=== PATIENT | male | born 1950 | race Two or more races ===

== ENCOUNTER 2020-05-06 07:32 | Outpatient (REF) | payer MEDICARE, SELFPAY ==
[2020-05-06 08:42] LABS: MANUAL DIFF FLAG NO
[2020-05-06 08:46] LABS: Hemoglobin 15.3 g/dl (14.0-18.0); Red Blood Count 4.98 X10*6/uL (4.60-5.80); White Blood Count 9.4 X10*3/uL (4.8-10.8)
[2020-05-06 08:47] LABS: Basophils Absolute Auto 0.1 X10*3/uL (0.0-0.2); Basophils Percent Auto 0.6 % (0-2); Eosinophils Percent Auto 10.5 % (0-4); Hematocrit 45.4 % (42-52); Imm Gran Abs Auto 0.04 X10*3/uL (0.00-0.03); Imm Gran Pct Auto 0.4 % (0.0-0.4); Lymphocytes Absolute Auto 2.3 X10*3/uL (1.2-4.9); Lymphocytes Percent Auto 24.7 % (20-40); Mean Corpuscular HGB Conc 33.7 g/dl (31.0-36.0); Mean Corpuscular Hemoglobin 30.7 pg (27.0-33.0); Mean Corpuscular Volume 91.2 fL (80-98); Mean Platelet Volume 10.7 fL (9.4-12.4); Monocytes Absolute Auto 0.7 X10*3/uL (0.1-1.2); Monocytes Percent Auto 7.5 % (2-11); Neutrophils Absolute Auto 5.3 X10*3/uL (2.0-8.3); Neutrophils Percent Auto 56.3 % (45-73); Platelet Count 228 X10*3/uL (160-400)
[2020-05-06 09:14] LABS: Glucose Urine UA NEG (NEG); Leukocyte Esterase Urine NEG (NEG); Nitrite Urine NEG (NEG); Specific Gravity - Urine >= 1.030 (1.005-1.025); Urine Blood NEG (NEG); Urine Ketones NEG (NEG); Urine Protein 1+ MG/DL (NEG-TRACE)
[2020-05-06 09:16] LABS: Appearance Urine CLEAR; Color Urine YELLOW
[2020-05-06 09:21] LABS: Albumin Level 4.4 g/dL (3.5-5.0); Anion Gap 9 (12-20); Blood Urea Nitrogen 18 mg/dL (9-16); Calcium 9.3 mg/dL (8.4-10.2); Carbon Dioxide 29 mmol/L (22-29); Chloride 108 mmol/L (96-108); Estimated Glomerular Filt Rate 60; Magnesium 2.3 mg/dL (1.6-2.6); Phosphorus 2.5 mg/dL (2.7-4.5); Potassium 4.7 mmol/L (3.3-5.1); Sodium 141 mmol/L (135-145)
[2020-05-06 09:34] LABS: Vitamin D 25-OH Total 23.3 ng/mL (>30)
[2020-05-06 09:41] LABS: Renal w Reflex Lab Use Only Order verified
[2020-05-06 09:41] LABS: UACC CULT YES
[2020-05-06 09:42] LABS: Bacteria Urine TRACE /LPF; Mucus Urine 2+ /LPF; RBC Urine 0-2 /HPF (0); Squamous Epithelial Cell Urine TRACE /LPF
[2020-05-06 10:45] LABS: Creatinine Urine 188.61 mg/dL; Microalbum/Creatinine Ratio Ur 170.7 ug/mg cr; Protein/Creatinine Ratio, Ur 0.33 (<0.2); Total Protein Urine Random 62 mg/dL (<12)
[2020-05-06 12:14] LABS: Renal w Reflex-LAB USE ONLY Order Verified
[2020-05-07 16:36] LABS: Calcium (PTHI) 9.3 mg/dL (8.6-10.3); PTHI 61 pg/mL (14-64)
== END 2020-05-06 07:33 | disposition home or self-care (01) ==
LOC: HO.LAB 07:32
PROVIDERS: PCP Internal Medicine; Visit Provider Internal Medicine Nephrology
DX: I12.9 Hypertensive chronic kidney disease with stage 1 through stage 4 chronic kidney disease, or unspecified chronic kidney disease (principal); N18.31 Chronic kidney disease, stage 3a
CPT/HCPCS: 36415; 80051; 81001; 81003; 82040; 82043; 82306; 82310; 82565; 83735; 83970; 84100; 84156; 84520; 85025; 87086

== ENCOUNTER 2020-06-10 07:09 | Outpatient (REF) | payer MEDICARE, MEDICAID, SELFPAY ==
[2020-06-10 08:46] LABS: Cholesterol 113 mg/dL; HDL Cholesterol 38 mg/dL; LDL Cholesterol Calculated 57 mg/dl; Triglycerides 92 mg/dL
== END 2020-06-10 07:10 | disposition home or self-care (01) ==
LOC: HO.LAB 07:09
PROVIDERS: PCP Internal Medicine; Visit Provider Internal Medicine Cardiovascular Disease
DX: E78.5 Hyperlipidemia, unspecified (principal)
CPT/HCPCS: 36415; 80061

== ENCOUNTER → 2020-08-06 09:42 | Outpatient (REF) | payer MEDICARE, MEDICAID, SELFPAY ==
--- NOTE | ~2020-08-06 | NM_ITS ---
EXERCISE MYOCARDIAL PERFUSION STUDY INDICATION: Coronary disease, NSTEMI, assess for ischemia TECHNIQUE: The patient was brought in for an exercise perfusion study on 08/06/2020. Patient performed exercise as per Justin protocol and was injected 25 mCi of sestamibi once target heart rate was achieved. Images were obtained using the SPECT gamma camera interlaced with the gating device. Images were obtained in supine position. Resting perfusion study was performed on 08/07/2020. Patient was administered 25 mCi of sestamibi intravenously at rest. Images were then obtained in supine position. Total DLP 51mGy-cm. Images were processed with the software and compared side to side in short axis, horizontal long axis and vertical long axis views. FINDINGS: Raw images were reviewed. The stress perfusion study showed diminished tracer uptake along the inferior wall, more so in the basal aspect. With CT attenuation correction, there seems to be improvement and hence suggestive of diaphragmatic attenuation artifact. The gated study shows diminished LV systolic function with calculated LVEF of 48%. LV cavity is normal in size. The gated study shows normal wall thickening and contraction of segments. Resting study shows diminished tracer uptake along the inferior wall, more so in the basal aspect. There is improvement with CT attenuation correction and hence suggestive of diaphragmatic artifact. Gating at rest reveals normal wall motion with ejection fraction at 47%. The findings are consistent with no definite reversible or fixed perfusion defects. NM/NM leydi perf SPECT rest & str IMPRESSION: 1. Myocardial perfusion imaging study shows likely normal perfusion. No definitive evidence of any ischemia or infarction. 2. Gated LVEF is 48% during stress and 47% during rest. 3. Transient ischemic dilatation not present. EKG component of the test reported separately.
--- NOTE | 2020-08-06 09:45 | CA_ITS ---
Acquisition Time: 2020-08-06 10:15:08 Total Exercise Time: 00:05:38 Test Indications: CAD, SC Medications: SEE CHART Protocol: LEONOR Max HR: 131 BPM 87% of Pred: 149 BPM Max BP: 176/084 mmHG Max Work Load: 7.0 METS Exercise stress test with exercise 5 min 38 sec of Leonor protocol, with report of 1/10 mid chest pressure and 1/10 left jaw discomfort, with isolated PACs, with normotensive response to exercise, with up to 1mm hortizontal ST depression V5-V6 at peak exercise, then in recovery developed borderliine ST depression with downsloping STs inferiorly and V4-V6 with gradual improvement back to baseline. In recovery his chest and jaw discomfort resolved. Nuclear images pending. Test reviewed with Dr Eastman. Referred By: Cesar Armenta Overread By: DONATO ROBERTSON
== END ==
LOC: HO.CARD 09:42
PROVIDERS: Visit Provider Internal Medicine Cardiovascular Disease
DX: I25.10 Atherosclerotic heart disease of native coronary artery without angina pectoris (principal)
CPT/HCPCS: 78452; 93017; A9500

== ENCOUNTER 2020-09-25 07:44 | Outpatient (REF) | payer MEDICARE, MEDICAID, SELFPAY ==
[2020-09-25 08:31] LABS: MANUAL DIFF FLAG NO
[2020-09-25 08:33] LABS: Basophils Absolute Auto 0.1 X10*3/uL (0.0-0.2); Basophils Percent Auto 0.7 % (0-2); Eosinophils Absolute Auto 0.7 X10*3/uL (0.0-0.4); Eosinophils Percent Auto 8.1 % (0-4); Hematocrit 43.5 % (42-52); Imm Gran Abs Auto 0.03 X10*3/uL (0.00-0.03); Imm Gran Pct Auto 0.4 % (0.0-0.4); Lymphocytes Absolute Auto 2.1 X10*3/uL (1.2-4.9); Lymphocytes Percent Auto 25.7 % (20-40); Mean Corpuscular HGB Conc 34.5 g/dl (31.0-36.0); Mean Corpuscular Hemoglobin 30.7 pg (27.0-33.0); Mean Platelet Volume 10.6 fL (9.4-12.4); Monocytes Absolute Auto 0.6 X10*3/uL (0.1-1.2); Monocytes Percent Auto 7.3 % (2-11); Neutrophils Absolute Auto 4.7 X10*3/uL (2.0-8.3); Neutrophils Percent Auto 57.8 % (45-73); Platelet Count 256 X10*3/uL (160-400); Red Blood Count 4.89 X10*6/uL (4.60-5.80); Red Cell Distribution Width 12.4 % (11.0-16.0); White Blood Count 8.1 X10*3/uL (4.8-10.8)
[2020-09-25 09:42] LABS: Albumin Level 4.2 g/dL (3.5-5.0); Anion Gap 10 (12-20); Blood Urea Nitrogen 17 mg/dL (9-16); Calcium 9.4 mg/dL (8.4-10.2); Carbon Dioxide 27 mmol/L (22-29); Chloride 106 mmol/L (96-108); Estimated Glomerular Filt Rate 55; Magnesium 2.1 mg/dL (1.6-2.6); Phosphorus 2.3 mg/dL (2.7-4.5); Potassium 4.4 mmol/L (3.3-5.1); Sodium 139 mmol/L (135-145)
[2020-09-25 09:57] LABS: Vitamin D 25-OH Total 31.8 ng/mL (>30)
[2020-09-25 10:16] LABS: Glucose Urine UA NEG (NEG); Leukocyte Esterase Urine NEG (NEG); Nitrite Urine NEG (NEG); Specific Gravity - Urine >= 1.030 (1.005-1.025); Urine Blood NEG (NEG); Urine Ketones 5 MG/DL (NEG); Urine Protein 1+ MG/DL (NEG-TRACE)
[2020-09-25 10:22] LABS: Appearance Urine HAZY; Color Urine YELLOW
[2020-09-25 11:33] LABS: Microalbum/Creatinine Ratio Ur 16.1 ug/mg cr; Total Protein Urine Random 59 mg/dL (<12)
[2020-09-25 12:17] LABS: Bacteria Urine TRACE /LPF; Calcium Oxalate Crystals Urine 1+ /LPF; Mucus Urine 2+ /LPF; RBC Urine 0-2 /HPF (0); Squamous Epithelial Cell Urine 1+ /LPF
[2020-09-26 17:51] LABS: Calcium (PTHI) 9.4 mg/dL (8.6-10.3); PTHI 59 pg/mL (14-64)
== END 2020-09-25 07:45 | disposition home or self-care (01) ==
LOC: HO.LAB 07:44
PROVIDERS: PCP Internal Medicine; Visit Provider Internal Medicine Nephrology
DX: N18.31 Chronic kidney disease, stage 3a (principal)
CPT/HCPCS: 36415; 80051; 81001; 82040; 82043; 82306; 82310; 82565; 83735; 83970; 84100; 84156; 84520; 85025; 87086

== ENCOUNTER 2021-08-03 06:46 | Outpatient (REF) | payer MEDICARE, MEDICAID, SELFPAY ==
[2021-08-03 07:32] LABS: Hematocrit 44.4 % (42.0-52.0); Hemoglobin 15.2 g/dl (14.0-18.0); Mean Corpuscular HGB Conc 34.2 g/dl (31.0-36.0); Mean Corpuscular Hemoglobin 30.6 pg (27.0-33.0); Mean Corpuscular Volume 89.5 fL (80.0-98.0); Mean Platelet Volume 10.4 fL (9.4-12.4); Platelet Count 230 X10*3/uL (160-400); Red Blood Count 4.96 X10*6/uL (4.60-5.80); Red Cell Distribution Width 12.5 % (11.0-16.0); White Blood Count 9.1 X10*3/uL (4.8-10.8)
[2021-08-03 08:01] LABS: Albumin Level 4.3 g/dL (3.5-5.0); Anion Gap 12 (12-20); Blood Urea Nitrogen 22 mg/dL (9-16); Calcium 9.4 mg/dL (8.4-10.2); Carbon Dioxide 23 mmol/L (22-29); Chloride 108 mmol/L (96-108); Estimated Glomerular Filt Rate > 60; Magnesium 2.2 mg/dL (1.6-2.6); Phosphorus 2.5 mg/dL (2.7-4.5); Potassium 4.2 mmol/L (3.3-5.1); Sodium 139 mmol/L (135-145)
[2021-08-03 08:25] LABS: Vitamin D 25-OH Total 30.4 ng/mL (>30)
[2021-08-03 09:13] LABS: Appearance Urine CLEAR; Color Urine YELLOW; Glucose Urine UA NEG (NEG); Leukocyte Esterase Urine NEG (NEG); Nitrite Urine NEG (NEG); Specific Gravity - Urine 1.025 (1.005-1.025); Urine Blood NEG (NEG); Urine Ketones NEG (NEG); Urine Protein NEG (NEG-TRACE)
[2021-08-03 09:37] LABS: Creatinine Urine 138.74 mg/dL; Microalbum/Creatinine Ratio Ur 11.5 ug/mg cr; Total Protein Urine Random 14 mg/dL (<12)
[2021-08-03 09:52] LABS: Mucus Urine 1+ /LPF
[2021-08-03 09:53] LABS: RBC Urine 0 /HPF (0)
[2021-08-03 09:54] LABS: Squamous Epithelial Cell Urine TRACE /LPF
[2021-08-04 14:16] LABS: Calcium (PTHI) 9.4 mg/dL (8.6-10.3); PTHI 68 pg/mL (16-77)
== END 2021-08-03 06:47 | disposition home or self-care (01) ==
LOC: HO.LAB 06:46
PROVIDERS: PCP Internal Medicine; Visit Provider Internal Medicine Nephrology
DX: I12.9 Hypertensive chronic kidney disease with stage 1 through stage 4 chronic kidney disease, or unspecified chronic kidney disease (principal); N18.31 Chronic kidney disease, stage 3a
CPT/HCPCS: 36415; 80051; 81001; 82040; 82043; 82306; 82310; 82565; 83735; 83970; 84100; 84156; 84520; 85027; 87086

== ENCOUNTER → 2021-11-03 08:42 | Outpatient (REF) | payer MEDICARE, MEDICAID, SELFPAY ==
--- NOTE | ~2021-11-03 | NM_ITS ---
EXERCISE MYOCARDIAL PERFUSION STUDY INDICATION: Chest pain, assess for coronary disease and ischemia TECHNIQUE: The patient was brought in for an exercise perfusion study on 11/03/2021. Patient performed exercise as per Justin protocol and was injected 25 mCi of sestamibi once target heart rate was achieved. Images were obtained using the SPECT gamma camera interlaced with the gating device. Images were obtained in supine position. Resting perfusion study was performed on 11/05/2021. Patient was administered 25 mCi of sestamibi intravenously at rest. Images were then obtained in supine position. Total DLP 80mGy-cm. Images were processed with the software and compared side to side in short axis, horizontal long axis and vertical long axis views. FINDINGS: Raw images were reviewed. The stress perfusion study showed diminished tracer uptake in the basal inferior wall and basal inferior septum. With CT attenuation correction, there is some improvement in the inferior wall but the inferior septum still appears to have reduced perfusion. The gated study shows low normal LV systolic function with calculated LVEF of 52%. LV cavity is normal in size. The gated study shows normal wall thickening and contraction of segments. Resting study shows mildly diminished tracer uptake in the basal part of inferior wall but otherwise unremarkable. Gating at rest reveals normal wall motion with ejection fraction at 57%. The findings are consistent with mild reversible perfusion defect in the basal part of inferior wall/inferior septum. However, there is improvement with CT attenuation correction and hence there could also be components of diaphragmatic attenuation artifact. NM/NM leydi perf SPECT rest & str IMPRESSION: 1. Myocardial perfusion imaging study shows probable mild ischemia in the basal inferior/inferoseptal wall, but could also be from diaphragmatic attenuation artifact. 2. Gated LVEF is 52% during stress and 57% during rest. 3. Transient ischemic dilatation not present. EKG component of the test reported separately.
--- NOTE | 2021-11-03 08:46 | CA_ITS ---
Acquisition Time: 2021-11-03 09:07:56 Total Exercise Time: 00:05:01 Test Indications: I21.4 NSTEMI Medications: Protocol: STONEY Max HR: 130 BPM 87% of Pred: 148 BPM Max BP: 172/078 mmHG Max Work Load: 7.0 METS Exercise stress test with exercise 5 min 1 sec of stoney protocol, acheiving 87% MPHR, with fatigue and need to stop, without anginal symptoms, with few isolated PVCs, with normotensive response to exercise, without EKG changes meeting criteria for ischemia. There is scooping ST inferiorly with downsloping ST lead III at baseline and in recovery. Nuclear images pending. Test reviewed with Dr Calle. Referred By: Angelo Brambila Overread By: DONATO ROBERTSON
== END ==
LOC: HO.CARD 08:42
PROVIDERS: PCP Internal Medicine; Visit Provider Physician Assistant Medical
DX: I21.4 Non-ST elevation (NSTEMI) myocardial infarction (principal)
CPT/HCPCS: 78452; 93017; A9500; J0280; J2785

== ENCOUNTER → 2021-12-07 13:47 | Outpatient (BNVA) | payer MEDICARE, MEDICAID, SELFPAY | PROVIDERS: PCP Internal Medicine; Visit Provider Surgery | DX: K64.8 Other hemorrhoids (principal) | CPT/HCPCS: 46600; 99202 ==

== ENCOUNTER → 2021-12-28 09:10 | Outpatient (BNVA) | payer MEDICARE, MEDICAID, SELFPAY | PROVIDERS: PCP Internal Medicine; Visit Provider Anesthesiology | DX: M47.812 Spondylosis without myelopathy or radiculopathy, cervical region (principal); G89.4 Chronic pain syndrome | CPT/HCPCS: 99202 ==

== ENCOUNTER 2022-01-26 06:11 | Outpatient (REF) | payer MEDICARE, MEDICAID, SELFPAY ==
--- NOTE | ~2022-01-26 | FL_ITS ---
EXAMINATION: XR FLUOROSCOPY WITH IMAGES CLINICAL INFORMATION: G89.4 - Chronic pain syndrome COMPARISON: MR cervical spine 02/03/2019, radiographs cervical spine 07/31/2018 TECHNIQUE: Fluoroscopy Supervised By: Dr. Holden Azar. Fluoroscopy Time: 0.7. Cumulative Dose: 5.19 mGy. DAP: 1.13 Gycm2. Images: 6. FINDINGS: There are spinal needles overlying the bilateral lateral masses cervical spine approximately bilateral CC 4, C5, and C6. There is contrast in the paraspinal soft tissues and nerve sheaths. No visible vascular communication. FL/FL guidance in treatment room IMPRESSION: Fluoroscopy for pain management procedure.
== END 2022-01-26 06:12 | disposition home or self-care (01) ==
LOC: CF 06:11
PROVIDERS: Visit Provider Anesthesiology
DX: M47.812 Spondylosis without myelopathy or radiculopathy, cervical region (principal); G89.4 Chronic pain syndrome
CPT/HCPCS: 64490; 64491; J3301

== ENCOUNTER → 2022-03-03 11:06 | Outpatient (BNVA) | payer MEDICARE, MEDICAID, SELFPAY | PROVIDERS: PCP Internal Medicine; Visit Provider Anesthesiology | DX: M47.812 Spondylosis without myelopathy or radiculopathy, cervical region (principal); G89.4 Chronic pain syndrome | CPT/HCPCS: 99212 ==

== ENCOUNTER 2022-03-09 06:19 | Day surgery (SDC) | payer MEDICARE, MEDICAID, SELFPAY ==
--- NOTE | 2021-12-24 | ECG_ITS ---
Test Reason : preop Blood Pressure : / mmHG Vent. Rate : 078 BPM Atrial Rate : 078 BPM P-R Int : 144 ms QRS Dur : 092 ms QT Int : 356 ms P-R-T Axes : 060 -21 006 degrees QTc Int : 405 ms Normal sinus rhythm Nonspecific T wave abnormality Inferior leads Abnormal ECG When compared with ECG of 30-APR-2017 08:13, Nonspecific T wave abnormality has replaced T-wave inversion in Inferior leads Referred By: Saranya Charles Electronically Signed By:RANDY QUIGLEY MD
[2021-12-24 12:00] VITALS: BP 155/85; PULSE 81; RESP 16; O2SAT 100; BMI 26.3
--- NOTE | 2021-12-24 12:56 | P.CONAN_ITS ---
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 Blind left eye. [facility] Active Problems Active Problems: All Active Problems (Updated 12/24/21 @ 12:32 by Lizzeth Duffy RN) Prolapsed hemorrhoids (Acute) Hypertension (Acute) Coronary disease (Acute) Past Medical History Medical History (Updated 12/28/21 @ 10:24 by Holden Azar MD) Bleeding hemorrhoids Blind left eye Coronary disease DDD (degenerative disc disease), cervical Elevated cholesterol Hx of kidney disease Hypertension Prolapsed hemorrhoids Family History Family History (Updated 12/07/21 @ 14:04 by ANANT Campoverde) Maternal Aunt Breast cancer Sister Cancer Brother Prostate cancer Sister Cancer Family history of problems with anesthesia: No Surgical History Surgical History (Updated 12/24/21 @ 11:58 by Lizzeth Duffy RN) History of eye surgery Hx of cardiac catheterization Hx of colonoscopy History of Problems with Anesthesia: No Social History Social History (Updated 12/07/21 @ 14:04 by ANANT Campoverde) Household Members Other:: daughter Are you a primary hemodialysis patient care specialist to a significant other at home: No Do you presently have visiting nurse or other home services: No Alcohol intake: former Patient Tobacco Use Status: Former Tobacco user Quit Date: 2015 Tobacco use type: Cigarette Narrative Narrative: No recent illness >4 mets with activity Meds Allergies Allergy/AdvReac Type Severity Reaction Status Date / Time No Known Allergies Allergy Verified 12/28/21 09:47 [No Known Allergies*] Home Medications Medication Instructions Recorded Confirmed Last Taken Type amlodipine 10 mg tablet 10 mg PO DAILY 12/07/21 12/28/21 Unknown History aspirin 81 mg chewable tablet 1 tab PO DAILY 12/07/21 12/28/21 Unknown History atorvastatin 80 mg tablet 80 mg PO DAILY 12/07/21 12/28/21 Unknown History brimonidine 0.2 % eye drops 1 drp ophthalmic (eye) BID 12/07/21 12/28/21 Unknown History lisinopril 40 mg tablet 40 mg PO DAILY 12/07/21 12/28/21 Unknown History nitroglycerin 0.4 mg sublingual 0.4 mg sublingual .Q5M PRN Chest 12/07/21 12/28/21 Unknown History tablet Pain omeprazole 20 mg capsule,delayed 20 mg PO DAILY PRN Acid Reflux 12/07/21 12/28/21 Unknown History release ticagrelor 60 mg tablet (Brilinta) 60 mg PO BID 12/07/21 12/28/21 Unknown History Exam Exam Date and Time: December 24, 2021 1256 Height,Weight and Vital Signs: Height 5 ft 7 in Weight 76.3 kg Last Vital Signs Pulse 81 12/24/21 12:00 Resp 16 12/24/21 12:00 BP 155/85 H 12/24/21 12:00 Pulse Ox 100 12/24/21 12:00 O2 Del Method 12/24/21 12:00 Pertinent Lab Results Pertinent Lab Results: Laboratory Tests 08/03/21 08/03/21 07:02 07:02 WBC 9.1 Hgb 15.2 Hct 44.4 Plt Count 230 Sodium 139 Potassium 4.2 Chloride 108 Carbon Dioxide 23 BUN 22 H Creatinine 1.18 Narrative Narrative: EKG 12/2021 Vent. Rate : 078 BPM ? ? Atrial Rate : 078 BPM ?? P-R Int : 144 ms? QRS Dur : 092 ms ? ? QT Int : 356 ms ? ? ? P-R-T Axes : 060 -21 006 degrees ?? QTc Int : 405 ms ? Normal sinus rhythm Nonspecific T wave abnormality Inferior leads Abnormal ECG When compared with ECG of 30-APR-2017 08:13, Nonspecific T wave abnormality has replaced T-wave inversion in Inferior leads ECHO 08/2021 1. Nml LV function 2. Overall LV systolic function is normal eith EF 60-65% 3. Diastolic filling pattern is normal 4. EF improved from 03/2020 NM leydi perf SPECT rest & str 10/2021 IMPRESSION: ? 1.? Myocardial perfusion imaging study shows probable mild ischemia in the basal inferior/inferoseptal wall, but could also be from diaphragmatic attenuation artifact. 2.? Gated LVEF is 52% during stress and 57% during rest. 3. Transient ischemic dilatation not present. ? EKG component of the test reported separately. Airway TM Dist: >3cm Neck ROM: Full Loose/Missing/Broken Teeth: Yes (Front teeth loose) Heart: RRR Lungs: CTAB Assessment and Plan Assessment Anesthesia Assessment: Anesthesia Plan Discussed and PAT Visit Final Anesthetic Review Family History of Problems with Anesthesia: No History of Problems with Anesthesia: No
--- NOTE | 2022-01-28 09:16 | P.CONAN_ITS ---
HPI - Anesthesia Eval Consult details Narrative: 71yo M for Hemorrhoidectomy, EUA Stable at 10/2021 Cardiology office visit s/p failed corneal transplant years ago in [place] after foreign body injury. Blind left eye. Pt rescheduled from 12/2021. PAT done 12/24/21 PMF Active Problems Active Problems: All Active Problems (Updated 12/28/21 @ 10:24 by Holden Azar MD) Chronic pain syndrome (Acute) Spondylosis of cervical spine without myelopathy (Acute) Prolapsed hemorrhoids (Acute) Hypertension (Acute) Coronary disease (Acute) Past Medical History Medical History (Updated 12/28/21 @ 10:24 by Holden Azar MD) Bleeding hemorrhoids Blind left eye Coronary disease DDD (degenerative disc disease), cervical Elevated cholesterol Hx of kidney disease Hypertension Prolapsed hemorrhoids Family History Family History (Updated 12/07/21 @ 14:04 by ANANT Campoverde) Maternal Aunt Breast cancer Sister Cancer Brother Prostate cancer Sister Cancer Family history of problems with anesthesia: No Surgical History Surgical History (Updated 12/24/21 @ 11:58 by Lizzeth Duffy RN) History of eye surgery Hx of cardiac catheterization Hx of colonoscopy History of Problems with Anesthesia: No Social History Social History (Updated 12/07/21 @ 14:04 by ANANT Campoverde) Household Members Other:: daughter Are you a primary childcare administrator to a significant other at home: No Do you presently have visiting nurse or other home services: No Alcohol intake: former Patient Tobacco Use Status: Former Tobacco user Quit Date: 2015 Tobacco use type: Cigarette Meds Allergies Allergy/AdvReac Type Severity Reaction Status Date / Time No Known Allergies Allergy Verified 01/26/22 07:58 [No Known Allergies*] Home Medications Medication Instructions Recorded Confirmed Last Taken Type amlodipine 10 mg tablet 10 mg PO DAILY 12/07/21 12/28/21 Unknown History aspirin 81 mg chewable tablet 1 tab PO DAILY 12/07/21 12/28/21 Unknown History atorvastatin 80 mg tablet 80 mg PO DAILY 12/07/21 12/28/21 Unknown History brimonidine 0.2 % eye drops 1 drp ophthalmic (eye) BID 12/07/21 12/28/21 Unknown History lisinopril 40 mg tablet 40 mg PO DAILY 12/07/21 12/28/21 Unknown History nitroglycerin 0.4 mg sublingual 0.4 mg sublingual .Q5M PRN Chest 12/07/21 12/28/21 Unknown History tablet Pain omeprazole 20 mg capsule,delayed 20 mg PO DAILY PRN Acid Reflux 12/07/21 12/28/21 Unknown History release ticagrelor 60 mg tablet (Brilinta) 60 mg PO BID 12/07/21 12/28/21 Unknown History Exam Exam Date and Time: January 28, 2022 0916 Height,Weight and Vital Signs: Height 5 ft 7 in Weight 76.3 kg Last Vital Signs Pulse 81 12/24/21 12:00 Resp 16 12/24/21 12:00 BP 155/85 H 12/24/21 12:00 Pulse Ox 100 12/24/21 12:00 O2 Del Method 12/24/21 12:00 Pertinent Lab Results Pertinent Lab Results: Laboratory Tests 08/03/21 08/03/21 07:02 07:02 WBC 9.1 Hgb 15.2 Hct 44.4 Plt Count 230 Sodium 139 Potassium 4.2 Chloride 108 Carbon Dioxide 23 BUN 22 H Creatinine 1.18 Narrative Narrative: EKG 12/2021 Vent. Rate : 078 BPM ? ? Atrial Rate : 078 BPM ?? P-R Int : 144 ms? QRS Dur : 092 ms ? ? QT Int : 356 ms ? ? ? P-R-T Axes : 060 -21 006 degrees ?? QTc Int : 405 ms ? Normal sinus rhythm Nonspecific T wave abnormality Inferior leads Abnormal ECG When compared with ECG of 30-APR-2017 08:13, Nonspecific T wave abnormality has replaced T-wave inversion in Inferior leads ECHO 08/2021 1. Nml LV function 2. Overall LV systolic function is normal eith EF 60-65% 3. Diastolic filling pattern is normal 4. EF improved from 03/2020 NM leydi perf SPECT rest & str 10/2021 IMPRESSION: ? 1.? Myocardial perfusion imaging study shows probable mild ischemia in the basal inferior/inferoseptal wall, but could also be from diaphragmatic attenuation artifact. 2.? Gated LVEF is 52% during stress and 57% during rest. 3. Transient ischemic dilatation not present. ? EKG component of the test reported separately. Airway TM Dist: >3cm Neck ROM: Full Loose/Missing/Broken Teeth: Yes (Front teeth loose) Heart: RRR Lungs: CTAB Assessment and Plan Assessment Anesthesia Assessment: Anesthesia Plan Discussed and PAT Visit (12/24/21) Final Anesthetic Review Family History of Problems with Anesthesia: No History of Problems with Anesthesia: No
[2022-03-04 10:36] VITALS: BMI 22.7
--- NOTE | 2022-03-08 10:02 | P.CONAN_ITS ---
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 Blind left eye. [facility] Active Problems Active Problems: All Active Problems (Updated 12/28/21 @ 10:24 by Holden Azar MD) Spondylosis of cervical spine without myelopathy (Acute) Chronic pain syndrome (Acute) Prolapsed hemorrhoids (Acute) Hypertension (Acute) Coronary disease (Acute) Past Medical History Medical History Bleeding hemorrhoids Blind left eye Coronary disease DDD (degenerative disc disease), cervical Elevated cholesterol Hx of kidney disease Hypertension Prolapsed hemorrhoids Family History Family History (Updated 12/07/21 @ 14:04 by ANANT Campoverde) Maternal Aunt Breast cancer Sister Cancer Brother Prostate cancer Sister Cancer Family history of problems with anesthesia: No Surgical History Surgical History H/O tooth extraction History of eye surgery Hx of cardiac catheterization Hx of colonoscopy History of Problems with Anesthesia: No Social History Social History (Updated 12/07/21 @ 14:04 by ANANT Campoverde) Household Members Other:: daughter Are you a primary child care to a significant other at home: No Do you presently have visiting nurse or other home services: No Alcohol intake: former Patient Tobacco Use Status: Former Tobacco user Quit Date: 2015 Tobacco use type: Cigarette Use of substances other than those prescribed or required for medical reasons: No Have you been hit, kicked, punched, or otherwise hurt by someone within the past year? If so, by whom?: No Spiritual Healthcare Practices: none Protestant Healthcare Practices: none Cultural Healthcare Practices: none Are you DNR?: No Advance Directives: No Advance Directives Information Provided: Yes Advance Directives on File: No Recently lost weight without trying: No Nutrition Risks: No Nutritional Risk Poor oral hygiene: Yes (some loose teeth 2 upper) Meds Allergies Allergy/AdvReac Type Severity Reaction Status Date / Time No Known Allergies Allergy Verified 03/09/22 06:36 [No Known Allergies*] Home Medications Medication Instructions Recorded Confirmed Last Taken Type amlodipine 10 mg tablet 10 mg PO DAILY 12/07/21 03/09/22 03/09/22 05:45 History aspirin 81 mg chewable tablet 1 tab PO DAILY 12/07/21 03/09/22 03/05/22 History atorvastatin 80 mg tablet 80 mg PO DAILY 12/07/21 12/28/21 Unknown History brimonidine 0.2 % eye drops 1 drp ophthalmic (eye) BID 12/07/21 12/28/21 Unknown History lisinopril 40 mg tablet 40 mg PO DAILY 12/07/21 12/28/21 Unknown History nitroglycerin 0.4 mg sublingual 0.4 mg sublingual .Q5M PRN Chest 12/07/21 12/28/21 Unknown History tablet Pain omeprazole 20 mg capsule,delayed 20 mg PO DAILY PRN Acid Reflux 12/07/21 12/28/21 Unknown History release ticagrelor 60 mg tablet (Brilinta) 60 mg PO BID 12/07/21 03/09/22 03/05/22 History Exam Exam Date and Time: March 08, 2022 1002 Height,Weight and Vital Signs: Height 5 ft 7 in Weight 65.771 kg Last Vital Signs Pulse 81 12/24/21 12:00 Resp 16 12/24/21 12:00 BP 155/85 H 12/24/21 12:00 Pulse Ox 100 12/24/21 12:00 O2 Del Method 12/24/21 12:00 Narrative Narrative: EKG 12/2021 Vent. Rate : 078 BPM ? ? Atrial Rate : 078 BPM ?? P-R Int : 144 ms? QRS Dur : 092 ms ? ? QT Int : 356 ms ? ? ? P-R-T Axes : 060 -21 006 degrees ?? QTc Int : 405 ms ? Normal sinus rhythm Nonspecific T wave abnormality Inferior leads Abnormal ECG When compared with ECG of 30-APR-2017 08:13, Nonspecific T wave abnormality has replaced T-wave inversion in Inferior leads ECHO 08/2021 1. Nml LV function 2. Overall LV systolic function is normal eith EF 60-65% 3. Diastolic filling pattern is normal 4. EF improved from 03/2020 NM leydi perf SPECT rest & str 10/2021 IMPRESSION: ? 1.? Myocardial perfusion imaging study shows probable mild ischemia in the basal inferior/inferoseptal wall, but could also be from diaphragmatic attenuation artifact. 2.? Gated LVEF is 52% during stress and 57% during rest. 3. Transient ischemic dilatation not present. ? EKG component of the test reported separately. Airway TM Dist: >3cm Neck ROM: Full Loose/Missing/Broken Teeth: Yes (Front teeth loose) Heart: RRR Lungs: CTAB Assessment and Plan Assessment Anesthesia Assessment: Chart Reviewed Final Anesthetic Review Family History of Problems with Anesthesia: No History of Problems with Anesthesia: No Documented by User: Emmanuel Padron MD 03/09/22 08:30 HPI - Anesthesia Eval Consult details Narrative: 71yo M for Hemorrhoidectomy, EUA Brilinta for CAD s/p stents x 2 (2017) s/p all teeth pulled 12/2021 Stable at 10/2021 Cardiology office visit s/p failed corneal transplant years ago in [place] after foreign body injury. Blind left eye. [facility] Past Medical History Medical History Bleeding hemorrhoids Blind left eye Coronary disease DDD (degenerative disc disease), cervical Elevated cholesterol Hx of kidney disease Hypertension Prolapsed hemorrhoids Family History Family History (Updated 12/07/21 @ 14:04 by ANANT Campoverde) Maternal Aunt Breast cancer Sister Cancer Brother Prostate cancer Sister Cancer Family history of problems with anesthesia: No Surgical History Surgical History H/O tooth extraction History of eye surgery Hx of cardiac catheterization Hx of colonoscopy History of Problems with Anesthesia: No Social History Social History (Updated 12/07/21 @ 14:04 by ANANT Campoverde) Household Members Other:: daughter Are you a primary child care to a significant other at home: No Do you presently have visiting nurse or other home services: No Alcohol intake: former Patient Tobacco Use Status: Former Tobacco user Quit Date: 2015 Tobacco use type: Cigarette Use of substances other than those prescribed or required for medical reasons: No Have you been hit, kicked, punched, or otherwise hurt by someone within the past year? If so, by whom?: No Spiritual Healthcare Practices: none Protestant Healthcare Practices: none Cultural Healthcare Practices: none Are you DNR?: No Advance Directives: No Advance Directives Information Provided: Yes Advance Directives on File: No Recently lost weight without trying: No Nutrition Risks: No Nutritional Risk Poor oral hygiene: Yes (some loose teeth 2 upper) Meds Allergies Allergy/AdvReac Type Severity Reaction Status Date / Time No Known Allergies Allergy Verified 03/09/22 06:36 [No Known Allergies*] Home Medications Medication Instructions Recorded Confirmed Last Taken Type amlodipine 10 mg tablet 10 mg PO DAILY 12/07/21 03/09/22 03/09/22 05:45 History aspirin 81 mg chewable tablet 1 tab PO DAILY 12/07/21 03/09/22 03/05/22 History atorvastatin 80 mg tablet 80 mg PO DAILY 12/07/21 12/28/21 Unknown History brimonidine 0.2 % eye drops 1 drp ophthalmic (eye) BID 12/07/21 12/28/21 Unknown History lisinopril 40 mg tablet 40 mg PO DAILY 12/07/21 12/28/21 Unknown History nitroglycerin 0.4 mg sublingual 0.4 mg sublingual .Q5M PRN Chest 12/07/21 12/28/21 Unknown History tablet Pain omeprazole 20 mg capsule,delayed 20 mg PO DAILY PRN Acid Reflux 12/07/21 12/28/21 Unknown History release ticagrelor 60 mg tablet (Brilinta) 60 mg PO BID 12/07/21 03/09/22 03/05/22 History Exam Airway Mallampati Class: I TM Dist: >3cm Neck ROM: Full Denture: Upper and Lower Heart: ok. no CP. Lungs: ok Assessment and Plan Final Anesthetic Review Family History of Problems with Anesthesia: No History of Problems with Anesthesia: No NPO: Yes ASA Class: IV Final Preanesthetic Review: No Changes in Pt Med Stat, Meds/Allgs Chart Reviewed, Consent Obtained/Reviewed and Anes Risks/Benef Reviewed Patient Risk: High Procedure Risk: Intermediate Anesthetic Plan Anesthetic Plan: GA and Agree w/ Assess. and Plan Disposition: Standard PACU
[2022-03-09] VITALS (7 sets, daily range): BP systolic 137–143; BP diastolic 79–85; PULSE 73–85; RESP 15–16; TEMP 36.7–37.2; O2SAT 96–98
[2022-03-09 06:54] LABS: Hematocrit 46.6 % (42.0-52.0); Hemoglobin 16.1 g/dl (14.0-18.0); Mean Corpuscular HGB Conc 34.5 g/dl (31.0-36.0); Mean Corpuscular Hemoglobin 30.7 pg (27.0-33.0); Mean Corpuscular Volume 88.9 fL (80.0-98.0); Mean Platelet Volume 10.1 fL (9.4-12.4); Platelet Count 230 X10*3/uL (160-400); Red Blood Count 5.24 X10*6/uL (4.60-5.80); White Blood Count 8.9 X10*3/uL (4.8-10.8)
[2022-03-09] MEDS: Lactated Ringers 1,000 ML 100 ML IVCONT (06:54)
[2022-03-09 07:20] LABS: Anion Gap 11 (12-20); Blood Urea Nitrogen 19 mg/dL (9-16); Calcium 9.7 mg/dL (8.4-10.2); Carbon Dioxide 28 mmol/L (22-29); Chloride 106 mmol/L (96-108); Creatinine Clr Calc Pharmacy 50.1; Estimated Glomerular Filt Rate 58; Glucose Fasting 93 mg/dL (60-99); Potassium 4.4 mmol/L (3.3-5.1); Sodium 141 mmol/L (135-145)
--- NOTE | 2022-03-09 07:34 | MHC.SHP ---
Pre-Procedural Eval Section A Date of Service: 03/09/22 Section B Chief Complaint: Other hemorrhoids Details of Present Illness: has prolapsing hemorrhoids, with signficant discomfort, pain Relevant Family History (Specify if Yes): No Relevant Social History: None Present Medications: see Short Stay Collaborative assessment Medical History: Significant History (CAD, chronic pain syndrome) History of Previous Operations: Relevant previous surgery/procedure and date(s) Allergies: Allergies Allergy/AdvReac Type Severity Reaction Status Date / Time No Known Allergies Allergy Verified 03/09/22 06:36 [No Known Allergies*] Review of Systems Sugical H&P ROS: Negative: Constitution, Cardiovascular, Respiratory, Neurological, Psychiatric, Hem-Onc, Allergic/Immunologic, Gastrointestinal, Genitourinary, Musculoskeletal, Integumentary, Endocrine and Eyes/Ears/Nose/Throat Exam Surgical H&P Exam: Normal: HEENT, Normal: Heart, Normal: Lungs, Normal: Extremities, Normal: Abdomen, Normal: Skin and Normal: Neurological Plan Diagnosis/Plan: Unchanged I have reviewed the history and physical and performed a pertinent physical examination on my patient. No changes have occurred unless specified. Time Spent With Patient Time: Total time managing care of this patient today ____ minutes.
--- NOTE | 2022-03-09 09:09 | W.PM.OPN ---
Operative Note Operative Note Date of Service: 03/09/22 Narrative: Preop diagnosis: Internal and external hemorrhoids with prolapse and discomfort Postop diagnosis: The same Procedure: Exam under anesthesia hemorrhoidectomy x2 columns Surgeon: Samuel Stein MD The patient is a 71-year-old male with note of bulky internal and external hemorrhoidal columns with prolapse on both the left and right side. In view of chronic discomfort wanted to proceed with hemorrhoidectomy. He understood the technique of the procedure as well as the risks, benefits, and alternatives He was brought to the operating room and placed in prone roel-knife position under general anesthesia via laryngeal mask airway. The buttocks were retracted with wide tape laterally. The patient was prepped and draped in the usual sterile fashion. A surgical time-out was done. The patient received Cefotan 2 g IV preoperatively. Examination of the anal orifice revealed large hemorrhoidal columns, external on both the left and right side. I inserted abuse Banegas retractor and examined the anal canal circumferentially. Again this hemorrhoidal columns were noted and were a mix of both internal external. There were no other lesions. There was no fissure induration I applied a Hassan grasper at the hemorrhoidal column on the left to retract this out into the field. I placed a agiygf-lz-tnzga stitch at the pedicle past the dentate line using chromic 3-0. I made an incision around this hemorrhoidal column to the perianal skin using blade 15. And excised this hemorrhoidal column above the plane of sphincters using scissors. I closed this incision with a running chromic 3-0 stitch with additional hemostatic lycqoy-ss-wwiyz sutures placed for oozing areas. I repeated the procedure on the hemorrhoidal column on the right. Again the hemorrhoidal column was retracted using the Hassan grasper. I made a fxapre-ps-opqxd stitch at the pedicle. I made incision around this hemorrhoidal column using blade 15. And excised this above the plane of the sphincters using Metzenbaum scissors. I closed the incision with running chromic 3-0 sutures. Additional hemostatic mvxqwh-pv-volkv sutures were placed . Once hemostasis was confirmed, I proceeded to then infiltrated the perianal area with Marcaine 0.5% for postop analgesia. Dressings were applied. The procedure was completed. The patient tolerated well. There were no immediate complications. Initial and final counts of sponges and instruments were correct. Estimated blood loss about 20 cc The patient was extubated without difficulty and transferred to the recovery room with stable vital signs.
[2022-03-09] MEDS: oxyCODONE HCl Immed Release 5 MG TABLET PO (09:49)
[2022-03-09] MEDS: Acetaminophen 325 MG TABLET 650 MG PO (09:50)
== END 2022-03-09 11:10 | disposition home or self-care (01) ==
PROVIDERS: Nurse Practitioner; PCP Internal Medicine; Visit Provider Surgery
PROC: (CPT 46260; principal; 2022-03-09 08:30)
DX: K64.8 Other hemorrhoids (principal); I25.10 Atherosclerotic heart disease of native coronary artery without angina pectoris; Z98.61 Coronary angioplasty status; I10 Essential (primary) hypertension; E78.00 Pure hypercholesterolemia, unspecified; Z79.01 Long term (current) use of anticoagulants; Z79.82 Long term (current) use of aspirin; Z79.899 Other long term (current) drug therapy; H54.62 Unqualified visual loss, left eye, normal vision right eye; Z87.828 Personal history of other (healed) physical injury and trauma; Z98.890 Other specified postprocedural states; Z87.891 Personal history of nicotine dependence; K64.4 Residual hemorrhoidal skin tags
CPT/HCPCS: 46260; 36415; 80048; 85027; 88304; 93005; J3010

== ENCOUNTER → 2022-03-22 10:40 | Outpatient (BNVA) | payer MEDICARE, MEDICAID, SELFPAY | PROVIDERS: PCP Internal Medicine; Visit Provider Surgery | DX: Z13.89 Encounter for screening for other disorder (principal) | CPT/HCPCS: 99212 ==

== ENCOUNTER 2022-07-09 06:55 | Outpatient (REF) | payer MEDICARE, MEDICAID, SELFPAY ==
[2022-07-09 08:05] LABS: Anion Gap 11 (12-20); Blood Urea Nitrogen 12 mg/dL (9-16); Calcium 9.5 mg/dL (8.4-10.2); Carbon Dioxide 26 mmol/L (22-29); Chloride 109 mmol/L (96-108); Estimated Glomerular Filt Rate > 60; Glucose Random 99 mg/dL (60-115); Potassium 4.5 mmol/L (3.3-5.1); Sodium 141 mmol/L (135-145)
[2022-07-09 08:31] LABS: Appearance Urine Clear; Color Urine Yellow; Glucose Urine UA Negative (Negative); Leukocyte Esterase Urine Trace (Negative); Nitrite Urine Negative (Negative); PH 5.5 (5.0-9.0); Specific Gravity - Urine 1.025 (1.005-1.025); UMIC TRIGGER UACC YES; Urine Blood Negative (Negative); Urine Ketones Negative (Negative); Urine Protein Trace mg/dL (Neg-Trace)
[2022-07-09 08:57] LABS: Bacteria Urine None Seen (None Seen); Hyaline Casts Urine 0-2 /LPF (0-2); RBC Urine 0-2 /HPF (0-2); Squamous Epithelial Cell Urine 0-2 /HPF (0-2); WBC Urine 0-5 /HPF (0-5)
== END 2022-07-09 06:56 | disposition home or self-care (01) ==
LOC: HO.LAB 06:55
PROVIDERS: PCP Internal Medicine; Visit Provider Internal Medicine Hypertension Specialist
DX: I12.9 Hypertensive chronic kidney disease with stage 1 through stage 4 chronic kidney disease, or unspecified chronic kidney disease (principal); N18.2 Chronic kidney disease, stage 2 (mild)
CPT/HCPCS: 36415; 80048; 81001

== ENCOUNTER → 2022-10-27 09:12 | Outpatient (BNVA) | payer MEDICARE, MEDICAID, SELFPAY | PROVIDERS: PCP Internal Medicine; Visit Provider Nurse Practitioner Family ==

== ENCOUNTER 2022-12-29 12:53 | Outpatient (AMB) | payer MEDICARE, MEDICAID, SELFPAY ==
--- NOTE | 2022-12-29 13:02 | A.OFFVIS_ITS ---
Intake Vital Signs 12/29/22 13:14 Height 5 ft 7 in Weight 166 lb 8 oz BMI 26.1 BP 136/80 Blood Pressure Location Lt brachial Position Sitting Respiration 16 Pulse 84 Pulse Source Pulse Oximeter Pulse Oximetry (%) 97 Oxygen Delivery Method Room Air Intake Visit Reasons: Follow up per Dr. Azar /CONFIRMED Allergies No Known Allergies [No Known Allergies*] Allergy (Verified 12/29/22 13:16) HPI HPI Comments History of Present Illness0 Details Mr. Rivas is back in my office after bilateral therapeutic C4-C5 C6 medial branch block which was performed on 01/26/2022. originally he reported 80 to 100% pain improvement as the result of the injection.The initial pain relieve after the procedure in January of 2022 lasted according to the patient 4-5 months. He reported that his pain went back and now he is suffering again as much as he was before the initial injection. Despite this the patient's insurance company did not allow me to perform the repeat of the injection. The insurance requested us to perform CAROL for the neck. We administered CAROL for the neck for this patient - his total score is = 70. Therefore the patient is totally disabled because of his neck condition. The entire score of the Pain and Disability questioner is uploaded in the chart. Prior: complains on cervicalgia.? He reports 10 years of suffering from this pain. He is self mobile.? He reports that pain is worse with sitting and standing up and is aggravated turning of the head.?? He never had physical therapy for his pain in the neck.? He had MRI done results of which are dictated as below.? His past medical history is significant for hypertension and coronary artery disease.? He had stents done in the past and he is on Brilinta.? The Brilinta needs to be stopped before the procedure.? The matter of fact he is going for general surgery unrelated to his cervical pain and his Brilinta will be stopped COUNT INCLUDES THE [facility] Medical History Bleeding hemorrhoids Blind left eye Coronary disease DDD (degenerative disc disease), cervical Elevated cholesterol Hx of kidney disease Hypertension Prolapsed hemorrhoids Surgical History H/O tooth extraction History of eye surgery Hx of cardiac catheterization Hx of colonoscopy Family History Maternal Aunt Breast cancer Sister Cancer Brother Prostate cancer Sister Cancer Social History Household Members Other:: daughter Are you a primary manager progressive care to a significant other at home: No Do you presently have visiting nurse or other home services: No Alcohol intake: former Patient Tobacco Use Status: Former Tobacco user Quit Date: 2015 Tobacco use type: Cigarette Review of Systems Const All systems reviewed & are unremarkable except as noted in HPI and below ENT Reports Normal hearing present Neuro Reports Normal hearing present, Denies Abnormal speech present, Denies confusion and Denies Sensory deficit (Neuro) Psych Denies confusion Physical Exam Vital Signs: Last Vital Signs Pulse 84 12/29/22 13:14 Resp 16 12/29/22 13:14 BP 136/80 12/29/22 13:14 Pulse Ox 97 12/29/22 13:14 Oxygen Delivery Method Room Air 12/29/22 13:14 BMI result Body Mass Index 26.1 Const General: No confusion Orientation/consciousness: No confusion Eyes General: appearance normal, both eyes and all related structures Pupils: Equal, round and reactive pupils present EOM: EOMs intact bilaterally Neck Other: Patient reports most of the pain on the neck with lateral rotation of the head. Flexing forward and flexing backwards does not aggravate his pain. He has significant pain increase with Valsalva maneuver. Axial compression and axial extension do not change his pain. Lhermitte is negative. Spurling is negative. Neck: Yes full ROM Chest Chest palpation & inspection: normal inspection of the chest Resp Effort & Inspection: normal respiratory effort, able to speak in complete sentences, normal respiratory pattern, no audible wheezes and no cough Cardio Jugular venous distension: no JVD GI Inspection: Yes normal to inspection Neuro General: No confusion Cranial nerves: Yes CN's II-XII intact bilaterally, Yes Equal, round and reactive pupils present, Yes Normal hearing present and Yes Ability to bilaterally elevate shoulders present Speech: No Abnormal speech present Gait exam (Neuro): Normal gait present Motor exam (neuro): 5/5 motor strength present throughout Sensory Exam: No Sensory deficit (Neuro) Assessment & Plan Assessment & Plan (1) Spondylosis of cervical spine without myelopathy: Code(s): M47.812 - Spondylosis without myelopathy or radiculopathy, cervical region (2) Chronic pain syndrome: Code(s): G89.4 - Chronic pain syndrome Plan Very good results of bilateral therapeutic C4-C5 C6 medial branch block (01/26/2022) to alleviate pain in the neck. 80 to 100 % pain improvement. Pain relieve lasted 4-5 moths and after that the pain gradually returned. The patient requested me to perform the repeat of the procedure, however his insurance requested us to fill CAROL. WE administered it today. His CAROL =70 he is totally disabled. We will request the insurance to approve the procedure. Coding Level of Care Code Est Pt Level 3 (16097) Diagnoses Spondylosis of cervical spine without myelopathy M47.812 Chronic pain syndrome G89.4
[2022-12-29 13:14] VITALS: BP 136/80; PULSE 84; RESP 16; O2SAT 97; BMI 26.1
== END 2022-12-29 13:49 | disposition home or self-care (01) ==
PROVIDERS: PCP Internal Medicine; Visit Provider Anesthesiology
DX: M47.812 Spondylosis without myelopathy or radiculopathy, cervical region (principal); G89.4 Chronic pain syndrome
CPT/HCPCS: 99213

== ENCOUNTER → 2022-12-29 12:53 | Outpatient (BNVA) | payer MEDICARE, MEDICAID, SELFPAY | PROVIDERS: PCP Internal Medicine; Visit Provider Anesthesiology | DX: M47.812 Spondylosis without myelopathy or radiculopathy, cervical region (principal); G89.4 Chronic pain syndrome | CPT/HCPCS: 99212 ==

== ENCOUNTER 2023-06-29 12:00 | Outpatient (RCR) | payer MEDICARE, MEDICAID, SELFPAY | END 2023-07-04 10:58 | disposition home or self-care (01) | LOC: HO.PT 12:00 | PROVIDERS: PCP Internal Medicine; Visit Provider Internal Medicine | DX: M47.812 Spondylosis without myelopathy or radiculopathy, cervical region (principal) | CPT/HCPCS: 97110; 97140; 97162 ==

== ENCOUNTER 2023-07-16 07:12 | Outpatient (REF) | payer MEDICARE, MEDICAID, SELFPAY ==
[2023-07-16 07:36] LABS: MANUAL DIFF FLAG NO
[2023-07-16 07:55] LABS: Basophils Absolute Auto 0.1 X10*3/uL (0.0-0.2); Basophils Percent Auto 0.9 % (0-2); Eosinophils Absolute Auto 0.8 X10*3/uL (0.0-0.4); Eosinophils Percent Auto 10.7 % (0-4); Hematocrit 44.9 % (42.0-52.0); Hemoglobin 15.6 g/dl (14.0-18.0); Imm Gran Abs Auto 0.03 X10*3/uL (0.00-0.03); Imm Gran Pct Auto 0.4 % (0.0-0.4); Lymphocytes Absolute Auto 2.1 X10*3/uL (1.2-4.9); Lymphocytes Percent Auto 26.7 % (20-40); Mean Corpuscular HGB Conc 34.7 g/dl (31.0-36.0); Mean Corpuscular Hemoglobin 31.4 pg (27.0-33.0); Mean Corpuscular Volume 90.3 fL (80.0-98.0); Mean Platelet Volume 10.9 fL (9.4-12.4); Monocytes Absolute Auto 0.6 X10*3/uL (0.1-1.2); Monocytes Percent Auto 7.9 % (2-11); Neutrophils Absolute Auto 4.1 x10*3/uL (2.0-8.3); Neutrophils Percent Auto 53.4 % (45-73); Platelet Count 193 X10*3/uL (160-400); Red Blood Count 4.97 X10*6/uL (4.60-5.80); Red Cell Distribution Width 12.2 % (11.0-16.0); White Blood Count 7.7 X10*3/uL (4.8-10.8)
[2023-07-16 08:15] LABS: Appearance Urine Clear; Color Urine Yellow; Glucose Urine UA Negative (Negative); Leukocyte Esterase Urine Negative (Negative); Nitrite Urine Negative (Negative); PH 6.5 (5.0-9.0); Urine Blood Negative (Negative); Urine Ketones Negative (Negative); Urine Protein Negative (Neg-Trace)
[2023-07-16 08:19] LABS: Bacteria Urine None Seen (None Seen); Hyaline Casts Urine 0-2 /LPF (0-2); RBC Urine 0-2 /HPF (0-2); Squamous Epithelial Cell Urine 0-2 /HPF (0-2); WBC Urine 0-5 /HPF (0-5)
[2023-07-16 08:33] LABS: Alanine Aminotransferase 20 U/L (0-40); Albumin Level 4.3 g/dL (3.5-5.0); Alkaline Phosphatase 61 U/L (39-117); Anion Gap 12 (12-20); Aspartate Amino Transferase 22 U/L (5-37); Bilirubin Direct 0.3 mg/dL (0.0-0.5); Bilirubin Total 0.7 mg/dL (0.0-1.0); Blood Urea Nitrogen 24 mg/dL (9-16); Calcium 9.5 mg/dL (8.4-10.2); Carbon Dioxide 26 mmol/L (22-29); Chloride 109 mmol/L (96-108); Cholesterol 115 mg/dL (<200); Estimated Glomerular Filt Rate 55; Glucose Random 106 mg/dL (60-115); HDL Cholesterol 41 mg/dL (>40); LDL Cholesterol Calculated 56 mg/dL (<100); Potassium 4.6 mmol/L (3.3-5.1); Sodium 142 mmol/L (135-145); Total Protein 7.7 g/dL (6.5-8.0); Triglycerides 93 mg/dL (<150)
[2023-07-16 08:37] LABS: Albumin Level 4.3 g/dL (3.5-5.0); Anion Gap 12 (12-20); Blood Urea Nitrogen 23 mg/dL (9-16); Calcium 9.2 mg/dL (8.4-10.2); Carbon Dioxide 26 mmol/L (22-29); Chloride 108 mmol/L (96-108); Estimated Glomerular Filt Rate 54; Magnesium 2.1 mg/dL (1.6-2.6); Phosphorus 2.3 mg/dL (2.7-4.5); Potassium 4.1 mmol/L (3.3-5.1); Sodium 142 mmol/L (135-145)
[2023-07-16 08:54] LABS: Vitamin D 25-OH Total 33.7 ng/mL (>30)
[2023-07-16 09:24] LABS: Microalbum/Creatinine Ratio Ur 6.2 ug/mg cr (<30); Total Protein Urine Random < 7 mg/dL (<12)
[2023-07-19 08:44] LABS: ~HepC Num1 0.09 S/CO (0.00-0.79); ~Hepatitis C Antibody Nonreactive (Nonreactive)
== END 2023-07-16 07:13 | disposition home or self-care (01) ==
LOC: HO.LAB 07:12
PROVIDERS: Absent Provider Internal Medicine; PCP Internal Medicine; Visit Provider Internal Medicine Nephrology
DX: I12.9 Hypertensive chronic kidney disease with stage 1 through stage 4 chronic kidney disease, or unspecified chronic kidney disease (principal); R82.90 Unspecified abnormal findings in urine; N18.31 Chronic kidney disease, stage 3a
CPT/HCPCS: 36415; 80048; 80051; 80061; 80076; 81001; 82040; 82043; 82306; 82310; 82565; 82570; 83735; 83970; 84100; 84156; 84520; 85025; 86803; 87086

== ENCOUNTER 2023-11-09 09:22 | Outpatient (REF) | payer MEDICARE, MEDICAID, SELFPAY ==
--- NOTE | ~2023-11-09 | XR_ITS ---
EXAMINATION: XR SHOULDER, LEFT CLINICAL INFORMATION: Dramatic pain in left shoulder COMPARISON: None available. TECHNIQUE: AP external rotation, Grashey, scapular Y, and axillary views of the left shoulder. FINDINGS: There is no fracture or dislocation. Glenohumeral joint and acromioclavicular joint are unremarkable. There is minimal spurring at the greater tuberosity due to degenerative changes. Soft tissues are normal XR/XR shoulder LT min 2V IMPRESSION: Minor degenerative changes. Electronically signed by: Veronica Etienne MD 11/09/2023 10:53 AM EDT
== END 2023-11-09 09:23 | disposition home or self-care (01) ==
LOC: HO.HHCX 09:22
PROVIDERS: Visit Provider Emergency Medicine
DX: M25.512 Pain in left shoulder (principal)
CPT/HCPCS: 73030

== ENCOUNTER 2023-11-24 14:00 | Outpatient (AMB) | payer MEDICARE, MEDICAID, SELFPAY ==
--- NOTE | 2023-11-24 14:09 | MHC.OFFVIS ---
Vital Signs 11/24/23 14:14 Height 5 ft 7 in Weight 164 lb 6 oz BMI 25.7 BP 164/86 H Blood Pressure Location Lt brachial Position Sitting Respiration 14 Pulse 69 Pulse Source Pulse Oximeter Pulse Oximetry (%) 98 Oxygen Delivery Method Room Air Intake Visit Reasons: F/U Cervical spondylosis Intake Note: Patient comes in for follow up. Reports pain 6/10. Allergies No Known Allergies [No Known Allergies*] Allergy (Verified 11/24/23 14:16) HPI Comments Details: Mr. Rivas is back in my office after almost 1 year of absence. In the past he received bilateral therapeutic C4-C5 C6 medial branch block which was performed on 01/26/2022. originally he reported 80 to 100% pain improvement as the result of the injection.The initial pain relieve after the procedure in January of 2022 lasted according to the patient 4-5 months. He reported that his pain went back and now he is suffering again as much as he was before the initial injection. CAROL for the neck for this patient - his total score is = 70. Therefore the patient is totally disabled because of his neck condition. The entire score of the Pain and Disability questioner is uploaded in the chart. He recently went for 8 sessions of PT and continued home exercise program. Unfortunately that was not effective for his pain control. He has tried NSAIDs and muscle relaxants for his neck pain. That was not helpful at all. He reports his pain 6 to 7/10. He reports that pain can be more severe and sometimes go to 8/10 to 9/10. I decided to offer this patient sprint PNS for his cervical spine. I will do it 2 weeks apart 1 procedure approximately at C5 possibly C6 possibly C4 location. He also was investigated at [facility] for the pain in the left shoulder. He reports that he had left shoulder x-ray. He stated that he can not make this x-ray available for us. He will sign medical information release note and the reports will be obtained by this office. Prior: complains on cervicalgia.? He reports 10 years of suffering from this pain. He is self mobile.? He reports that pain is worse with sitting and standing up and is aggravated turning of the head.?? He never had physical therapy for his pain in the neck.? He had MRI done results of which are dictated as below.? His past medical history is significant for hypertension and coronary artery disease.? He had stents done in the past and he is on Brilinta.? The Brilinta needs to be stopped before the procedure.? The matter of fact he is going for general surgery unrelated to his cervical pain and his Brilinta will be stopped [facility] Medical History Bleeding hemorrhoids Blind left eye Coronary disease DDD (degenerative disc disease), cervical Elevated cholesterol Hx of kidney disease Hypertension Prolapsed hemorrhoids Surgical History H/O tooth extraction History of eye surgery Hx of cardiac catheterization Hx of colonoscopy Family History Maternal Aunt Breast cancer Sister Cancer Brother Prostate cancer Sister Cancer Social History Household Members Other:: daughter Are you a primary administrator health care facility to a significant other at home: No Do you presently have visiting nurse or other home services: No Alcohol intake: former Patient Tobacco Use Status: Former Tobacco user Tobacco use type: Cigarette Review of Systems Const All systems reviewed & are unremarkable except as noted in HPI and below ENT Reports Normal hearing present Neuro Reports Normal hearing present, Denies Abnormal speech present, Denies confusion and Denies Sensory deficit (Neuro) Psych Denies confusion Physical Exam Vital Signs: Last Vital Signs Pulse 69 11/24/23 14:14 Resp 14 11/24/23 14:14 BP 164/86 H 11/24/23 14:14 Pulse Ox 98 11/24/23 14:14 Oxygen Delivery Method Room Air 11/24/23 14:14 BMI result Body Mass Index 25.7 Const General: No confusion Orientation/consciousness: No confusion Eyes General: appearance normal, both eyes and all related structures Pupils: Equal, round and reactive pupils present EOM: EOMs intact bilaterally Neck Other: Patient reports most of the pain on the neck with lateral rotation of the head. Flexing forward and flexing backwards does not aggravate his pain. He has significant pain increase with Valsalva maneuver. Axial compression and axial extension do not change his pain. Lhermitte is negative. Spurling is equivocal bilaterally. Neck: Yes full ROM Chest Chest palpation & inspection: normal inspection of the chest Resp Effort & Inspection: normal respiratory effort, able to speak in complete sentences, normal respiratory pattern, no audible wheezes and no cough Cardio Jugular venous distension: no JVD GI Inspection: Yes normal to inspection Neuro General: No confusion Cranial nerves: Yes CN's II-XII intact bilaterally, Yes Equal, round and reactive pupils present, Yes Normal hearing present and Yes Ability to bilaterally elevate shoulders present Speech: No Abnormal speech present Gait exam (Neuro): Normal gait present Motor exam (neuro): 5/5 motor strength present throughout Sensory Exam: No Sensory deficit (Neuro) Results Reviewed Results Reviewed: X-ray 07/31/2018. Degenerative disc changes C5-C6 and C5-C6 disc level. There is no visible acute fracture or dislocation seen. There is moderate left C4-C5 and C5-C6 facet joint arthropathy. MRI 02/07/2019: Multilevel cervical spondylosis multifactorial degenerative changes results moderate left C4-C5 severe left C5-C4 and moderate left C5-C6 foraminal stenosis. No severe central canal stenosis within the cervical spine. Advanced left hypertrophic facet arthropathy at C2-C3, C3-C4, C4-C5, and C5-C6. Assessment & Plan Assessment & Plan (1) Spondylosis of cervical spine without myelopathy: Code(s): M47.812 - Spondylosis without myelopathy or radiculopathy, cervical region Category: Medical (2) Chronic pain syndrome: Code(s): G89.4 - Chronic pain syndrome Category: Medical Plan Very good results of bilateral therapeutic C4-C5 C6 medial branch block (01/26/2022) to alleviate pain in the neck. 80 to 100 % pain improvement. Pain relieve lasted 4-5 moths and after that the pain gradually returned. His CAROL =70 he is totally disabled. We will request the insurance to approve the procedure. He recently completed physical therapy. Had 8 sessions and continued home exercise program after that. Unfortunately it was not helpful for his pain. He tried NSAIDs and muscle relaxants for his pain. Those were not effective. MRI demonstrates spondylosis of the cervical spine. I offered him sprint PNS at C5 level possibly C4 possibly C6.. I will schedule it 2 weeks apart. He also complains on pain in the left shoulder with crepitus sensation in the left shoulder. He had x-ray with [facility]. We will obtain the report of the x-ray and after that I will evaluate and see the patient again. Patient Instructions: I here by testify that I spent 32 minutes in conversation with this patient as well as planning his care and organizing this note. Coding Level of Care Code Est Pt Level 4 (30121) Diagnoses Spondylosis of cervical spine without myelopathy M47.812 Chronic pain syndrome G89.4
[2023-11-24 14:14] VITALS: BP 164/86; PULSE 69; RESP 14; O2SAT 98; BMI 25.7
== END 2023-11-24 14:33 | disposition home or self-care (01) ==
PROVIDERS: PCP Internal Medicine; Visit Provider Anesthesiology
DX: M47.812 Spondylosis without myelopathy or radiculopathy, cervical region (principal); G89.4 Chronic pain syndrome
CPT/HCPCS: 99214

== ENCOUNTER → 2023-11-24 14:00 | Outpatient (BNVA) | payer MEDICARE, MEDICAID, SELFPAY | PROVIDERS: PCP Internal Medicine; Visit Provider Anesthesiology | DX: M47.812 Spondylosis without myelopathy or radiculopathy, cervical region (principal); G89.4 Chronic pain syndrome | CPT/HCPCS: 99212 ==

== ENCOUNTER 2023-12-08 14:04 | Outpatient (AMB) | payer MEDICARE, MEDICAID, SELFPAY ==
[2023-12-08 14:10] VITALS: BP 162/82; PULSE 73; RESP 73; O2SAT 99; BMI 25.7
--- NOTE | 2023-12-08 14:10 | MHC.OFFVIS ---
Vital Signs 12/08/23 14:10 Height 5 ft 7 in Weight 164 lb 6 oz BMI 25.7 BP 162/82 H Blood Pressure Location Lt brachial Position Sitting Respiration 73 H Pulse 73 Pulse Source Pulse Oximeter Pulse Oximetry (%) 99 Oxygen Delivery Method Room Air Intake Visit Reasons: 2 Weeks F/U Intake Note: Patient comes in for 2 weeks follow up. Reports pain 8/10. Allergies No Known Allergies [No Known Allergies*] Allergy (Verified 12/08/23 14:11) HPI Comments Details: Mr. Rivas is back in my office after we received report from [facility] about his left shoulder x-ray. The x-ray does not demonstrate any pathology in the acromioclavicular or glenohumeral joint on the left. The only thing which they found is minimal spurring in the projection of the greater tuberosity of the left humeral bone. Patient reports pain in the projection of the center of the deltoid muscle on the left. I recommended him to obtain Aspercreme with lidocaine and apply this to the area of the pain. I also recommended him to apply local heat in the projection of the area. I also would like to request him to go for physical therapy for this problem. Maybe they can do some local modalities such as paraffin application or ultrasound local heat. Range of motion exercise also will be helpful for his condition. We are waiting for the date of the procedure for sprint PNS for his cervical spine. In the past he received bilateral therapeutic C4-C5 C6 medial branch block which was performed on 01/26/2022. originally he reported 80 to 100% pain improvement as the result of the injection.The initial pain relieve after the procedure in January of 2022 lasted according to the patient 4-5 months. He reported that his pain went back and now he is suffering again as much as he was before the initial injection. CAROL for the neck for this patient - his total score is = 70. Therefore the patient is totally disabled because of his neck condition. The entire score of the Pain and Disability questioner is uploaded in the chart. He recently went for 8 sessions of PT and continued home exercise program. Unfortunately that was not effective for his pain control. He has tried NSAIDs and muscle relaxants for his neck pain. That was not helpful at all. He reports his pain 6 to 7/10. He reports that pain can be more severe and sometimes go to 8/10 to 9/10. I decided to offer this patient sprint PNS for his cervical spine. I will do it 2 weeks apart 1 procedure approximately at C5 possibly C6 possibly C4 location. He also was investigated at [facility] for the pain in the left shoulder. He reports that he had left shoulder x-ray. He stated that he can not make this x-ray available for us. He will sign medical information release note and the reports will be obtained by this office. Prior: complains on cervicalgia.? He reports 10 years of suffering from this pain. He is self mobile.? He reports that pain is worse with sitting and standing up and is aggravated turning of the head.?? He never had physical therapy for his pain in the neck.? He had MRI done results of which are dictated as below.? His past medical history is significant for hypertension and coronary artery disease.? He had stents done in the past and he is on Brilinta.? The Brilinta needs to be stopped before the procedure.? The matter of fact he is going for general surgery unrelated to his cervical pain and his Brilinta will be stopped [facility] Medical History Bleeding hemorrhoids Blind left eye Coronary disease DDD (degenerative disc disease), cervical Elevated cholesterol Hx of kidney disease Hypertension Prolapsed hemorrhoids Surgical History H/O tooth extraction History of eye surgery Hx of cardiac catheterization Hx of colonoscopy Family History Maternal Aunt Breast cancer Sister Cancer Brother Prostate cancer Sister Cancer Social History Household Members Other:: daughter Are you a primary medicare interviewer to a significant other at home: No Do you presently have visiting nurse or other home services: No Alcohol intake: former Patient Tobacco Use Status: Former Tobacco user Tobacco use type: Cigarette Review of Systems Const All systems reviewed & are unremarkable except as noted in HPI and below ENT Reports Normal hearing present Neuro Reports Normal hearing present, Denies Abnormal speech present, Denies confusion and Denies Sensory deficit (Neuro) Psych Denies confusion Physical Exam Vital Signs: Last Vital Signs Pulse 73 12/08/23 14:10 Resp 73 H 12/08/23 14:10 BP 162/82 H 12/08/23 14:10 Pulse Ox 99 12/08/23 14:10 Oxygen Delivery Method Room Air 12/08/23 14:10 BMI result Body Mass Index 25.7 Const General: No confusion Orientation/consciousness: No confusion Eyes General: appearance normal, both eyes and all related structures Pupils: Equal, round and reactive pupils present EOM: EOMs intact bilaterally Neck Other: Patient reports most of the pain on the neck with lateral rotation of the head. Flexing forward and flexing backwards does not aggravate his pain. He has significant pain increase with Valsalva maneuver. Axial compression and axial extension do not change his pain. Lhermitte is negative. Spurling is equivocal bilaterally. Neck: Yes full ROM Chest Chest palpation & inspection: normal inspection of the chest Resp Effort & Inspection: normal respiratory effort, able to speak in complete sentences, normal respiratory pattern, no audible wheezes and no cough Cardio Jugular venous distension: no JVD GI Inspection: Yes normal to inspection Neuro General: No confusion Cranial nerves: Yes CN's II-XII intact bilaterally, Yes Equal, round and reactive pupils present, Yes Normal hearing present and Yes Ability to bilaterally elevate shoulders present Speech: No Abnormal speech present Gait exam (Neuro): Normal gait present Motor exam (neuro): 5/5 motor strength present throughout Sensory Exam: No Sensory deficit (Neuro) Assessment & Plan Assessment & Plan (1) Rotator cuff dysfunction: Code(s): M67.919 - Unspecified disorder of synovium and tendon, unspecified shoulder Category: Medical (2) Left shoulder pain: Code(s): M25.512 - Pain in left shoulder Category: Medical Plan We are waiting for date to treat his cervicalgia with sprint PNS. Meanwhile I want to send him to physical therapy to treat his pain in the left shoulder. He has greater tuberosity spurring on the x-ray most likely result of previous strain on rotator cuff muscles. Application of the local heat such as paraffin in the physical therapy office and local heat devices at home would be helpful for this patient. Deep heat ultrasound would be also helpful for this condition. Pwovv-et-vomini exercise can also be recommended, hand bicycle as an I aerobic exercise could be also performed. Orders: Orders PT Evaluation and Treatment Today M25.512 - Pain in left shoulder, M67.919 - Unspecified disorder of synovium and tendon, unspecified shoulder Patient Instructions: I here by testify that I spent 32 minutes in conversation with this patient as well as evaluating his prior records and diagnostic studies, planning his care, organizing this note. Coding Level of Care Code Est Pt Level 4 (32381) Diagnoses Rotator cuff dysfunction M67.919 Left shoulder pain M25.512
== END 2023-12-08 14:28 | disposition home or self-care (01) ==
PROVIDERS: PCP Internal Medicine; Visit Provider Anesthesiology
DX: M67.919 Unspecified disorder of synovium and tendon, unspecified shoulder (principal); M25.512 Pain in left shoulder
CPT/HCPCS: 99214

== ENCOUNTER → 2023-12-08 14:04 | Outpatient (BNVA) | payer MEDICARE, MEDICAID, SELFPAY | PROVIDERS: PCP Internal Medicine; Visit Provider Anesthesiology | DX: M25.512 Pain in left shoulder (principal); M67.912 Unspecified disorder of synovium and tendon, left shoulder | CPT/HCPCS: 99212 ==

== ENCOUNTER 2024-01-05 11:52 | Outpatient (RCR) | payer MEDICARE, MEDICAID, SELFPAY ==
--- NOTE | 2023-12-30 16:26 | MHC.PT.EP ---
[facility] [place] Office [place] Office [place] Office [address] Evelina Souza [address] [phone] F: [phone] F: [phone] F: [phone] F: [phone] Physical Therapy Plan of Care Date of Evaluation: 12/30/23 Date of Surgery: NA Diagnosis: L SHOULDER PAIN Assessment: Pt IS 73 YO M REFERRED TO PT FROM PAIN MANAGEMENT (DR [facility]OL[facility]) WITH L SHLDER PAIN. 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 OF NOTE, Pt ASO HAVING RX FOR NECK PAIN AT PAIN MANAGEMENT. PRESENTS WITH LIMITED L SHLDER ROM AND L UE STRENGTH. XRAY +SPURRING AT GREATER TUBEROSITY. SHOULD BENEFIT FROM PT TO HELP WITH L SHLDER MM TIGHTNESS, LIMITED ROM AND STRENGTH OF NOTE L TRICEP SLIGHTLY WEAK Frequency and Duration: The patient will be seen 2X/WK X 6 WKS Short Term Goals: 1. INCREASED POSTURE AWARENESS AND AWARENESS SHLDER CARE 2. LESS PARESTHESIA REPORTED Residential Goals: 1. I HEP WITH DC EX PLAN 2. INCREASED L SHLDER ROM 10-20 DEGREES FOR SHLDER FLEX AND ABDUCTION 3. INCREASED L SHLDER STRENGTH 1/2-1 MM GRADE FOR SHLDR FLEX, ABD, ER, L ELBOW EXT 5/5 Treatment Plan: Modalities to reduce pain, spasms and effusion. Manual therapy to restore motion and function. Therapeutic exercise to improve strength and flexibility. Neuromuscular re-education for posture and balance. Therapeutic activities to return to functional activities of daily living. Electronically signed by: SUNITA RESENDEZ PT Please sign and return to therapist. Thank you for your referral.
--- NOTE | 2024-01-13 10:50 | MHC.PT.DC ---
[facility] [place] Office [place] Office [place] Office [address] Evelina Souza [address] [phone] F: [phone] F: [phone] F: [phone] F: [phone] Physical Therapy Discharge Report Diagnosis: L SHOULDER PAIN Date of Surgery: NA Date of Evaluation: 12/30/23 Date of Discharge: 01/13/24 Treatments to Date: 3 Cancellations to Date: No Shows to Date: Discharge Status: Patient Elected to Stop Discharge Summary: Pt HAD INIT EVAL AND 2 VISITS (REPORTS RELIEF OF SHLDER PAIN WITH KT). Pt HAD SPRINT PNS C4 ON L PROCEDURE ON 01/10/24. CALLED TO DC SELF. REPORTS WILL GET A NEW ORDER IF NEEDED Electronically signed by: SUNITA RESENDEZ PT Please sign and return to therapist. Thank you for your referral.
== END 2024-01-13 10:57 | disposition home or self-care (01) ==
LOC: HO.PT 11:52
PROVIDERS: PCP Internal Medicine; Visit Provider Anesthesiology
DX: M67.912 Unspecified disorder of synovium and tendon, left shoulder (principal)
CPT/HCPCS: 97110; 97161; 97535

== ENCOUNTER 2024-01-10 06:06 | Outpatient (REF) | payer MEDICARE, MEDICAID, SELFPAY | END 2024-01-10 06:07 | disposition home or self-care (01) | LOC: CF 06:06 | PROVIDERS: Visit Provider Anesthesiology | DX: M47.812 Spondylosis without myelopathy or radiculopathy, cervical region (principal) | CPT/HCPCS: 64555; J2003 ==

== ENCOUNTER 2024-01-10 08:10 | Outpatient (AMB) | payer MEDICARE, MEDICAID, SELFPAY ==
[2024-01-10 08:27] VITALS: BP 131/69; PULSE 84; RESP 16; O2SAT 99
--- NOTE | 2024-01-10 09:01 | A.OFFVIS_ITS ---
Vital Signs 01/10/24 08:27 01/10/24 09:21 BP 131/69 120/76 Blood Pressure Location Lt brachial Lt brachial Position Sitting Sitting Respiration 16 16 Pulse 84 74 Pulse Source Pulse Oximeter Pulse Oximeter Pulse Oximetry (%) 99 98 Oxygen Delivery Method Room Air Room Air Comment Pre-op Post-op Intake Visit Reasons: LEFT C5 (POSS C4, POSS C6) SPRINT PNS TRIAL Allergies No Known Allergies [No Known Allergies*] Allergy (Verified 01/10/24 09:22) Medication List - Last Reconciled 01/10/24 by Carri Yusuf amlodipine 10 mg PO DAILY aspirin 1 tab PO DAILY atorvastatin 80 mg PO DAILY bisacodyl (Dulcolax (bisacodyl)) 10 mg (2 x 5 mg) PO ONCE 1 day brimonidine 0.2% 1 drp ophthalmic (eye) BID gabapentin 300 mg PO TID lisinopril 40 mg PO DAILY multivitamin 1 tab PO QAM nitroglycerin 0.4 mg sublingual .Q5M PRN omeprazole 20 mg PO DAILY PRN ondansetron HCl 4 mg PO Q6H PRN polyethylene glycol 3350 (Miralax) 238 grams PO ONCE tamsulosin 0.4 mg PO DAILY tramadol 50 mg PO TID PRN PFSH Medical History Bleeding hemorrhoids Blind left eye Coronary disease DDD (degenerative disc disease), cervical Elevated cholesterol Hx of kidney disease Hypertension Prolapsed hemorrhoids Surgical History H/O tooth extraction History of eye surgery Hx of cardiac catheterization Hx of colonoscopy Family History Maternal Aunt Breast cancer Sister Cancer Brother Prostate cancer Sister Cancer Social History Household Members Other:: daughter Are you a primary patient care technician to a significant other at home: No Do you presently have visiting nurse or other home services: No Alcohol intake: former Patient Tobacco Use Status: Former Tobacco user Tobacco use type: Cigarette Physical Exam Vital Signs: Last Vital Signs Pulse 74 01/10/24 09:21 Resp 16 01/10/24 09:21 BP 120/76 01/10/24 09:21 Pulse Ox 98 01/10/24 09:21 Oxygen Delivery Method Room Air 01/10/24 09:21 Assessment & Plan Assessment & Plan (1) Spondylosis of cervical spine without myelopathy: Code(s): M47.812 - Spondylosis without myelopathy or radiculopathy, cervical region Category: Medical Plan Sprint PNS C4 on the left Percutaneous implantation of peripheral nerve stimulation Sprint system. After the risks, benefits and alternatives were discussed with the patient and informed consent was obtained, patient was placed in the prone position and padded to foster comfort. Time out was performed delineating correct site and side of the procedure , name and of the patient, patient participated in time out procedure. C-arm was brought over the operating field and clear picture of the C5 lamina on the left was delineated on the screen. The upper central portion of the lamina was chosen as a target of the needle tip insertion . After identifying and marking the intended target, the skin around the planned entry point and the subcutaneous tissues were injected with local anesthetic forming skin wheal.. A percutaneous sleeve and stimulating probe lead introduction system were assembled, inserted and advanced through the skin wheal to the point of interest under C-arm view in tunnel vision fashion, the introducer needle was delivered to a location in proximity to the nerve. Multiple stimulation parameters were used to deliver stimulation to the nerve in concert with stimulating at multiple positions around the nerve. Unfortunately patient reported very poor stimulation in decision was made to change the target for C4 lamina on the left. The upper central portion of the lamina was chosen as the target of needle-tip insertion. After identifying Marcaine intended target the needle was redirected to were the C4 lamina on the left. nerve target acquisition was confirmed noting generation of in the corresponding to the nerve being stimulated. The patient reported good stimulation. Various electrical parameter combinations were tested, and the lead location was adjusted (physically relocated) until the patient indicated overlapping the distribution of the patient?s typical region of pain. The stimulating probe was removed from the introducer and a percutaneo us lead was guided through the needle and delivered to a location in similar proximity to the nerve. Final location was verified with electrical stimulation. The introducer needle was removed, and the exposed end of the percutaneous lead was attached to an external stimulator unit. At the end of the case various electrical parameter combinations were again tested until the patient indicated paresthesia or muscle tension overlapping the distribution of the patient?s typical region of pain. After confirming that lead impedance was in the normal range, the external unit was detached, the needle was removed, and the lead was anchored at the skin. The lead was threaded into the connector block and electrical continuity and desired patient response was confirmed. The connector block was attached to the external stimulator unit. The site was covered with a sterile occlusive dressing and a image was taken to document final placement Orders: Orders FL guidance in treatment room Today M47.812 - Spondylosis without myelopathy or radiculopathy, cervical region Coding Level of Care Code Procedure Only Diagnoses Spondylosis of cervical spine without myelopathy M47.812
[2024-01-10 09:21] VITALS: BP 120/76; PULSE 74; RESP 16; O2SAT 98
== END 2024-01-10 09:23 | disposition home or self-care (01) ==
LOC: HO.PMCPRC 08:10
PROVIDERS: PCP Internal Medicine; Visit Provider Anesthesiology
DX: M47.812 Spondylosis without myelopathy or radiculopathy, cervical region (principal)
CPT/HCPCS: 64555

== ENCOUNTER 2024-01-18 08:16 | Outpatient (AMB) | payer MEDICARE, MEDICAID, SELFPAY ==
[2024-01-18 08:32] VITALS: BP 142/71; PULSE 90; O2SAT 99; BMI 24.3
--- NOTE | 2024-01-18 08:32 | A.OFFVIS_ITS ---
Vital Signs 01/18/24 08:32 Height 5 ft 7 in Weight 155 lb BMI 24.3 BP 142/71 H Blood Pressure Location Lt brachial Position Sitting Pulse 90 Pulse Source Pulse Oximeter Pulse Oximetry (%) 99 Oxygen Delivery Method Room Air Intake Visit Reasons: LEFT C5 SPRINT PNS TRIAL Allergies No Known Allergies [No Known Allergies*] Allergy (Verified 01/18/24 08:32) Medication List - Last Reconciled 01/18/24 by Carri Yusuf amlodipine 10 mg PO DAILY aspirin 1 tab PO DAILY atorvastatin 80 mg PO DAILY bisacodyl (Dulcolax (bisacodyl)) 10 mg (2 x 5 mg) PO ONCE 1 day brimonidine 0.2% 1 drp ophthalmic (eye) BID gabapentin 300 mg PO TID lisinopril 40 mg PO DAILY multivitamin 1 tab PO QAM nitroglycerin 0.4 mg sublingual .Q5M PRN omeprazole 20 mg PO DAILY PRN ondansetron HCl 4 mg PO Q6H PRN polyethylene glycol 3350 (Miralax) 238 grams PO ONCE tamsulosin 0.4 mg PO DAILY tramadol 50 mg PO TID PRN HPI Comments Details: Mr. Rivas is back in my office after insertion of the C4 sprint PNS on the left. He reports excellent pain relief from the device, he reports great mobility, good activities of daily living, excellen social interactions. Interestingly enough he also reports disappearance of the paresthesia sensation such as burning and pins and needles sensation in his neck. He came today for dressing change. There is no signs of redness or swelling in the site of the insertion of the electrode. We will schedule 6 or 7 nursing visits for him to change his dressings, sometimes his daughter might be helpful change his dressing but not all the time. In 7 weeks we will remove the device. we received report from [facility] about his left shoulder x-ray. The x-ray does not demonstrate any pathology in the acromioclavicular or glenohumeral joint on the left. The only thing which they found is minimal spurring in the projection of the greater tuberosity of the left humeral bone. Patient reports pain in the projection of the center of the deltoid muscle on the left. In the past he received bilateral therapeutic C4-C5 C6 medial branch block which was performed on 01/26/2022. originally he reported 80 to 100% pain improvement as the result of the injection.The initial pain relieve after the procedure in January of 2022 lasted according to the patient 4-5 months. He reported that his pain went back and now he is suffering again as much as he was before the initial injection. CAROL for the neck for this patient - his total score is = 70. Therefore the patient is totally disabled because of his neck condition. The entire score of the Pain and Disability questioner is uploaded in the chart. He recently went for 8 sessions of PT and continued home exercise program. Unfortunately that was not effective for his pain control. He has tried NSAIDs and muscle relaxants for his neck pain. That was not helpful at all. He reports his pain 6 to 7/10. He reports that pain can be more severe and sometimes go to 8/10 to 9/10. Prior: complains on cervicalgia.? He reports 10 years of suffering from this pain. He is self mobile.? He reports that pain is worse with sitting and standing up and is aggravated turning of the head.?? He never had physical therapy for his pain in the neck.? He had MRI done results of which are dictated as below.? His past medical history is significant for hypertension and coronary artery disease.? He had stents done in the past and he is on Brilinta.? The Brilinta needs to be stopped before the procedure.? The matter of fact he is going for general surgery unrelated to his cervical pain and his Brilinta will be stopped [facility] Medical History Bleeding hemorrhoids Blind left eye Coronary disease DDD (degenerative disc disease), cervical Elevated cholesterol Hx of kidney disease Hypertension Prolapsed hemorrhoids Surgical History H/O tooth extraction History of eye surgery Hx of cardiac catheterization Hx of colonoscopy Family History Maternal Aunt Breast cancer Sister Cancer Brother Prostate cancer Sister Cancer Social History Household Members Other:: daughter Are you a primary adult live in caregiver to a significant other at home: No Do you presently have visiting nurse or other home services: No Alcohol intake: former Patient Tobacco Use Status: Former Tobacco user Tobacco use type: Cigarette Review of Systems Const All systems reviewed & are unremarkable except as noted in HPI and below ENT Reports Normal hearing present Neuro Reports Normal hearing present, Denies Abnormal speech present, Denies confusion and Denies Sensory deficit (Neuro) Psych Denies confusion Physical Exam Vital Signs: Last Vital Signs Pulse 90 01/18/24 08:32 BP 142/71 H 01/18/24 08:32 Pulse Ox 99 01/18/24 08:32 Oxygen Delivery Method Room Air 01/18/24 08:32 BMI result Body Mass Index 24.3 Const General: No confusion Orientation/consciousness: No confusion Eyes General: appearance normal, both eyes and all related structures Pupils: Equal, round and reactive pupils present EOM: EOMs intact bilaterally Neck Other: Patient reports most of the pain on the neck with lateral rotation of the head. Flexing forward and flexing backwards does not aggravate his pain. He has significant pain increase with Valsalva maneuver. Axial compression and axial extension do not change his pain. Lhermitte is negative. Spurling is equivocal bilaterally. Neck: Yes full ROM Chest Chest palpation & inspection: normal inspection of the chest Resp Effort & Inspection: normal respiratory effort, able to speak in complete sentences, normal respiratory pattern, no audible wheezes and no cough Cardio Jugular venous distension: no JVD GI Inspection: Yes normal to inspection Neuro General: No confusion Cranial nerves: Yes CN's II-XII intact bilaterally, Yes Equal, round and reactive pupils present, Yes Normal hearing present and Yes Ability to bilaterally elevate shoulders present Speech: No Abnormal speech present Gait exam (Neuro): Normal gait present Motor exam (neuro): 5/5 motor strength present throughout Sensory Exam: No Sensory deficit (Neuro) Assessment & Plan Assessment & Plan (1) Spondylosis of cervical spine without myelopathy: Code(s): M47.812 - Spondylosis without myelopathy or radiculopathy, cervical region Category: Medical Plan Patient is doing very well after left C4 trial of sprint PNS initiation. He needs 7 dressing changes in the office to continue with the stimulation. From time to time his daughter will be able to help his dressing change but this is not a guarantee. He will be scheduled therefore for dressing changes here in the office for the device. The evaluation of the device effectiveness see as above. Coding Level of Care Code Est Pt Level 3 (15515) Diagnoses Spondylosis of cervical spine without myelopathy M47.812
== END 2024-01-18 08:45 | disposition home or self-care (01) ==
PROVIDERS: PCP Internal Medicine; Visit Provider Anesthesiology
DX: M47.812 Spondylosis without myelopathy or radiculopathy, cervical region (principal)
CPT/HCPCS: 99213

== ENCOUNTER → 2024-01-18 08:16 | Outpatient (BNVA) | payer MEDICARE, MEDICAID, SELFPAY | PROVIDERS: PCP Internal Medicine; Visit Provider Anesthesiology | DX: M47.812 Spondylosis without myelopathy or radiculopathy, cervical region (principal) | CPT/HCPCS: 99212 ==

== ENCOUNTER 2024-01-24 06:08 | Outpatient (REF) | payer MEDICARE, MEDICAID, SELFPAY ==
--- NOTE | ~2024-01-24 | FL_ITS ---
EXAMINATION: FLUORO GUIDANCE IN TREATMENT ROOM CLINICAL INFORMATION: Spondylosis without myelopathy or radiculopathy, cervical region. COMPARISON: None available. TECHNIQUE: Fluoroscopy supervised by: Dr. Holden Azar. Fluoroscopy time: 0.1 minutes. Cumulative Dose: 0.785 mGy. DAP: 0.32202 mGy-m2 (milligray-meter squared). Images: 2. FINDINGS: A needle and a wire are seen overlying the right lower cervical spine. A wire is also seen on the left at approximately the same level. FL/FL guidance in treatment room IMPRESSION: Fluoroscopy during procedure. Please see procedure report for additional information. Electronically signed by: Caleb Wilde MD 03/21/2024 01:23 PM CHARLES
== END 2024-01-24 06:09 | disposition home or self-care (01) ==
LOC: CF 06:08
PROVIDERS: Visit Provider Anesthesiology
DX: M47.812 Spondylosis without myelopathy or radiculopathy, cervical region (principal)
CPT/HCPCS: 64555; J2003

== ENCOUNTER 2024-01-24 08:16 | Outpatient (AMB) | payer MEDICARE, MEDICAID, SELFPAY ==
--- NOTE | 2024-01-24 08:20 | MHC.OFFVIS ---
Vital Signs 01/24/24 08:24 01/24/24 09:18 BP 124/73 135/71 Blood Pressure Location Lt brachial Lt brachial Position Sitting Sitting Pulse 90 77 Pulse Source Pulse Oximeter Pulse Oximeter Pulse Oximetry (%) 99 98 Oxygen Delivery Method Room Air Room Air Intake Visit Reasons: RIGHT C5 (POSS C4, POSS C6) SPRINT PNS TRIAL Allergies No Known Allergies [No Known Allergies*] Allergy (Verified 01/18/24 08:32) PFSH Medical History Bleeding hemorrhoids Blind left eye Coronary disease DDD (degenerative disc disease), cervical Elevated cholesterol Hx of kidney disease Hypertension Prolapsed hemorrhoids Surgical History H/O tooth extraction History of eye surgery Hx of cardiac catheterization Hx of colonoscopy Family History Maternal Aunt Breast cancer Sister Cancer Brother Prostate cancer Sister Cancer Social History Household Members Other:: daughter Are you a primary client care manager to a significant other at home: No Do you presently have visiting nurse or other home services: No Alcohol intake: former Patient Tobacco Use Status: Former Tobacco user Tobacco use type: Cigarette Physical Exam Vital Signs: Last Vital Signs Pulse 77 01/24/24 09:18 BP 135/71 01/24/24 09:18 Pulse Ox 98 01/24/24 09:18 Oxygen Delivery Method Room Air 01/24/24 09:18 Assessment & Plan Assessment & Plan (1) Spondylosis of cervical spine without myelopathy: Code(s): M47.812 - Spondylosis without myelopathy or radiculopathy, cervical region Category: Medical Plan Sprint PNS C4 on the right Percutaneous implantation of peripheral nerve stimulation Sprint system. After the risks, benefits and alternatives were discussed with the patient and informed consent was obtained, patient was placed in the prone position and padded to foster comfort. Time out was performed delineating correct site and side of the procedure , name and of the patient, patient participated in time out procedure. C-arm was brought over the operating field and clear picture of the C4 lamina on the right was delineated on the screen. The upper central portion of the lamina was chosen as a target of the needle tip insertion . After identifying and marking the intended target, the skin around the planned entry point and the subcutaneous tissues were injected with local anesthetic forming skin wheal.. A percutaneous sleeve and stimulating probe lead introduction system were assembled, inserted and advanced through the skin wheal to the point of interest under C-arm view in tunnel vision fashion, the introducer needle was delivered to a location in proximity to the nerve. Multiple stimulation parameters were used to deliver stimulation to the nerve in concert with stimulating at multiple positions around the nerve. The nerve target acquisition was confirmed noting generation of in the corresponding to the nerve being stimulated. The patient reported good stimulation. Various electrical parameter combinations were tested, and the lead location was adjusted (physically relocated) until the patient indicated overlapping the distribution of the patient?s typical region of pain. The stimulating probe was removed from the introducer and a percutaneous lead was guided through the needle and delivered to a location in similar proximity to the nerve. Final location was verified with electrical stimulation. The introducer needle was removed, and the exposed end of the percutaneous lead was attached to an external stimulator unit. At the end of the case various electrical parameter combinations were again tested until the patient indicated paresthesia or muscle tension overlapping the distribution of the patient?s typical region of pain. After confirming that lead impedance was in the normal range, the external unit was detached, the needle was removed, and the lead was anchored at the skin. The lead was threaded into the connector block and electrical continuity and desired patient response was confirmed. The connector block was attached to the external stimulator unit. The site was covered with a sterile occlusive dressing and a image was taken to document final placement. Orders: Orders FL guidance in treatment room Today M47.812 - Spondylosis without myelopathy or radiculopathy, cervical region Coding Level of Care Code Procedure Only Diagnoses Spondylosis of cervical spine without myelopathy M47.812
[2024-01-24 08:24] VITALS: BP 124/73; PULSE 90; O2SAT 99
[2024-01-24 09:18] VITALS: BP 135/71; PULSE 77; O2SAT 98
== END 2024-01-24 09:21 | disposition home or self-care (01) ==
LOC: HO.PMCPRC 08:16
PROVIDERS: PCP Internal Medicine; Visit Provider Anesthesiology
DX: M47.812 Spondylosis without myelopathy or radiculopathy, cervical region (principal)
CPT/HCPCS: 64555

== ENCOUNTER 2024-02-01 08:45 | Outpatient (AMB) | payer MEDICARE, MEDICAID, SELFPAY ==
--- NOTE | 2024-02-01 08:59 | MHC.OFFVIS ---
Vital Signs 02/01/24 09:07 Height 5 ft 7 in Weight 160 lb BMI 25.1 BP 145/73 H Blood Pressure Location Rt brachial Position Sitting Pulse 87 Pulse Source Pulse Oximeter Pulse Oximetry (%) 98 Oxygen Delivery Method Room Air Intake Visit Reasons: RIGHT C5 SPRINT PNS TRIAL/dressing change Intake Note: Pain today 04/02 Flanging Machine Operator Required: No Accompanied by: Self / Same As Patient Allergies No Known Allergies [No Known Allergies*] Allergy (Verified 02/01/24 09:09) HPI Comments Details: Mr. Rivas is back in my office after insertion of the C4 sprint PNS on the left. He reports excellent pain relief from the device, he continues to reports great mobility, good activities of daily living, excellen social interactions. He does not feel the stimulation on the left and he will contact sprint PNS representatives find out what is going on there. On dressing change today the device appears to be appropriate and there is no extra length of the stimulating wires protruding from the skin which would indicate dislodgement of the stimulating device. He continues to visit us for dressing changes and report of his condition. If he would require replacement of the left electrode, if it is recommended by sprint PNS I will perform this procedure. Interestingly enough he also reports disappearance of the paresthesia sensation such as burning and pins and needles sensation in his neck. we received report from [facility] about his left shoulder x-ray. The x-ray does not demonstrate any pathology in the acromioclavicular or glenohumeral joint on the left. The only thing which they found is minimal spurring in the projection of the greater tuberosity of the left humeral bone. Patient reports pain in the projection of the center of the deltoid muscle on the left. In the future we can perform ultrasound-guided injection into the greater tuberosity but not earlier than before removal of the sprint PNS. In the past he received bilateral therapeutic C4-C5 C6 medial branch block which was performed on 01/26/2022. originally he reported 80 to 100% pain improvement as the result of the injection.The initial pain relieve after the procedure in January of 2022 lasted according to the patient 4-5 months. He reported that his pain went back and now he is suffering again as much as he was before the initial injection. CAROL for the neck for this patient - his total score is = 70. Therefore the patient is totally disabled because of his neck condition. The entire score of the Pain and Disability questioner is uploaded in the chart. He recently went for 8 sessions of PT and continued home exercise program. Unfortunately that was not effective for his pain control. He has tried NSAIDs and muscle relaxants for his neck pain. That was not helpful at all. He reports his pain 6 to 7/10. He reports that pain can be more severe and sometimes go to 8/10 to 9/10. Prior: complains on cervicalgia.? He reports 10 years of suffering from this pain. He is self mobile.? He reports that pain is worse with sitting and standing up and is aggravated turning of the head.?? He never had physical therapy for his pain in the neck.? He had MRI done results of which are dictated as below.? His past medical history is significant for hypertension and coronary artery disease.? He had stents done in the past and he is on Brilinta.? The Brilinta needs to be stopped before the procedure.? The matter of fact he is going for general surgery unrelated to his cervical pain and his Brilinta will be stopped [facility] Medical History Bleeding hemorrhoids Blind left eye Coronary disease DDD (degenerative disc disease), cervical Elevated cholesterol Hx of kidney disease Hypertension Prolapsed hemorrhoids Surgical History H/O tooth extraction History of eye surgery Hx of cardiac catheterization Hx of colonoscopy Family History Maternal Aunt Breast cancer Sister Cancer Brother Prostate cancer Sister Cancer Social History Household Members Other:: daughter Are you a primary multi care technician to a significant other at home: No Do you presently have visiting nurse or other home services: No Alcohol intake: former Patient Tobacco Use Status: Former Tobacco user Tobacco use type: Cigarette Review of Systems Const All systems reviewed & are unremarkable except as noted in HPI and below ENT Reports Normal hearing present Neuro Reports Normal hearing present, Denies Abnormal speech present, Denies confusion and Denies Sensory deficit (Neuro) Psych Denies confusion Physical Exam Vital Signs: Last Vital Signs Pulse 87 02/01/24 09:07 BP 145/73 H 02/01/24 09:07 Pulse Ox 98 02/01/24 09:07 Oxygen Delivery Method Room Air 02/01/24 09:07 BMI result Body Mass Index 25.1 Const General: No confusion Orientation/consciousness: No confusion Eyes General: appearance normal, both eyes and all related structures Pupils: Equal, round and reactive pupils present EOM: EOMs intact bilaterally Neck Other: Patient reports most of the pain on the neck with lateral rotation of the head. Flexing forward and flexing backwards does not aggravate his pain. He has significant pain increase with Valsalva maneuver. Axial compression and axial extension do not change his pain. Lhermitte is negative. Spurling is equivocal bilaterally. Neck: Yes full ROM Chest Chest palpation & inspection: normal inspection of the chest Resp Effort & Inspection: normal respiratory effort, able to speak in complete sentences, normal respiratory pattern, no audible wheezes and no cough Cardio Jugular venous distension: no JVD GI Inspection: Yes normal to inspection Neuro General: No confusion Cranial nerves: Yes CN's II-XII intact bilaterally, Yes Equal, round and reactive pupils present, Yes Normal hearing present and Yes Ability to bilaterally elevate shoulders present Speech: No Abnormal speech present Gait exam (Neuro): Normal gait present Motor exam (neuro): 5/5 motor strength present throughout Sensory Exam: No Sensory deficit (Neuro) Assessment & Plan Assessment & Plan (1) Spondylosis of cervical spine without myelopathy: Code(s): M47.812 - Spondylosis without myelopathy or radiculopathy, cervical region Category: Medical Plan Patient continues to do well after the full system insertion of the bilateral cervical sprint PNS devices. He will continue to have dressing changes here in the office. If his left lift is damaged and it would require to be replaced I will schedule him for the procedure but not before the sprint PNS patient financial representative will request the change. Coding Level of Care Code Est Pt Level 3 (47190) Diagnoses Spondylosis of cervical spine without myelopathy M47.812
[2024-02-01 09:07] VITALS: BP 145/73; PULSE 87; O2SAT 98; BMI 25.1
== END 2024-02-01 09:22 | disposition home or self-care (01) ==
PROVIDERS: PCP Internal Medicine; Visit Provider Anesthesiology
DX: M47.812 Spondylosis without myelopathy or radiculopathy, cervical region (principal)
CPT/HCPCS: 99024

== ENCOUNTER → 2024-02-01 08:45 | Outpatient (BNVA) | payer MEDICARE, MEDICAID, SELFPAY | PROVIDERS: PCP Internal Medicine; Visit Provider Anesthesiology | DX: M47.812 Spondylosis without myelopathy or radiculopathy, cervical region (principal); Z96.82 Presence of neurostimulator | CPT/HCPCS: 99212 ==

== ENCOUNTER → 2024-02-20 11:10 | Outpatient (BNVA) | payer MEDICARE, MEDICAID, SELFPAY | PROVIDERS: PCP Internal Medicine; Visit Provider Anesthesiology ==

== ENCOUNTER → 2024-03-05 09:51 | Outpatient (BNVA) | payer MEDICARE, MEDICAID, SELFPAY | PROVIDERS: PCP Internal Medicine; Visit Provider Anesthesiology ==

== ENCOUNTER → 2024-03-12 09:48 | Outpatient (BNVA) | payer MEDICARE, MEDICAID, SELFPAY | PROVIDERS: PCP Internal Medicine; Visit Provider Anesthesiology ==

== ENCOUNTER 2024-03-19 08:15 | Outpatient (AMB) | payer MEDICARE, MEDICAID, SELFPAY ==
--- NOTE | 2024-03-19 08:18 | MHC.OFFVIS ---
Vital Signs 03/19/24 08:19 Height 5 ft 7 in Weight 169 lb BMI 26.5 BP 153/78 H Blood Pressure Location Lt brachial Position Sitting Respiration 16 Pulse 86 Pulse Source Pulse Oximeter Pulse Oximetry (%) 98 Oxygen Delivery Method Room Air Intake Visit Reasons: RIGHT C5 SPRINT REMOVAL Firewall Engineer Required: No Allergies No Known Allergies [No Known Allergies*] Allergy (Verified 03/19/24 08:20) Medication List - Last Reconciled 03/19/24 by Loren Concepcion LPN amlodipine 10 mg PO DAILY aspirin 1 tab PO DAILY atorvastatin 80 mg PO DAILY bisacodyl (Dulcolax (bisacodyl)) 10 mg (2 x 5 mg) PO ONCE 1 day brimonidine 0.2% 1 drp ophthalmic (eye) BID gabapentin 300 mg PO TID lisinopril 40 mg PO DAILY multivitamin 1 tab PO QAM nitroglycerin 0.4 mg sublingual .Q5M PRN omeprazole 20 mg PO DAILY PRN ondansetron HCl 4 mg PO Q6H PRN polyethylene glycol 3350 (Miralax) 238 grams PO ONCE tamsulosin 0.4 mg PO DAILY tramadol 50 mg PO TID PRN HPI Comments Details: Mr. Rivas is back in my office after insertion of the C4 sprint PNS on the right He reports excellent pain relief from the device, he continues to reports great mobility, good activities of daily living, excellen social interactions. The wire was removed today sterile Band-Aid was applied. The patient complains on left-sided pins and needles sensation which is minor at this time. Recommended him if this sensation and pain on the left we will increase to give us a call and schedule an appointment we will try to preauthorize him for left-sided C4 sprint PNS. PNS. In the past he received bilateral therapeutic C4-C5 C6 medial branch block which was performed on 01/26/2022. originally he reported 80 to 100% pain improvement as the result of the injection.The initial pain relieve after the procedure in January of 2022 lasted according to the patient 4-5 months. He reported that his pain went back and now he is suffering again as much as he was before the initial injection. CAROL for the neck for this patient - his total score is = 70. Therefore the patient is totally disabled because of his neck condition. The entire score of the Pain and Disability questioner is uploaded in the chart. He recently went for 8 sessions of PT and continued home exercise program. Unfortunately that was not effective for his pain control. He has tried NSAIDs and muscle relaxants for his neck pain. That was not helpful at all. He reports his pain 6 to 7/10. He reports that pain can be more severe and sometimes go to 8/10 to 9/10. Prior: complains on cervicalgia.? He reports 10 years of suffering from this pain. He is self mobile.? He reports that pain is worse with sitting and standing up and is aggravated turning of the head.?? He never had physical therapy for his pain in the neck.? He had MRI done results of which are dictated as below.? His past medical history is significant for hypertension and coronary artery disease.? He had stents done in the past and he is on Brilinta.? The Brilinta needs to be stopped before the procedure.? The matter of fact he is going for general surgery unrelated to his cervical pain and his Brilinta will be stopped [facility] Medical History Bleeding hemorrhoids Blind left eye Coronary disease DDD (degenerative disc disease), cervical Elevated cholesterol Hx of kidney disease Hypertension Prolapsed hemorrhoids Surgical History H/O tooth extraction History of eye surgery Hx of cardiac catheterization Hx of colonoscopy Family History Maternal Aunt Breast cancer Sister Cancer Brother Prostate cancer Sister Cancer Social History Household Members Other:: daughter Are you a primary school childcare attendant to a significant other at home: No Do you presently have visiting nurse or other home services: No Alcohol intake: former Patient Tobacco Use Status: Former Tobacco user Tobacco use type: Cigarette Review of Systems Const All systems reviewed & are unremarkable except as noted in HPI and below ENT Reports Normal hearing present Neuro Reports Normal hearing present, Denies Abnormal speech present, Denies confusion and Denies Sensory deficit (Neuro) Psych Denies confusion Physical Exam Vital Signs: Last Vital Signs Pulse 86 03/19/24 08:19 Resp 16 03/19/24 08:19 BP 153/78 H 03/19/24 08:19 Pulse Ox 98 03/19/24 08:19 Oxygen Delivery Method Room Air 03/19/24 08:19 BMI result Body Mass Index 26.5 Const General: No confusion Orientation/consciousness: No confusion Eyes General: appearance normal, both eyes and all related structures Pupils: Equal, round and reactive pupils present EOM: EOMs intact bilaterally Neck Other: Patient reports most of the pain on the neck with lateral rotation of the head. Flexing forward and flexing backwards does not aggravate his pain. He has significant pain increase with Valsalva maneuver. Axial compression and axial extension do not change his pain. Lhermitte is negative. Spurling is equivocal bilaterally. Neck: Yes full ROM Chest Chest palpation & inspection: normal inspection of the chest Resp Effort & Inspection: normal respiratory effort, able to speak in complete sentences, normal respiratory pattern, no audible wheezes and no cough Cardio Jugular venous distension: no JVD GI Inspection: Yes normal to inspection Neuro General: No confusion Cranial nerves: Yes CN's II-XII intact bilaterally, Yes Equal, round and reactive pupils present, Yes Normal hearing present and Yes Ability to bilaterally elevate shoulders present Speech: No Abnormal speech present Gait exam (Neuro): Normal gait present Motor exam (neuro): 5/5 motor strength present throughout Sensory Exam: No Sensory deficit (Neuro) Assessment & Plan Assessment & Plan (1) Spondylosis of cervical spine without myelopathy: Code(s): M47.812 - Spondylosis without myelopathy or radiculopathy, cervical region Category: Medical Plan Patient continues to do well . The right-sided lead was removed today. Till I have Band-Aid was applied. He complains on minor pins and needle sensation on the left side. I recommended him to give us a call and schedule an appointment if his pain will increase. Coding Level of Care Code Est Pt Level 3 (99238) Diagnoses Spondylosis of cervical spine without myelopathy M47.812
[2024-03-19 08:19] VITALS: BP 153/78; PULSE 86; RESP 16; O2SAT 98; BMI 26.5
--- OUTSIDE RECORDS SUMMARY | 2024-03-19 12:36 | XMS_ITS | Encounter Summary ---
Author Organization [employer] Address [address] [place] [address] Care Team Providers Care Pet Care Associate Name Role Phone Jennifer Powell MD Primary Care Provide r Reason for Visit * Reason Onset Date Comments Med Refill 02/01/2023 Encounter Details Date Type Department Care Team (Late st Contact Info) Description 02/01/[address] [facility] MEDICINE [address] [place], [place] [phone] Jennifer Powell MD [address] [place] [address] Cervical spondylosis (Primary Dx) Social History Tobacco Use Types Packs/Day Years Used Date Smoking Tobacco: Former Cigarettes Smokeless Tobacco: Never Alcohol Use Standard Drinks/Week Comments Never 0 (1 standard drink = 0.6 oz pur e alcohol) Depression Answer Date Recorded Patient Health Questionnaire-9 Score 0 07/02/2022 Housing Stability Answer Date Recorded What is your housing situation today? I have filomenaedwardo rodriguez 12/30/[address] you li ve. Do you have problems with any of the following? None of the above 12/30/2022 Food Insecurity Answer Date Recorded Within the past 12 months, y ou worried that your food would run out before you got money to buy more: Never True 12/30/2022 Within the past 12 months,th e food you bought just didn't last and you didn't have enough money to get more: Never True 10/2022 Transportation Answer Date Recorded In the past 12 months, has l ack of transportation kept you from medical appts, meetings, work or from getting things needed for daily living? No 12/30/2022 Utilities Answer Date Recorded In the past 12 months, has t he electric, gas, oil or water [employer] threatened to shut off services in your home? No 12/30/2022 Depression Answer Date Recorded Patient Health Questionnaire-2 Score 0 07/02/2022 Sex and Gender Information Value Date Recorded Sex Assigned at Male 12/21/2021 10:33 AM EDT Legal Sex Male 10:33 AM EDT Gender Identity Male 12/21/2021 10:33 AM EDT Sexual Orientation Straight 12/21/2021 10 :33 AM EDT documented as of this encounter Miscellaneous Notes * Telephone Encounter - Flipcarmen Monsivais Nicholas - 02/01/2023 12:12 PM EST Tc from pt daughter requesting med refill on Tramadol 50 Mg tablet. Please sent to [facility] - [place], [place] - [address] [place] [address] documented in this encounter Plan of Treatment Upcoming Encounters Date Type Department Care Team (Late st Contact Info) Description 05/25/2024 9:00 AM EDT Telemedicine [facility] MEDICINE [address] [place] [address] Sandra Heck, JODIE documented as of this encounter Visit Diagnoses Diagnosis Cervical spondylosis- Primary Cervical spondylosis without myelopathy documented in this encounter Additional Health Concerns Assessment Noted Time PHQ-9 Depression Total Score: 0 07/03/19 23 8:54 AM EDT documented as of this encounter Care Teams Pet Care Associate Relationship Specialty Start Date End Date Jennifer Powell MD [address] [place] [id number] PCP - General Family Medicine 02/11/20 documented as of this encounter
--- OUTSIDE RECORDS SUMMARY | 2024-03-19 12:36 | XMS_ITS | Encounter Summary ---
Author Organization [employer] Address [address] [place] [address] [address] [place] [address] Care Team Providers Care It Support Analyst Name Role Phone Jennifer Powell MD Primary Care Provide r Reason for Visit * Reason Comments Med Refill Encounter Details Date Type Department Care Team (Late st Contact Info) Description 2022 Refill [facility] PEDS [address] [place], [place] [phone] Jennifer Powell MD [address] [place], [place] [phone] Social History Tobacco Use Types Packs/Day Years Used Date Smoking Tobacco: Former Cigarettes Smokeless Tobacco: Never Alcohol Use Standard Drinks/Week Comments Never 0 (1 standard drink = 0.6 oz pur e alcohol) Depression Answer Date Recorded Patient Health Questionnaire-9 Score 0 07/02/2022 Depression Answer Date Recorded Patient Health Questionnaire-2 Score 0 07/02/2022 Sex and Gender Information Value Date Recorded Sex Assigned at Male 12/21/2021 10:33 AM EDT Legal Sex Male 10:33 AM EDT Gender Identity Male 12/21/2021 10:33 AM EDT Sexual Orientation Straight 12/21/2021 10 :33 AM EDT documented as of this encounter Plan of Treatment Upcoming Encounters Date Type Department Care Team (Late st Contact Info) Description 05/25/2024 9:00 AM EDT Telemedicine [facility] MEDICINE [address] [place], [place] [phone] Sandra Heck RN documented as of this encounter Visit Diagnoses Not on filedocumented in this encounter Additional Health Concerns Assessment Noted Time PHQ-9 Depression Total Score: 0 07/03/19 23 8:54 AM EDT documented as of this encounter Care Teams It Support Analyst Relationship Specialty Start Date End Date Jennifer Powell MD [address] [place] [id number] PCP - General Family Medicine 02/11/20 documented as of this encounter
--- OUTSIDE RECORDS SUMMARY | 2024-03-19 12:36 | XMS_ITS | Encounter Summary ---
Author Organization [employer] Address [address] [facility] 7t [place] [address] Care Team Providers Care Fisher Scallop Name Role Phone Jennifer Powell MD Primary Care Provide r Reason for Visit * Reason Onset Date Comments Med Refill 03/14/2024 Encounter Details Date Type Department Care Team ([facility] st Contact Info) Description 03/14/2024 Refill [facility] [address] [place], [place] [phone] Jennifer Powell MD [address] [place] [address] Cervical spondylosis Social History Tobacco Use Types Packs/Day Years [...] t he electric, gas, oil or water company threatened to shut off services in your [...] encounter Miscellaneous Notes * Telephone Encounter - Telma Franco LPN - 03/14/2024 10:03 AM EST PHOTO MANAGER checked on 03/14/24. Last seen 11/09/23. * Telephone Encounter - Brody Mays - 03/14/2024 9:37 AM EST TC from pt requesting medication refill. Medications needing refill : gabapentin (Neurontin) 300 MG capsule To be sent to: [facility] documented in this encounter Plan of Treatment Upcoming Encounters Date Type Department Care Team (Late st Contact Info) Description 05/25/2024 9:00 AM EDT Telemedicine [facility] [address] [place] [address] Sandra Heck, RN documented as of this encounter Visit Diagnoses Diagnosis Cervical spondylosis Cervical spondylosis without myelopathy documented in this encounter Additional Health Concerns Assessment Noted Time PHQ-9 Depression Total Score: 0 07/03/19 23 8:54 AM EDT documented as of this encounter Care Teams Fisher Scallop Relationship Specialty Start Date End Date Jennifer Powell MD [address] [place] [address] PCP - General Family Medicine 02/11/20 documented as of this encounter
--- OUTSIDE RECORDS SUMMARY | 2024-03-19 12:36 | XMS_ITS | Encounter Summary ---
Author Organization [employer] Address [address] [facility] 7t [place] [address] Care Team Providers Care Environmental Educator Name Role Phone Jennifer Powell MD Primary Care Provide r Encounter Details Date Type Department Care Team (Latest Contact Info) Description 03/02/2024 Travel Social History Tobacco Use Types Packs/Day Years Used Date Smoking Tobacco: Former Cigarettes Smokeless Tobacco: Never Alcohol Use Standard Drinks/Week Comments Never 0 (1 standard drink = 0.6 oz pur e alcohol) Depression Answer Date Recorded Patient Health Questionnaire-9 Score 0 07/02/2022 Housing Stability Answer Date Recorded What is your housing situation today? I have filomena rodriguez 12/30/[address] you [...] Info) Description 05/25/2024 9:00 AM EDT Telemedicine [facility] [address] [place] [address] Sandra Heck RN documented as of this encounter Visit Diagnoses Not on filedocumented in this encounter Additional Health Concerns Assessment Noted Time PHQ-9 Depression Total Score: 0 07/03/19 23 8:54 AM EDT documented as of this encounter Care Teams Environmental Educator Relationship Specialty Start Date End Date Jennifer Powell MD [address] [place] [address] PCP - General Family Medicine 02/11/20 documented as of this encounter
--- OUTSIDE RECORDS SUMMARY | 2024-03-19 12:36 | XMS_ITS | Encounter Summary ---
Author Organization [employer] Address [address] [facility] 7t [place] [address] Care Team Providers Care Evaluation Analyst Name Role Phone Jennifer Powell MD Primary Care Provide r Reason for Visit * Reason Comments Med Refill Encounter Details Date Type Department Care Team ([facility] st Contact Info) Description 02/19/2024 Refill [facility] [address] [place], [place] [phone] Jennifer Powell MD [address] [place], [place] [phone] Social History Tobacco Use Types Packs/Day Years [...] Info) Description 05/25/2024 9:00 AM EDT Telemedicine [facility] [address] [place] [address] Sandra Heck RN documented as of this encounter Visit Diagnoses Not on filedocumented in this encounter Additional Health Concerns Assessment Noted Time PHQ-9 Depression Total Score: 0 07/03/19 23 8:54 AM EDT documented as of this encounter Care Teams Evaluation Analyst Relationship Specialty Start Date End Date Jennifer Powell MD [address] [place] [address] PCP - General Family Medicine 02/11/20 documented as of this encounter
--- OUTSIDE RECORDS SUMMARY | 2024-03-19 12:36 | XMS_ITS | Encounter Summary ---
Author Organization [employer] Address [address] [facility] 7t [place] [address] Care Team Providers Care Diesel Service Technician Name Role Phone Jennifer Powell MD Primary Care Provide r Reason for Visit * Reason Onset Date Comments Recommend MEDICAL STAFF CREDENTIALING COORDINATOR Tele Tier 3 03/02/2024 Encounter Details Date Type Department Care Team ([facility] st Contact Info) Description 03/02/2024 Telephone [facility] [address] [place] [address] Sandra Heck, JODIE Recommend MEDICAL STAFF CREDENTIALING COORDINATOR Tele Tier 3 Social History Tobacco Use Types Packs/Day Years [...] encounter Miscellaneous Notes * Telephone Encounter - Sandra Heck RN - 03/02/2024 7:33 AM EST What MEDICAL STAFF CREDENTIALING COORDINATOR Tier would you like this patient to be? I recommend Tele Tier 3, please let me know if you agree or would rather patient be in another MEDICAL STAFF CREDENTIALING COORDINATOR Tier. Tier 1 = HIGH RISK, Monthly MEDICAL STAFF CREDENTIALING COORDINATOR visits Tier 2 = MODerate RISK, Q3 Month visits Tier 3 = LOW RISK = Q4-6 month visits documented in this encounter Plan of Treatment Upcoming Encounters Date Type Department Care Team (Late st Contact Info) Description 05/25/2024 9:00 AM EDT Telemedicine [facility] [address] [place] [phone] Sandra Heck, RN documented as of this encounter Visit Diagnoses Not on filedocumented in this encounter Additional Health Concerns Assessment Noted Time PHQ-9 Depression Total Score: 0 07/03/19 23 8:54 AM EDT documented as of this encounter Care Teams Diesel Service Technician Relationship Specialty Start Date End Date Jennifer Powell MD [address] [place] [address] PCP - General Family Medicine 02/11/20 documented as of this encounter
--- OUTSIDE RECORDS SUMMARY | 2024-03-19 12:36 | XMS_ITS | Encounter Summary ---
Author Organization [employer] Address [address] [facility] 7t [place] [address] Care Team Providers Care Vice President Financial Name Role Phone Jennifer Powell MD Primary Care Provide r Reason for Visit * Reason Comments Med Refill Encounter Details Date Type Department Care Team ([facility] st Contact Info) Description 03/04/2024 Refill [facility] [address] [place], [place] [phone] Jennifer Powell MD [address] [place], [place] [phone] Essential hypertension; Fatigue, unspecified type Social History Tobacco Use Types Packs/Day Years [...] Description 05/25/2024 9:00 AM EDT Telemedicine [facility] [address] [place] [address] Sandra Heck RN documented as of this encounter Visit Diagnoses Diagnosis Essential hypertension Unspecified essential hypertension Fatigue, unspecified type documented in this encounter Additional Health Concerns Assessment Noted Time PHQ-9 Depression Total Score: 0 07/03/19 23 8:54 AM EDT documented as of this encounter Care Teams Vice President Financial Relationship Specialty Start Date End Date Jennifer Powell MD [address] [place] [address] PCP - General Family Medicine 02/11/20 documented as of this encounter
--- OUTSIDE RECORDS SUMMARY | 2024-03-19 12:36 | XMS_ITS | Clinical Summary ---
Author Organization [facility] Address [address] [address] Care Team Providers Care Tire Beader Maker Name Role Phone Jose Schroeder MD Primary Care Provider [phone] Allergies No known active allergies Medications amLODIPine (NORVASC) 10 MG tablet Take 1 tablet by mouth 1 (one) time each day Active aspirin 81 MG chewable tablet Chew 1 tablet 1 (one) time each day Active atorvastatin (LIPITOR) 80 MG tablet Take 1 tablet by mouth 1 (one) time each day Active lisinopril (PRINIVIL,ZESTR IL) 40 MG tablet Take 40 mg by mouth 1 (one) time each day 05/16/2020 Active gabapentin (NEURONTIN) 300 MG capsule Take 300 mg by mouth in the morning and 300 mg at noon and 300 mg in the evening. 07/14/2023 Active traMADol (ULTRAM) 50 MG tablet Take 50 mg by mouth every 6 (six) hours if needed for moderate pain Active Active Problems Problem Noted Date Diagnosed Date Patient encounter status 07/02/2022 Renal osteodystrophy 05/18/2020 Stage 3a chronic kidney disease 05/15/2020 Hypertensive disorder 05/15/2020 Prediabetes 11/01/2019 Overview (07/15/2022): Last Assessment & Plan: A1c will be check with labs Impaired fasting glucose 02/02/2019 Alanine aminotransferase above reference range 1 04/05/2018 Cervical spondylosis 08/02/2018 Glaucoma of right eye 05/10/2018 Arthritis 10/17/2017 Overview (11/22/2023): Replacing diagnoses that were inactivated after the 11/22/23 Regulatory Import Dyslipidemia 06/20/2017 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 Resolved Problems Problem Noted Date Diagnosed Date Resolved Date 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 Immunizations Name Administration Dates Next Due Influenza Split High Dose Pr eservative Free IM 12/23/2016 Influenza, Quadrivalent, Pre servative Free 02/10/2021,01/17/2019 Influenza, Unspecified 11/12/2021,12/06/2019 Moderna SARS-COV-2 03/04/2022,,05/02/2020,04/04 Pneumococcal Conjugate 13-Valent 01/17/2019 Pneumococcal Polysaccharide 11/16/2021 Shingrix 01/19/2022,11/16/2021 Tdap 11/12/2021 Family History Medical History Relation Comments Cancer Father throat cancer Hypertension Mother Cancer Sibling brother prostate cancer, sister breast cancer Relation Status Comments Father Mother Sibling Social History Tobacco Use Types Packs/Day Years Used Date Smoking Tobacco: Every Day Alcohol Use Standard Drinks/Week Comments No 0 (1 standard drink = 0.6 oz pur e alcohol) Sex and Gender Information Value Date Recorded Sex Assigned at Not on file Legal Sex Male 4:58 PM EST Gender Identity Not on file Sexual Orientation Not on file Last Filed Vital Signs Vital Sign Reading Time Taken Comments Blood Pressure 119/60 07/21/2023 8:51 AM EDT Pulse 80 07/21/2023 8:51 AM EDT Temperature - - Respiratory Rate - - Oxygen Saturation 97% 07/21/2023 8:51 AM EDT Inhaled Oxygen Concentration - - Weight 77.3 kg (170 lb 6.4 oz) 07/21/2023 8:51 A M EDT Height 170.2 cm (5' 7 ) 11/03/2020 1:24 PM EDT Body Mass Index 26.69 11/03/2020 1:24 PM EDT Plan of Treatment Upcoming Encounters Date Type Department Care Team (Late st Contact Info) Description 07/19/2024 1:15 PM EDT Office Visit [facility] [address] [place] [address] Jose Schroeder MD [address] [address] Health Maintenance Due Date Last Done Comments Colorectal Cancer Screening: Annual FOBT 1997 Colorectal Cancer Screening: Colonoscopy 1997 Colorectal Cancer Screening: Sigmoidoscopy 1997 Influenza Vaccine (#1) 2023 2, 02/10/2021, 12/06/2019, Additional history exists Pneumococcal Vaccine: 65+ Years Completed 11/16/2021, 01/17/2019 Hepatitis B Vaccine Aged Out No longe r eligible based on patient's age to complete this topic Insurance [place]ICARE [place]ID [place] Care Teams Tire Beader Maker Relationship Specialty Start Date End Date Jose Schroeder MD PCP - General Nephrology 05/15/20
--- OUTSIDE RECORDS SUMMARY | 2024-03-19 12:36 | XMS_ITS | Encounter Summary ---
Author Organization [employer] Address [address] [facility] 7t [place] [address] Care Team Providers Care Skin Therapist Name Role Phone Jennifer Powell MD Primary Care Provide r Reason for Visit * Reason Onset Date Comments Med Refill 03/08/2024 Encounter Details Date Type Department Care Team (Late st Contact Info) Description 03/08/2024 Refill [facility] [address] [place], [place] [phone] Jennifer Powell MD [address] [place] [address] Cervical spondylosis Social History Tobacco Use Types [...] t he electric, gas, oil or water [employer] threatened to shut off services in your [...] as of this encounter Miscellaneous Notes * Addendum Note - Tiffany Heck RN - 03/14/2024 7:53 AM ESTAddended by: TIFFANY HECK on: 03/14/2024 07:53 AM Modules accepted: Orders * Telephone Encounter - Tiffany Heck RN - 03/08/2024 10:23 AM EST Per [facility], patient last picked up Tramadol refill 02/17/24. Refill not due until 03/16/24. Will forward to PCP on 03/14/24. * Telephone Encounter - Radha Hood LPN - 03/08/2024 10:20 AM EST Received request on traMADol (Ultram) 50 MG tablet documented in this encounter Plan of Treatment Upcoming Encounters Date Type Department Care Team (Late st Contact Info) Description 05/25/2024 9:00 AM EDT Telemedicine [facility] [address] [place] [address] Tiffany Heck RN documented as of this encounter Visit Diagnoses Diagnosis Cervical spondylosis Cervical spondylosis without myelopathy documented in this encounter Additional Health Concerns Assessment Noted Time PHQ-9 Depression Total Score: 0 07/03/19 23 8:54 AM EDT documented as of this encounter Care Teams Skin Therapist Relationship Specialty Start Date End Date Jennifer Powell MD [address] [place] [address] PCP - General Family Medicine 02/11/20 documented as of this encounter
--- OUTSIDE RECORDS SUMMARY | 2024-03-19 12:36 | XMS_ITS | Encounter Summary ---
Author Organization [employer] Address [address] [facility] 7t [place] [address] Care Team Providers Care Cardiac Cath Technologist Name Role Phone Jennifer Powell MD Primary Care Provide r Reason for Visit * Reason Comments RN CLINICAL DOCUMENTATION SPECIALIST RV RN CLINICAL DOCUMENTATION SPECIALIST RV Encounter Details Date Type Department Care Team (Late st Contact Info) Description 03/02/2024 10:00 AM EST Telemedicine [facility] [address] [place] [address] Sandra Heck RN Cervical spondylosis Social History Tobacco Use Types [...] AM EDT documented as of this encounter Progress Notes * Sandra Heck RN - 03/02/2024 10:00 AM EST S: Pt called for RN CLINICAL DOCUMENTATION SPECIALIST Revisit. Prescribed Tramadol 50mg Q8hr PRN. States he has been taking between 1-3 doses a day, depending on his pain level. He last took a Tramadol yesterday. He denies smoking cigarettes, ETOH use, Illicit drug use and marijuana use. Currently rates his pain an 5 and states medication is 70% effective at alleviating his pain. Current pain site is his left shoulder. 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 O: RN CLINICAL DOCUMENTATION SPECIALIST Tele Tier 3. Pt currently prescribed Tramadol 50mg Q8hr PRN. GYRO MECHANIC verified today. Rx last filled on 02/17/24. Pill count performed over the phone. Pt reports having 45 pills at this time, 41 atleast expected. Medication is not overused by patient. Last PCP visit was 06/29/23. A: RN CLINICAL DOCUMENTATION SPECIALIST Contract Revisit: Chronic Opioid use related to pain. P: Pt to continue taking medication only as prescribed; Next Tele RN CLINICAL DOCUMENTATION SPECIALIST Renewal appointment scheduledfor 05/25/24 @ 9am, F/U sooner PRN. Appointment reminder mailed. Pt verbalized understanding and agreed to plan. documented in this encounter Plan of Treatment Upcoming Encounters Date Type Department Care Team (Late st Contact Info) Description 05/25/2024 9:00 AM EDT Telemedicine [facility] [address] [place] [phone] Sandra Heck RN documented as of this encounter Visit Diagnoses Diagnosis Cervical spondylosis Cervical spondylosis without myelopathy documented in this encounter Additional Health Concerns Assessment Noted Time PHQ-9 Depression Total Score: 0 07/03/19 23 8:54 AM EDT documented as of this encounter Care Teams Cardiac Cath Technologist Relationship Specialty Start Date End Date Jennifer Powell MD [address] [place] [address] PCP - General Family Medicine 02/11/20 documented as of this encounter
--- OUTSIDE RECORDS SUMMARY | 2024-03-19 12:36 | XMS_ITS | Encounter Summary ---
Author Organization [employer] Address [address] [facility] 7t [place] [address] Care Team Providers Care Airport Screener Name Role Phone Jennifer Powell MD Primary Care Provide r Reason for Visit * Reason Onset Date Comments telephone call 03/07/2024 Encounter Details Date Type Department Care Team ([facility] st Contact Info) Description 03/07/2024 Telephone [facility] [address] [place] [address] Sandra Heck RN telephone call Social History Tobacco Use Types Packs/Day Years [...] encounter Miscellaneous Notes * Telephone Encounter - Abeba Camara - 03/07/2024 2:06 PM EST Fd called pt 03/07/2024 to let him know that there are documents waiting to be picked up he informed me that his daughter will be the one picking them up because she currently works here, and since he is feeling a little sick is just better for her to get them. I informed pt that I was going to getin contact with her. Verbalized understanding documented in this encounter Plan of Treatment Upcoming Encounters Date Type Department Care Team (Late st Contact Info) Description 05/25/2024 9:00 AM EDT Telemedicine [facility] [address] [place] [address] Sandra Heck, JODIE documented as of this encounter Visit Diagnoses Not on filedocumented in this encounter Additional Health Concerns Assessment Noted Time PHQ-9 Depression Total Score: 0 07/03/19 23 8:54 AM EDT documented as of this encounter Care Teams Airport Screener Relationship Specialty Start Date End Date Jennifer Powell MD [address] [place] [address] PCP - General Family Medicine 02/11/20 documented as of this encounter
--- OUTSIDE RECORDS SUMMARY | 2024-03-19 12:36 | XMS_ITS | Encounter Summary ---
Author Organization [facility] Address [address] [facility] [address] [place] [address] Phone Care Team Providers Care Psychometric Examiner Name Role Phone Jose Schroeder MD Primary Care Provider [phone] Encounter Details Date Type Department Care Team (Late Contact Info) Description 05/20/2020 Orders Only [facility] [address] [facility] [address] [place] [address] Provider, MD Taniya [address] [place] [address] Social History Tobacco Use Types Packs/Day Years Used Date Smoking Tobacco: Every Day Alcohol Use Standard Drinks/Week Comments No 0 (1 standard drink = 0.6 oz pur e alcohol) Sex and Gender Information Value Date Recorded Sex Assigned at Not on file Legal Sex Male 4:58 PM EST Gender Identity Not on file Sexual Orientation Not on file documented as of this encounter Plan of Treatment Upcoming Encounters Date Type Department Care Team (Late Contact Info) Description 07/19/2024 1:15 PM EDT Office Visit [facility] [address] [place] [phone] Jose Schroeder MD [address] [facility] [address] [place] [address] documented as of this encounter Procedures Procedure Name Priority Date/Time Associated Diagnosis Comments EXT RESULT ENTRY Routine 05/20/2020 documented in this encounter Results * EXT RESULT ENTRY (05/20/2020) us Historical Provider LAB BLOOD ORDERABLES Ashleigh l Result documented in this encounter Visit Diagnoses Not on filedocumented in this encounter Care Teams Psychometric Examiner Relationship Specialty Start Date End Date Jose Schroeder MD PCP - General Nephrology 05/15/20 documented as of this encounter
--- OUTSIDE RECORDS SUMMARY | 2024-03-19 12:37 | XMS_ITS | Clinical Summary ---
Author Organization [employer] Address [address] [facility] 7t [place] [address] Care Team Providers Care Distribution Associate Name Role Phone Jennifer Powell MD Primary Care Provide r Allergies No known active allergies Medications acetaminophen (Tylenol 8 Hour) 650 MG ER tablet take 1 tablet by oral route every 6 hours as needed swallowing whole with water 04/22/19 21 Active brimonidine (AlphaGAN P) 0.2 % ophthalmic solution Administer 1 drop into affected eye(s) every 8 (eight) hours. 07/12/19 18 Active cyclobenzaprine (Flexeril) 5 MG tablet Take 1 tablet by mouth in the morning and 1 tablet at noon and 1 tablet in the evening. 12/26/19 20 Active lidocaine (Lidoderm) 5 % patch Place 1 patch on the skin in the morning. 12/26/19 20 Active nicotine polacrilex (Nicorette) 2 MG gum Take by mouth. 10/22/19 18 Active ticagrelor (Brilinta) 60 MG tablet Take 1 tablet by mouth every 12 (twelve) hours. 11/14/19 22 Active zoster vaccine-recombi nant adjuvanted (Shingrix) 50 MCG/0.5ML vaccine Inject 0.5 mL into the shoulder, thigh, or buttocks. 11/13/19 22 Active amLODIPine (Norvasc) 10 MG tablet Take 1 tablet by mouth. 10/25/19 20 Active pseudoephedrine (Sudafed) 30 MG tabletIndicatio ns:Allergic sinusitis Take 1 tablet (30 mg) by mouth every 4 (four) hours if needed for congestion for up to 10 days. 30 tablet 04/27/19 23 Active amLODIPine (Norvasc) 10 MG tabletIndicatio ns:Essential hypertension TAKE 1 TABLET BY MOUTH ONCE DAILY 90 tablet 1 05/14/19 23 Active fluticasone (Flonase) 50 MCG/ACT nasal sprayIndication s:Acute frontal sinusitis, recurrence not specified USE 1-2 SPRAYS IN EACH NOSTRIL TWICE DAILY. 48 g 1 07/23/19 23 Active naloxone (Narcan) 4 mg/0.1 mL nasal sprayIndication s:Cervical spondylosis Administer 1 spray (4 mg) into affected nostril(s) if needed for opioid reversal. May repeat every 2-3 minutes if needed, alternating nostrils, until medical assistance becomes available. 2 each 3 06/01/19 24 2024 Active atorvastatin (Lipitor) 80 MG tablet TAKE 1 TABLET BY MOUTH EVERY DAY 90 tablet 3 11/08/19 24 Active lidocaine (Lidoderm) 5 % patchIndication s:Acute pain of left shoulder Apply 1 patch topically Once per day. Remove & discard patch within 12 hours or as directed by MD. May use 2 patches at once. 30 patch 2 11/09/19 24 2024 Active Aspirin Low Dose 81 MG chewable tablet CHEW AND SWALLOW 1 TABLET BY MOUTH EVERY DAY IN THE MORNING 90 tablet 1 02/20/20 24 Active Multiple Vitamin (Multivitamin) tabletIndicatio ns:Essential hypertension,Fa tigue, unspecified type TAKE 1 TABLET BY MOUTH EVERY MORNING 90 tablet 2 03/05/19 25 Active traMADol (Ultram) 50 MG tabletIndicatio ns:Cervical spondylosis Take 1 tablet (50 mg) by mouth every 8 (eight) hours if needed for severe pain for up to 28 days. Do not start before March 16, 2024. 84 tablet 03/16/19 25 2024 Active gabapentin (Neurontin) 300 MG capsuleIndicati ons:Cervical spondylosis TAKE 1 CAPSULE BY MOUTH THREE TIMES A DAY 90 capsule 03/14/19 25 Active Multiple Vitamin (Multivitamin) tabletIndicatio ns:Essential hypertension,Fa tigue, unspecified type TAKE 1 TABLET BY MOUTH EVERY MORNING 90 tablet 2 06/02/19 24 2024 Discontinued Aspirin Low Dose 81 MG chewable tablet CHEW AND SWALLOW 1 TABLET EVERY MORNING 90 tablet 1 08/15/19 24 2023 Discontinued traMADol (Ultram) 50 MG tabletIndicatio ns:Cervical spondylosis Take 1 tablet (50 mg) by mouth every 8 (eight) hours if needed for severe pain for up to 28 days. Do not start before February 14, 2024. 84 tablet 02/14/20 24 2024 Discontinued(R eorder (will not trigger notification to Pharmacy)) gabapentin (Neurontin) 300 MG capsuleIndicati ons:Cervical spondylosis Take 1 capsule (300 mg) by mouth 3 times daily. 90 capsule 02/09/20 24 2024 Discontinued(R eorder (will not trigger notification to Pharmacy)) Active Problems Problem Noted Date Diagnosed Date Fatigue 09/08/2022 Assessment & Plan (09/08/2022 1:04 PM EDT): r/o uncontrolled HTN. Pt will take BP meds daily with meals Counseled re low salt diet/increase moderate physical activity. Check home BP BIW and prn CP/BRANTLEY/MARROQUIN Non smoking patient. FU with PCP as recommended it could also be related to recovering from Covid I recommended to increase hydration, adequate rest, take medications for chronic conditions I will send a prescription for MVI Pt to fu with PCP Colon cancer screening 07/02/2022 Stage 3 chronic kidney disease 12/31/2019 Assessment & Plan (06/29/2023 10:17 AM EDT): BMP to monitor Avoid nephrotoxic medications Continue to follow with nephrology Assessment & Plan (03/30/2023 9:57 AM EST): Continue to follow with nephrology Prediabetes 11/01/2019 Assessment & Plan (07/02/2022 10:17 AM EDT): A1c will be check with labs ALT (SGPT) level raised 02/02/2019 Impaired fasting glucose 02/02/2019 Assessment & Plan (06/29/2023 10:19 AM EDT): A1c to be check Today extensive discussion was done about life style modifications I advise healthy diet (low calorie) and cardiovascular exercise Cervical spondylosis 08/02/2018 Assessment & Plan (06/29/2023 10:19 AM EDT): Finish PT today, return to pain management for further evaluation C/w gabapentin 300mg Q 8hrs C/w tramadol 50mgQ 12hrs PRN C/w flexeril if needed at bed time Assessment & Plan (03/30/2023 9:58 AM EST): Apply heat on affected area I will increase his gabapentin dose to 300mg TID if too much somnolence I advise to do BID I will prescribe for him tramadol 50mg Q 12hrs PRN patient will be call for contract PT referral in Continue to insist with pain management for local injections Assessment & Plan (12/30/2022 2:08 PM EST): Will start gabapentin 100 mg BID and slowly adjust as tolerated with PCP Prescription for Tramadol for a few days only given Cont tylenol PRN + stretching exercises of the neck + heat to effected area FU with pain clinic [facility] for steroid injection Glaucoma of right eye 05/10/2018 Arthritis of hand 10/17/2017 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 Initial goal of 30 min walk 3-5x/week. Increase as tolerated. - low-sodium diet (goal: <2g/day) and heart healthy diet such as DASH to reduce BP and prevent ASCVD. - Home BP monitoring 1-2 x day with goal of <140/90. - Seek immediate medical attention for chest pain, palpitations, SOB, syncope, or sudden changes in mental status. - Do not change or discontinue current prescriptions without first consulting health care provider Assessment & Plan (03/30/2023 9:57 AM EST): Maintenance: BMP: up to date Lipid Panel: up to date ASCVD Risk: high continue to be n atorvastatin 80mg and ASA 81mg daily - Aerobic exercise to reduce BP. Initial goal of 30 min walk 3-5x/week. Increase as tolerated. - low-sodium diet (goal: <2g/day) and heart healthy diet such as DASH to reduce BP and prevent ASCVD. - Home BP monitoring 1-2 x day with goal of <140/90. - Seek immediate medical attention for chest pain, palpitations, SOB, syncope, or sudden changes in mental status. - Do not change or discontinue current prescriptions without first consulting health care provider Assessment & Plan (09/08/2022 1:04 PM EDT): See above. Assessment & Plan (07/02/2022 10:16 AM EDT): Maintenance: BMP: ordered today Lipid Panel: ordered today ASCVD Risk: Calculate pending updated labs - Aerobic exercise to reduce BP. Initial goal of 30 min walk 3-5x/week. Increase as tolerated. - low-sodium diet (goal: <2g/day) and heart healthy diet such as DASH to reduce BP and prevent ASCVD. - Home BP monitoring 1-2 x day with goal of <140/90. - Seek immediate medical attention for chest pain, palpitations, SOB, syncope, or sudden changes in mental status. - Do not change or discontinue current prescriptions without first consulting health care provider Encounters Date Type Department Care Team Description 03/14/2024 Refill [facility] [address] [place] [address] Jnenifer Powell MD Cervical spondylosis 03/08/2024 Refill [facility] [address] [place] [address] Jennifer Powell MD Cervical spondylosis 03/07/2024 Telephone [facility] [address] [place], [place] [phone] Sandra Heck, JODIE telephone call 03/04/2024 Refill [facility] [address] [place] [address] Jennifer Powell MD Essential hypertension; Fatigue, unspecified type 03/02/2024 10:00 AM EST Telemedicine [facility] [address] [place] [phone] Sandra Heck, JODIE Cervical spondylosis 03/02/2024 Travel 03/02/2024 Telephone [facility] [address] [place] [phone] Sandra Heck RN Recommend BUSINESS OFFICE MANAGER Tele Tier 3 02/19/2024 Refill [facility] [address] [place] [phone] Jennifer Powell MD 02/09/2024 Refill [facility] [address] [place] [address] Jennifer Powell MD Cervical spondylosis 01/16/2024 Refill [facility] [address] [place] [phone] Sandra Heck RN Cervical spondylosis 01/06/[address] [address] Jennifer Powell MD Med Refill 01/06/2024 Refill [facility] [address] [place], [place] [phone] Yany Campbell ANP Cervical spondylosis 12/23/2023 9:30 AM EDT Telemedicine [facility] [address] [place] [phone] Sandra Heck, JODIE Cervical spondylosis 12/23/[address] [phone] Sandra Heck, JODIE BPI scoring from Last 3 Months Immunizations Name Administration Dates Next Due Influenza High-dose Quadriva lent Preservative Free 11/12/2021,12/06/2019 Influenza injectable quadriv alent preservative free 02/10/2021,01/17/2019 Influenza, High Dose Seasona l, Preservative Free 12/23/2016 Influenza, Unspecified 11/12/2021,12/06/2019 Moderna Covid-19 Vaccine 12+ 02/10/2021,05/03/19 21,04/04/2020 Moderna Covid-19 Vaccine 6+ Bivalent 03/04/2022 Pfizer Covid-19 Vaccine 12+ 12/30/2022 Pneumococcal Conjugate PCV 13 01/17/2019 Pneumococcal Polysaccharide PPSV23 11/16/2021 RSV Bivalent 04/06/2023 Tdap 11/12/2021 Zoster, Recombinant 01/19/2022,11/16/2021 Zoster, live 01/19/2022,11/16/2021 Social History Tobacco Use Types Packs/Day Years Used Date Smoking Tobacco: Former Cigarettes Smokeless Tobacco: Never Tobacco Cessation:Counseling Given: Not Answered Alcohol Use Standard Drinks/Week Comments Never 0 [...] Orientation Straight 12/21/2021 10 :33 AM EDT Last Filed Vital Signs Vital Sign Reading Time Taken Comments Blood Pressure 144/83 11/09/2023 8:47 AM EDT Pulse 79 11/09/2023 8:47 AM EDT Temperature 36.6 ??C (97.9 ??F) 11/09/2023 8:47 AM ED T Respiratory Rate 17 11/09/2023 8:47 AM EDT Oxygen Saturation 99% 11/09/2023 8:47 AM EDT Inhaled Oxygen Concentration - - Weight 75.5 kg (166 lb 6.4 oz) 11/09/2023 8:47 A M EDT Height 170.2 cm (5' 7 ) 06/29/2023 9:10 AM EDT Body Mass Index 26.06 06/29/2023 9:10 AM EDT Plan of Treatment Upcoming Encounters Date Type Department Care Team (Late st Contact Info) Description 05/25/2024 9:00 AM EDT Telemedicine [facility] [address], [place] [phone] Sandra Heck, RN Health Maintenance Due Date Last Done Comments CT Colonography 1948 Colonoscopy 1948 Colorectal Cancer Screening 1948 Dental Oral Exam 1948 Dental Prophylaxis 1948 Dental X-Ray: Bitewings 1948 Dental X-Ray: Full Mouth 1948 FIT DNA/Cologuard 1948 FIT 1948 FOBT 1948 Sigmoidoscopy 1948 Alcohol/Substance Use Screening 1960 Depression Screening 07/03/2023 07/02/2022, 07/03/19 23 COVID-19 Vaccine ( season) 2023 12/30/2022, 03/04/2022, 02/10/2021, Additional history exists Influenza Vaccine (#1) 2023 , 11/12/2021, 02/10/2021, Additional history exists SDOH Screening 03/29/2024 03/29/2023 Diabetes: Hemoglobin A1C 06/28/2024 024, 07/06/2022, 11/16/2021, Additional history exists Tobacco Screening 2024 11/09/2023 Lipid Panel 07/15/2028 07/16/2023, 0507/2022, 11/16/2021, Additional history exists DTaP/Tdap/Td Vaccines (2 - Td or Tdap) 11/13/2031 11/12/2021 Pneumococcal Vaccine: 65+ Years Completed 11/16/2021, 01/17/2019 Zoster Vaccines Completed 01/19/2022, 12/23, 11/16/2021, Additional history exists RSV Patients and Patients Aged 60 years or older Completed 04/06/2023 Hepatitis C Screening Completed 07/16/2023 HIB Vaccines Aged Out No longer eligi ble based on patient's age to complete this topic HPV Vaccines Aged Out No longer eligi ble based on patient's age to complete this topic Hepatitis A Vaccines Aged Out No long er eligible based on patient's age to complete this topic Hepatitis B Vaccines Aged Out No long er eligible based on patient's age to complete this topic IPV Vaccines Aged Out No longer eligi ble based on patient's age to complete this topic Meningococcal Vaccine Aged Out No raissa nirmal eligible based on patient's age to complete this topic RSV under 20 months Aged Out No longe r eligible based on patient's age to complete this topic Rotavirus Vaccines Aged Out No longer eligible based on patient's age to complete this topic Procedures Procedure Name Priority Date/Time Associated Diagnosis Comments HEPATITIS C AB W/REFL TO HCV RNA, QN, PCR Routine 07/16/2023 7:34 AM EDT Essential hypertension LIPID PANEL, STANDARD Routine 07/16/2023 7:34 AM EDT Essential hypertension POCT GLYCATED HEMOGLOBIN, TOTAL Routine 06/29/2023 9:57 AM EDT Impaired fasting glucose from Last 3 Months or Most Recently Relevant to Health Maintenance Results * Hepatitis C Antibody with Reflex to HCV, RNA, Quantitative, Real-Time PCR (07/16/2023 7:34 AM EDT) Hepatitis C Antibody Nonreactive Nonreactive [facility] Comment:Antibodies to HCV no t detected; does not exclude early acuteHCV infection. Blood Venous blood specimen / Unknown 07/16/2023 7:34 AM EDT 07/16/2023 7:34 AM EDT us Jennifer Coyle MD LAB BLOOD ORDERABLES Final Result Performing Organization Address [facility] Co de Phone Number [facility] [address] [place] [address] [phone] * Lipid Panel, Standard (07/16/2023 7:34 AM EDT) Triglycerides 93 <150 mg/dL [facility] Comment:Desirable Triglyceri de: less than 150 mg/dLBorderline High Triglyceride 150-199 mg/dLHigh Triglyceride: 200-499 mg/dLVery High Triglyceride: greater than or equal to 5OO mg/dL Cholesterol 115 <200 mg/dL [facility] Comment:Desirable Cholestero l: less than 200 mg/dLBorderline High Cholesterol: 200-239 mg/dLHigh Cholesterol: greater than 239 mg/dL LDL Cholesterol Calculated 56 <100 mg/dL [facility] Comment:Desirable LDL: less than 100 mg/dLNear Optimal/Above Optimal LDL: 110- 129 mg/dLBorderline High LDL: 130-159 mg/dLHigh LDL: 160-189 mg/dLVery High LDL: greater than or equal to 190 mg/dL HDL Cholesterol 41 >40 mg/dL [facility] Comment:Desirable HDL: great er than 40 mg/dL Note: This HDL assay may give artificially low results in patients with liver disease. Blood Venous blood specimen / Unknown 07/16/2023 7:34 AM EDT 07/16/2023 7:34 AM EDT us Jennifer Coyle MD LAB BLOOD ORDERABLES Final Result Performing Organization Address City/[facility]/ZIP Co de Phone Number [facility] [address] [place] [address] [phone] * POCT HGB A1C (06/29/2023 9:57 AM EDT) Hemoglobin A1C 5.4 4.0 - 6.0 % Other 06/29/2023 9:57 AM EDT Jennifer Coyle MD POINT OF CARE TEST EN TER/EDIT ORDERABLES Final Result from Last 3 Months or Most Recently Relevant to Health Maintenance Insurance [place] [address] [id number] [facility] DENTAL - HSN FULL (MEDICAID) DENTAL - HSN FULL (MEDICAID) Care Teams Distribution Associate Relationship Specialty Start Date End Date Jennifer Powell MD [address] [place] [phone] PCP - General Family Medicine 02/11/20
--- OUTSIDE RECORDS SUMMARY | 2024-03-19 12:37 | XMS_ITS | Encounter Summary ---
Author Organization [employer] Address [address] [facility] 7t [place] [address] Care Team Providers Care Molder Pipe Covering Name Role Phone Jennifer Powell MD Primary Care Provide r Reason for Visit * Reason Onset Date Comments Med Refill 01/06/2024 Encounter Details Date Type Department Care Team ([facility] st Contact Info) Description 01/06/2024 Telephone [facility] [address] [place], [place] [phone] Jennifer Powell MD [address] [place] [address] Med Refill Social History Tobacco Use Types Packs/Day Years [...] Telephone Encounter - Telma Franco LPN - 01/06/2024 9:18 AM EST Medication pended to PCP. * Telephone Encounter - Brody Mays - 01/06/2024 8:23 AM EST TC from pt requesting medication refill. Medications needing refill : gabapentin (Neurontin) 300 MG capsule To be sent to: [facility] documented in this encounter Plan of Treatment Upcoming Encounters Date Type Department Care Team (Late st Contact Info) Description 05/25/2024 9:00 AM EDT Telemedicine [facility] [address] [place] [address] Sandra Heck, RN documented as of this encounter Visit Diagnoses Not on filedocumented in this encounter Additional Health Concerns Assessment Noted Time PHQ-9 Depression Total Score: 0 07/03/19 23 8:54 AM EDT documented as of this encounter Care Teams Molder Pipe Covering Relationship Specialty Start Date End Date Jennifer Powell MD [address] [place] [address] PCP - General Family Medicine 02/11/20 documented as of this encounter
--- OUTSIDE RECORDS SUMMARY | 2024-03-19 12:37 | XMS_ITS | Encounter Summary ---
Author Organization [employer] Address [address] [place] [address] [address] [place] [address] Care Team Providers Care Paddock Judge Name Role Phone Jennifer Powell MD Primary Care Provide r Encounter Details Date Type Department Care Team (Late st Contact Info) Description 02/04/2022 Abstract [facility] [address] [place] [address] Chidi Renie, EFRAIN [address] [place] [address] Social History Tobacco Use Types Packs/Day Years Used Date Smoking Tobacco: Never Assessed Sex and Gender Information Value Date Recorded Sex Assigned at Male 12/21/2021 10:33 AM EDT Legal Sex Male 10:33 AM EDT Gender Identity Male 12/21/2021 10:33 AM EDT Sexual Orientation Straight 12/21/2021 10 :33 AM EDT COVID-19 Exposure Response Date Recorded In the last 10 days, have yo u been in contact with someone who was confirmed or suspected to have Coronavirus/COVID-19? No / Unsure 02/05/2022 10:35 AM EST documented as of this encounter Plan of Treatment Upcoming Encounters Date Type Department Care Team (Late st Contact Info) Description 05/25/2024 9:00 AM EDT Telemedicine [facility] [address] [place] [address] Sandra Heck RN documented as of this encounter Visit Diagnoses Not on filedocumented in this encounter Care Teams Paddock Judge Relationship Specialty Start Date End Date Jennifer Powell MD [address] [place] [address] PCP - General Family Medicine 02/11/20 documented as of this encounter
== END 2024-03-19 08:29 | disposition home or self-care (01) ==
PROVIDERS: PCP Internal Medicine; Visit Provider Anesthesiology
DX: M47.812 Spondylosis without myelopathy or radiculopathy, cervical region (principal)
CPT/HCPCS: 99213

== ENCOUNTER → 2024-03-19 08:15 | Outpatient (BNVA) | payer MEDICARE, MEDICAID, SELFPAY | PROVIDERS: PCP Internal Medicine; Visit Provider Anesthesiology | DX: M47.812 Spondylosis without myelopathy or radiculopathy, cervical region (principal); Z45.42 Encounter for adjustment and management of neurostimulator | CPT/HCPCS: 99212 ==

== ENCOUNTER 2024-11-23 08:04 | Outpatient (REF) | payer MEDICARE, MEDICAID, SELFPAY ==
--- OUTSIDE RECORDS SUMMARY | 2024-11-23 08:13 | XMS_ITS | Encounter Summary ---
Author Organization [employer] Address [address] [facility] 7t [place] [address] Care Team Providers Care Oil Pipeline Dispatcher Name Role Phone Jennifer Powell MD Primary Care Provide r Reason for Visit * Reason Comments Med Refill Encounter Details Date Type Department Care Team (Late st Contact Info) Description 09/06/2024 Refill [facility] [address] [place], [place] [phone] Kimberley Leija MD [address] [place] [address] Cervical spondylosis Social History Tobacco Use Types [...] Care Team (Late st Contact Info) Description 12/12/2024 2:00 PM EDT Office Visit [facility] [address] [place] [phone] Jennifer Powell MD [address] [place] [phone] 01/25/2025 9:30 AM EST Telemedicine [address] [phone] Sandra Heck RN documented as of this encounter Visit Diagnoses Diagnosis Cervical spondylosis Cervical spondylosis without myelopathy documented in this encounter Additional Health Concerns Assessment Noted Time PHQ-9 Depression Total Score: 0 07/03/19 23 8:54 AM EDT documented as of this encounter Care Teams Oil Pipeline Dispatcher Relationship Specialty Start Date End Date Jennifer Powell MD [address] [place] [phone] PCP - General Family Medicine 02/11/20 documented as of this encounter
--- OUTSIDE RECORDS SUMMARY | 2024-11-23 08:13 | XMS_ITS | Clinical Summary ---
Author Organization [facility] Address [address] [address] Care Team Providers Care Dredge Runner Name Role Phone Jose Schroeder MD Primary Care Provider Allergies No known active allergies Medications amLODIPine [...] Date Resolved Date 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 Immunizations Immunization Administration Dates Next Due Influenza Split High [...] Care Team (Late st Contact Info) Description 01/21/2025 1:45 PM EST Office Visit [facility] [address] [place] [phone] Jose Schroeder MD [address] [phone] Health Maintenance Due Date Last Done Comments Influenza Vaccine (#1) 2024 2, 02/10/2021, 12/06/2019, Additional history exists Pneumococcal Vaccine: 50+ Years Completed 11/16/2021, 01/17/2019 Pneumococcal Vaccine: Peds (0 to 5 Years) and At-Risk Patients (6 to 49 Years) Discontinued 11/16/2021, 01/17/2019 Hepatitis B Vaccine Aged Out No longe r eligible based on patient's age to complete this topic Insurance Medicare Medicaid [place] Medicare Medicaid [place] Care Teams Dredge Runner Relationship Specialty Start Date End Date Jose Schroeder MD PCP - General Nephrology 05/15/20
--- OUTSIDE RECORDS SUMMARY | 2024-11-23 08:13 | XMS_ITS | Encounter Summary ---
Author Organization [facility] Address [address] [address] [place] [phone] Phone Care Team Providers Care Flame Cutter Name Role Phone Unavailable Primary Care Provider Unavailabl e Encounter Details Date Type Department Care Team (Late st Contact Info) Description 05/30/2017 Ancillary Orders [facility] [address] [place] [address] Don Persaud MD [address] [place] [address] [email or web address] Social History Tobacco Use Types Packs/Day Years Used Date Smoking Tobacco: Never Assessed Sex and Gender Information Value Date Recorded Sex Assigned at Not on file Legal Sex Male 2:53 PM EDT Gender Identity Not on file Sexual Orientation Not on file documented as of this encounter Plan of Treatment Not on file documented as of this encounter Visit Diagnoses Not on filedocumented in this encounter Additional Source Comments The information contained in this document represents components of the legal health record. It is not the complete legal health record.[facility]
--- OUTSIDE RECORDS SUMMARY | 2024-11-23 08:13 | XMS_ITS | Clinical Summary ---
Author Organization [facility] Address [address] [place], [place] [phone] Phone Care Team Providers Care Analysis Analyst Name Role Phone Unavailable Primary Care Provider Unavailabl e Social History Tobacco Use Types Packs/Day Years Used Date Smoking Tobacco: Never Assessed Sex and Gender Information Value Date Recorded Sex Assigned at Not on file Legal Sex Male 2:53 PM EDT Gender Identity Not on file Sexual Orientation Not on file Plan of Treatment Not on file Medical Devices Not on file Insurance MEDICARE PART A & B MEDICARE PART A & B MEDICARE PART A & B MEDICARE PART A & B MEDICARE PART A & B MEDICARE PART A & B ([place]) [address] [place] [id number] MEDICARE PART A & B MEDICARE PART A & B MEDICARE PART A & B Additional Source Comments The information contained in this document represents components of the legal health record. It is not the complete legal health record.[facility]
--- OUTSIDE RECORDS SUMMARY | 2024-11-23 08:13 | XMS_ITS | Encounter Summary ---
Author Organization [facility] Address [address] [facility] [address] [place] [address] Phone Care Team Providers Care Administrative And Program Specialist Name Role Phone Jose Schroeder MD Primary Care Provider [phone] Encounter Details Date Type Department Care Team (Late Contact Info) Description 05/20/2020 Orders Only [facility] [address] [facility] [address] [place] [address] Provider, MD Taniya Social History Tobacco Use Types Packs/Day Years [...] Visit [facility] [address] [place] [phone] Jose Schroeder MD [address] [facility] 204 [place] [phone] documented as of this encounter Procedures Procedure Name Priority Date/Time Associated Diagnosis Comments EXT RESULT ENTRY Routine 05/20/2020 documented in this encounter Results * EXT RESULT ENTRY (05/20/2020) us Historical Provider LAB BLOOD ORDERABLES Ashleigh l Result documented in this encounter Visit Diagnoses Not on filedocumented in this encounter Care Teams Administrative And Program Specialist Relationship Specialty Start Date End Date Jose Schroeder MD PCP - General Nephrology 05/15/20 documented as of this encounter
--- OUTSIDE RECORDS SUMMARY | 2024-11-23 08:13 | XMS_ITS | Encounter Summary ---
Author Organization [facility] Address [address] [place] [address] Phone Care Team Providers Care Accounting Specialist Name Role Phone Unavailable Primary Care Provider Unavailabl e Encounter Details Date Type Department Care Team (Latest Contact Info) Description 05/30/2017 Ancillary Orders [facility] [address] [place] [address] [place] [address] Don Persaud MD [address] [place] [address] [email or web address] NSTEMI (non-ST elevated myocardial infarction) Social History Tobacco Use Types Packs/Day Years Used Date Smoking Tobacco: Never Assessed Sex and Gender Information Value Date Recorded Sex Assigned at Not on file Legal Sex Male 2:53 PM EDT Gender Identity Not on file Sexual Orientation Not on file documented as of this encounter Plan of Treatment Not on file documented as of this encounter Visit Diagnoses Diagnosis NSTEMI (non-ST elevated myocardial infarction) Acute myocardial infarction, subendocardial infarction, episode of care unspecified documented in this encounter Additional Source Comments The information contained in this document represents components of the legal health record. It is not the complete legal health record.[facility]
--- OUTSIDE RECORDS SUMMARY | 2024-11-23 08:13 | XMS_ITS | Encounter Summary ---
Author Organization [facility] Address [address] [facility] [address] [place] [address] Phone Care Team Providers Care Customer Service Attendant Name Role Phone Unavailable Primary Care Provider Unavailabl e Encounter Details Date Type Department Care Team (Latest Contact Info) Description 05/30/2017 Ancillary Orders [facility] [address] [place] [address] [place] [address] Cesar Armenta DO [address] [place] [address] NSTEMI (non-ST elevated myocardial infarction) Social History Tobacco Use Types Packs/Day Years Used Date Smoking Tobacco: Never Assessed Sex and Gender Information Value Date Recorded Sex Assigned at Not on file Legal Sex Male 2:53 PM EDT Gender Identity Not on file Sexual Orientation Not on file documented as of this encounter Plan of Treatment Not on file documented as of this encounter Results * Holter Monitor 48 Hours (05/30/2017 11:29 AM EDT) Anatomical Region Laterality Modality Heart Other Narrative 05/30/2017 5:21 PM EDT 48 hour monitor: No symptoms reported. Baseline rhythm is sinus with a minimum heart rate 53 maximum 102 average 69 bpm. Occasional PACs and PVCs present. Impression: Normal 48 hour monitor. No symptoms reported. Cesar Armenta DO CV CARDIAC SERVICES ORDERABLE S Final Result documented in this encounter Visit Diagnoses Diagnosis NSTEMI (non-ST elevated myocardial infarction) Acute myocardial infarction, subendocardial infarction, episode of care unspecified NSTEMI (non-ST elevated myocardial infarction) Acute myocardial infarction, subendocardial infarction, episode of care unspecified documented in this encounter Additional Source Comments The information contained in this document represents components of the legal health record. It is not the complete legal health record.[facility]
--- OUTSIDE RECORDS SUMMARY | 2024-11-23 08:14 | XMS_ITS | Encounter Summary ---
Author Organization [employer] Address [address] [facility] 7t [place] [address] Care Team Providers Care Professional Soccer Player Name Role Phone Jennifer Powell MD Primary Care Provide r Reason for Visit * Reason Onset Date Comments Med Refill 02/01/2023 Encounter Details Date Type Department Care Team (Late st Contact Info) Description 02/01/[address] [facility] [address] [place] [address] Jennifer Powell MD 230 [place] [address] Cervical spondylosis (Primary Dx) Social History Tobacco [...] the past 12 months, has t he [employer], gas, oil or water company threatened to [...] Miscellaneous Notes * Telephone Encounter - Flipcarmen Yiplynne Peterson - 02/01/2023 12:12 PM EST Tc from pt daughter requesting med refill on Tramadol 50 Mg tablet. Please sent to [facility] - [place], [place] - [address] [place] [address] documented in this encounter Plan of Treatment Upcoming Encounters Date Type Department Care Team (Late st Contact Info) Description 12/12/2024 2:00 PM EDT Office Visit [facility] [address] [place] [address] Jennifer Powell MD [address] [place] [address] 01/25/2025 9:30 AM EST Telemedicine [address] [address] Sandra Heck RN documented as of this encounter Visit Diagnoses Diagnosis Cervical spondylosis- Primary Cervical spondylosis without myelopathy documented in this encounter Additional Health Concerns Assessment Noted Time PHQ-9 Depression Total Score: 0 07/03/19 23 8:54 AM EDT documented as of this encounter Care Teams Professional Soccer Player Relationship Specialty Start Date End Date Jennifer Powell MD [address] [place] [phone] PCP - General Family Medicine 02/11/20 documented as of this encounter
--- OUTSIDE RECORDS SUMMARY | 2024-11-23 08:14 | XMS_ITS | Encounter Summary ---
Author Organization [employer] Address [address] [place] [address] 7t [place] [address] Care Team Providers Care Extension Course Coordinator Name Role Phone Jennifer Powell MD Primary Care Provide r Reason for Visit * Reason Comments Med Refill Encounter Details Date Type Department Care Team (Late Contact Info) Description [address] [facility] [address] [place], [place] [phone] Jennifer Powell MD 230 [place], [place] [phone] Social History Tobacco Use Types Packs/Day Years [...] Department Care Team (Late Contact Info) Description 12/12/2024 2:00 PM EDT Office Visit [facility] MED[facility]INE [address] [place] [phone] Jennifer Powell MD [address] [place] [phone] 01/25/2025 9:30 AM EST Telemedicine [facility] 230 [place] [address] Sandra Heck, RN documented as of this encounter Visit Diagnoses Not on filedocumented in this encounter Additional Health Concerns Assessment Noted Time PHQ-9 Depression Total Score: 0 07/03/19 23 8:54 AM EDT documented as of this encounter Care Teams Extension Course Coordinator Relationship Specialty Start Date End Date Jennifer Powell MD 230 [place] [address] PCP - General Family Medicine 02/11/20 documented as of this encounter
--- OUTSIDE RECORDS SUMMARY | 2024-11-23 08:14 | XMS_ITS | Encounter Summary ---
Author Organization [employer] Address [address] [facility] 7t [place] [address] Care Team Providers Care Cupola Hoist Operator Name Role Phone Jennifer Powell MD Primary Care Provide r Reason for Visit * Reason Onset Date Comments Med Refill 08/27/2024 Encounter Details Date Type Department Care Team ([facility] st Contact Info) Description 08/27/2024 Telephone [facility] MEDICINE 230 [place] [address] Jennifer Powell MD 230 [place] [address] Med Refill Social History Tobacco Use Types [...] Telephone Encounter - Telma Franco LPN - 08/27/2024 12:27 PM EDT Medication pended to PCP. * Telephone Encounter - Antoni Littlejohn - 08/27/2024 12:08 PM EDT TC from pt requesting medication refill. Medications needing refill : gabapentin (Neurontin) 300 MG capsule To be sent to: [facility] Pharmacy documented in this encounter Plan of Treatment Upcoming Encounters Date Type Department Care Team (Late st Contact Info) Description 12/12/2024 2:00 PM EDT Office Visit [facility] MEDICINE [address] [place] [phone] Jennifer Powell MD [address] [place] [address] 01/25/2025 9:30 AM EST Telemedicine [facility] [address] [place] [phone] Sandra Heck, JODIE documented as of this encounter Visit Diagnoses Not on filedocumented in this encounter Additional Health Concerns Assessment Noted Time PHQ-9 Depression Total Score: 0 07/03/19 23 8:54 AM EDT documented as of this encounter Care Teams Cupola Hoist Operator Relationship Specialty Start Date End Date Jennifer Powell MD [address] [place] [phone] PCP - General Family Medicine 02/11/20 documented as of this encounter
--- OUTSIDE RECORDS SUMMARY | 2024-11-23 08:14 | XMS_ITS | Clinical Summary ---
Author Organization [employer] Address [address] [place] [address] 7t [place] [address] Care Team Providers Care Humanities Department Chair Name Role Phone Jennifer Powell MD Primary [...] tablet in the evening. 12/26/19 20 Active zoster vaccine-recombi nant adjuvanted (Shingrix) 50 MCG/0.5ML vaccine Inject 0.5 mL into the shoulder, thigh, or buttocks. 11/13/19 22 Active amLODIPine (Norvasc) 10 MG tablet Take 1 tablet by mouth. 10/25/19 20 Active amLODIPine (Norvasc) 10 MG tabletIndicatio ns:Essential hypertension TAKE 1 TABLET BY MOUTH ONCE DAILY 90 tablet 1 05/14/19 23 Active fluticasone (Flonase) 50 MCG/ACT nasal sprayIndication s:Acute frontal sinusitis, recurrence not specified USE 1-2 SPRAYS IN EACH NOSTRIL TWICE DAILY. 48 g 1 07/23/19 23 Active Multiple Vitamin (Multivitamin) tabletIndicatio ns:Essential hypertension,Fa tigue, unspecified type TAKE 1 TABLET BY MOUTH EVERY MORNING 90 tablet 2 03/05/19 25 Active Aspirin Low Dose 81 MG chewable tablet CHEW AND SWALLOW 1 TABLET BY MOUTH EVERY DAY IN THE MORNING 90 tablet 1 08/28/19 25 Active gabapentin (Neurontin) 300 MG capsuleIndicati ons:Cervical spondylosis TAKE 1 CAPSULE BY MOUTH THREE TIMES DAILY 90 capsule 10/31/19 25 Active atorvastatin (Lipitor) 80 MG tablet TAKE 1 TABLET BY MOUTH EVERY DAY 90 tablet 3 11/01/19 25 Active traMADol (Ultram) 50 MG tabletIndicatio ns:Cervical spondylosis Take 1 tablet (50 mg) by mouth every 8 (eight) hours if needed for severe pain for up to 28 days. 84 tablet 11/13/19 25 025 Active atorvastatin (Lipitor) 80 MG tablet TAKE 1 TABLET BY MOUTH EVERY DAY 90 tablet 3 11/08/19 24 025 Discontinued gabapentin (Neurontin) 300 MG capsuleIndicati ons:Cervical spondylosis TAKE 1 CAPSULE BY MOUTH THREE TIMES DAILY 90 capsule 09/28/19 25 025 Discontinued traMADol (Ultram) 50 MG tabletIndicatio ns:Cervical spondylosis Take 1 tablet (50 mg) by mouth every 8 (eight) hours if needed for severe pain for up to 28 days. 84 tablet 10/13/19 25 025 Discontinued(R eorder (will not trigger notification to Pharmacy)) Active Problems Problem Noted Date Diagnosed Date Long-term current use of opiate analgesic 2024 Fatigue 09/08/2022 Assessment & Plan (09/08/2022 1:04 [...] screening 07/02/2022 Stage 3 chronic kidney disease (CMS/HCC) 020 Assessment & Plan (09/11/2024 2:20 PM EDT): Renal function will be checked advised to follow-up with nephrology Assessment & Plan (06/29/2023 10:17 AM EDT): BMP to monitor Avoid nephrotoxic medications Continue to follow with nephrology Assessment & Plan (03/30/2023 9:57 AM EST): Continue to follow with nephrology Prediabetes 11/01/2019 Assessment & Plan (09/11/2024 2:20 PM EDT): Extensive counseling about healthy diet and exercise done today Assessment & Plan (07/02/2022 10:17 AM EDT): A1c will be check with labs ALT (SGPT) level raised 02/02/2019 Impaired fasting glucose 02/02/2019 Assessment & Plan (06/29/2023 10:19 AM EDT): A1c to be check Today extensive discussion was done about life style modifications I advise healthy diet (low calorie) and cardiovascular exercise Cervical spondylosis 08/02/2018 Assessment & Plan (09/11/2024 2:21 PM EDT): Continue with gabapentin 300 mg every 8 hours, once I know how stay kidney function may go up on the dose Continue with tramadol 50 mg every 8 hours Continue to follow-up with pain specialist Assessment & Plan (06/29/2023 10:19 AM EDT): [...] eye 06/20/2017 Coronary artery disease invo lving [place] coronary artery of [place] heart without angina pectoris 06/20/2017 Dyslipidemia 06/20/2017 Essential hypertension 06/20/2017 Assessment & Plan (09/11/2024 2:20 PM EDT): Today blood pressure is slightly elevated, reports he gets a little nervous when he comes for an appointment, reports sometimes at home it it is like this but most of the time is in the 120s, I advised low-sodium diet to taking medication as prescribed and to monitor blood pressure at home's, let me know how is the blood pressure when he comes back for a follow-up appointment Assessment & Plan (06/29/2023 10:17 AM EDT): [...] Encounters Date Type Department Care Team Description 11/12/2024 Refill [facility] [address] [place] [address] Sandra Heck RN Cervical spondylosis 10/30/2024 Refill [facility] 505 [place] [address] Jennifer Powell MD 10/29/2024 Refill [facility] [address] [place] [address] Jennifer Powell MD Cervical spondylosis 10/11/2024 Refill [facility] [address] [place] [address] Sandra Heck RN Cervical spondylosis 10/04/2024 Telephone [facility] [address] [place] [address] Jennifer Powell MD OCT RECALL 09/27/2024 Refill [facility] [address] [place] [address] Jennifer Powell MD Cervical spondylosis 09/11/2024 1:00 PM EDT Office Visit [facility] [address] [place] [phone] Jennifer Powell MD Cervical spondylosis (Primary Dx); Stage 3 chronic kidney disease, unspecified whether stage 3a or 3b CKD (CMS/HCC); Essential hypertension; Prediabetes; Colon cancer screening 09/11/2024 Travel 09/10/[address] [address] Jennifer Powell MD Chart Prep 09/06/2024 Refill [facility] [address] [place] [address] Kimberley Leija MD Cervical spondylosis 09/06/2024 Refill [facility] [address] [place] [address] Jennifer Powell MD Cervical spondylosis 09/05/[address] [address] Jennifer Powell MD Appointment Request 08/27/[address] [address] Jennifer Powell MD Med Refill 08/27/[address] [address] Jennifer Powell MD Cervical spondylosis from Last 3 Months Immunizations Immunization Administration Dates Next Due Influenza High-dose Quadriva [...] Years Used Date Smoking Tobacco: Former Cigarettes Passive Smoke Exposure: Past Smokeless Tobacco: Never Tobacco Cessation:Counseling Given: Not Answered Alcohol Use Standard Drinks/Week Comments Never 0 (1 standard drink = 0.6 oz pur e alcohol) Depression Answer Date Recorded Patient Health Questionnaire-9 Score 0 09/11/2024 Patient Health Questionnaire-9 Score 0 09/11/2024 Last PHQ-9: Questionnaire Data Not on file 0 09/11/2024 Housing Stability Answer Date Recorded What is your housing situation today? I have filomena rodriguez 09/11/[address] you li ve. Do you have problems with any of the following? None of the above 09/11/2024 Food Insecurity Answer Date Recorded Within the past 12 months, y ou worried that your food would run out before you got money to buy more: Never True 09/11/2024 Within the past 12 months,th e food you bought just didn't last and you didn't have enough money to get more: Never True Transportation Answer Date Recorded In the past 12 months, has l ack of transportation kept you from medical appts, meetings, work or from getting things needed for daily living? No 12/30/2022 Utilities Answer Date Recorded In the past 12 months, has t he electric, gas, oil or water company threatened to shut off services in your home? No 09/11/2024 Depression Answer Date Recorded Patient Health Questionnaire-2 Score 0 09/11/2024 Internet Access Answer Date Recorded Internet Access Q1 No 09/11/2024 Internet Access Q2 I do not want or need it 08/22 Sex and Gender Information Value Date Recorded Sex Assigned at Male 12/21/2021 10:33 AM EDT Legal Sex Male 10:33 AM EDT Gender Identity Male 12/21/2021 10:33 AM EDT Sexual Orientation Straight 12/21/2021 10 :33 AM EDT Last Filed Vital Signs Vital Sign Reading Time Taken Comments Blood Pressure 144/89 09/11/2024 1:10 PM EDT Pulse 79 09/11/2024 1:10 PM EDT Temperature 36.7 C (98 F) 09/11/2024 1:10 PM EDT Respiratory Rate 17 09/11/2024 1:10 PM EDT Oxygen Saturation 98% 09/11/2024 1:10 PM EDT Inhaled Oxygen Concentration - - Weight 75.3 kg (166 lb) 09/11/2024 1:10 PM EDT Height 170.2 cm (5' 7 ) 09/11/2024 1:10 PM EDT Body Mass Index 26 09/11/2024 1:10 PM EDT Plan of Treatment Upcoming Encounters Date Type Department Care Team (Late st Contact Info) Description 12/12/2024 2:00 PM EDT Office Visit [facility] [address] [place] [address] [phone] Jennifer Powell MD [address] [place] [address] 01/25/2025 9:30 AM EST Telemedicine [facility] [address] [place] [phone] Sandra Heck, JODIE Health Maintenance Due Date Last Done Comments Dental Oral Exam 1950 Dental Prophylaxis 1950 Dental X-Ray: Bitewings 1950 Dental X-Ray: Full Mouth 1950 SDOH Screening 03/29/2024 03/29/2023 COVID-19 Vaccine ( season) 2024 12/30/2022, 03/04/2022, 02/10/2021, Additional history exists Influenza Vaccine (#1) 2024 , 11/12/2021, 02/10/2021, Additional history exists Alcohol/Substance Use Screening 09/11/2025 09/11/2024 Depression Screening 09/11/2025 09/11/2024, 09/12/19 Diabetes: Hemoglobin A1C 09/11/2025 025, 06/29/2023, 07/06/2022, Additional history exists Tobacco Screening 09/11/2025 09/11/2024 Lipid Panel 07/15/2028 07/16/2023, 06/21, 11/16/2021, Additional history exists DTaP/Tdap/Td Vaccines (2 - Td or Tdap) 11/13/2031 11/12/2021 Pneumococcal Vaccine: 50+ Years Completed 11/16/2021, 01/17/2019 Zoster Vaccines Completed [...] patient's age to complete this topic Meningococcal B Vaccine Aged Out No l onger eligible based on patient's age to complete [...] Procedure Name Priority Date/Time Associated Diagnosis Comments AMB REFERRAL TO GASTROENTEROLOGY Routine 09/12/2024 Colon cancer screening POCT GLYCATED HEMOGLOBIN, TOTAL Routine 09/11/2024 1:13 PM EDT Prediabetes POCT GLUCOSE Routine 09/11/2024 1:13 PM EDT Prediabetes HEPATITIS C AB W/REFL TO HCV RNA, QN, PCR Routine 07/16/2023 7:34 AM EDT Essential hypertension LIPID PANEL, STANDARD Routine 07/16/2023 7:34 AM EDT Essential hypertension from Last 3 Months or Most Recently Relevant to Health Maintenance Results * Referral to Gastroenterology (09/12/2024) us Jennifer Coyle MD OUTPATIENT REFERRAL O RDERABLES Final Result * POCT HGB A1C (09/11/2024 1:13 PM EDT) [facility] Hemoglobin A1C 5.2 4.0 - 5.7 % QC Media Lot # [id number] Lot# Expiration Date Blood 09/11/2024 1:13 PM EDT Result [facility] Jennifer Coyle MD POINT OF CARE TEST EN TER/EDIT ORDERABLES Final Result * POCT Glucose (09/11/2024 1:13 PM EDT) [facility] Glucose Blood, POC 111 60 - 200 mg/dL QC Media Lot # [id number] Lot# Expiration Date 443 Blood Capillary blood specimen / Unknown 09/11/2024 1:13 PM EDT Result [facility] Jennifer Coyle MD POINT OF CARE TEST EN TER/EDIT ORDERABLES Final Result * Hepatitis C Antibody with Reflex to HCV, RNA, Quantitative, Real-Time PCR (07/16/2023 7:34 AM EDT) [facility] Hepatitis C Antibody Nonreactive Nonreactive [facility] Comment:Antibodies to HCV no t detected; does not exclude early acuteHCV infection. Blood Venous blood specimen / Unknown 07/16/2023 7:34 AM EDT 07/16/2023 7:34 AM EDT Result [facility] Jennifer Coyle MD LAB BLOOD ORDERABLES Final Result [facility] [address] [place] [phone] * Lipid Panel, Standard (07/16/2023 7:34 AM EDT) [facility] Triglycerides 93 <150 mg/dL [facility] Comment:Desirable Triglyceri de: less than 150 mg/dLBorderline High Triglyceride 150-199 mg/dLHigh Triglyceride: 200-499 mg/dLVery High Triglyceride: greater than or equal to 5OO mg/dL Cholesterol 115 <200 mg/dL [facility] Comment:Desirable Cholestero l: less than 200 mg/dLBorderline High Cholesterol: 200-239 mg/dLHigh Cholesterol: greater than 239 mg/dL LDL Cholesterol Calculated 56 <100 mg/dL [facility] Comment:Desirable LDL: less than 100 mg/dLNear Optimal/Above Optimal LDL: 110- 129 mg/dLBorderline High LDL: 130-159 mg/dLHigh LDL: 160-189 mg/dLVery High LDL: greater than or equal to 190 mg/dL HDL Cholesterol 41 >40 mg/dL [facility] Comment:Desirable HDL: great er than 40 mg/dL Note: This HDL assay may give artificially low results in patients with liver disease. Blood Venous blood specimen / Unknown 07/16/2023 7:34 AM EDT 07/16/2023 7:34 AM EDT Jennifer Coyle MD LAB BLOOD ORDERABLES Final Result [facility] [address] [place] [address] [phone] from Last 3 Months or Most Recently Relevant to Health Maintenance Insurance MEDICARE [address] [place] [address] [place] [id number] [facility] STANDARD [place], [place] DENTAL - HSN FULL (MEDICAID) DENTAL - HSN FULL (MEDICAID) * Guarantor: Lg Rivas Account Type Relation to Patient Date of Phone Billing Address Personal/Family Self [place], [place] Care Teams Humanities Department Chair Relationship Specialty Start Date End Date Jennifer Powell MD [address] [place] [address] PCP - General Family Medicine 02/11/20
--- OUTSIDE RECORDS SUMMARY | 2024-11-23 08:15 | XMS_ITS | Encounter Summary ---
Author Organization [facility] [facility] Address [address] [place] [address] 7 [place] [address] Care Team Providers Care Ela Teacher Name Role Phone Jennifer Powell MD Primary Care Provide r Encounter Details Date Type Department Care Team ([facility] Contact Info) Description 02/04/2022 Abstract [facility] ADULT DENTAL [address] [place] [address] Yann Ren, EFRAIN [address] [place] [address] Social History Tobacco Use Types Packs/Day Years [...] Description 12/12/2024 2:00 PM EDT Office Visit [facility] MEDICINE [address] [place] [address] Jennifer Powell MD [address] [place], [place] [phone] 01/25/2025 9:30 AM EST Telemedicine [facility] MEDICINE [address] [place] [address] Maria R, Sandra, RN documented as of this encounter Visit Diagnoses Not on filedocumented in this encounter Care Teams Ela Teacher Relationship Specialty Start Date End Date Jennifer Powell MD [address] [place] [phone] PCP - General Family Medicine 02/11/20 documented as of this encounter
--- OUTSIDE RECORDS SUMMARY | 2024-11-23 08:15 | XMS_ITS | Encounter Summary ---
Author Organization [employer] Address [address] [facility] 7t [place] [address] Care Team Providers Care Hammer Shop Supervisor Name Role Phone Jennifer Powell MD Primary Care Provide r Reason for Visit * Reason Onset Date Comments Med Refill 01/06/2024 Encounter Details Date Type Department Care Team ([facility] st Contact Info) Description 01/06/[address] [facility] MEDICINE [address] [place] [address] Jennifer Powell MD [address] [place] [address] Med Refill Social History Tobacco Use Types [...] 300 MG capsule To be sent to: [facility] documented in this encounter Plan of Treatment Upcoming Encounters Date Type Department Care Team (Late st Contact Info) Description 12/12/2024 2:00 PM EDT Office Visit [facility] MEDICINE [address] [place] [phone] Jennifer Powell MD [address] [place] [phone] 01/25/2025 9:30 AM EST Telemedicine [facility] MEDICINE [address] [place] [phone] Sandra Heck RN documented as of this encounter Visit Diagnoses Not on filedocumented in this encounter Additional Health Concerns Assessment Noted Time PHQ-9 Depression Total Score: 0 07/03/19 23 8:54 AM EDT documented as of this encounter Care Teams Hammer Shop Supervisor Relationship Specialty Start Date End Date Jennifer Powell MD [address] [place] [phone] PCP - General Family Medicine 02/11/20 documented as of this encounter
[2024-11-23 11:32] LABS: MANUAL DIFF FLAG NO
[2024-11-23 11:49] LABS: Hematocrit 45.8 % (42.0-52.0); Hemoglobin 15.8 g/dl (14.0-18.0); Imm Gran Abs Auto 0.03 X10*3/uL (0.00-0.03); Imm Gran Pct Auto 0.4 % (0.0-0.4); Lymphocytes Absolute Auto 1.9 X10*3/uL (1.2-4.9); Mean Corpuscular HGB Conc 34.5 g/dl (31.0-36.0); Mean Corpuscular Hemoglobin 31.3 pg (27.0-33.0); Mean Corpuscular Volume 90.7 fL (80.0-98.0); NRBC Abs Auto 0.000 X10*3/uL (0.0-0.012); NRBC Pct Auto 0.0 /100WBC (0.0-0.2); Platelet Count 212 X10*3/uL (160-400); Red Blood Count 5.05 X10*6/uL (4.60-5.80); White Blood Count 6.8 X10*3/uL (4.8-10.8)
[2024-11-23 12:17] LABS: Anion Gap 7 (12-20); Blood Urea Nitrogen 16 mg/dL (9-16); Carbon Dioxide 29 mmol/L (22-29); Chloride 107 mmol/L (96-108); Potassium 4.0 mmol/L (3.3-5.1); Sodium 139 mmol/L (135-145)
[2024-11-23 12:18] LABS: Alanine Aminotransferase 22 U/L (0-40); Albumin Level 4.3 g/dL (3.5-5.0); Alkaline Phosphatase 56 U/L (39-117); Aspartate Amino Transferase 30 U/L (5-37); Calcium 9.0 mg/dL (8.4-10.2); Cholesterol 107 mg/dL (<200); Estimated Glomerular Filt Rate > 60; HDL Cholesterol 37 mg/dL (>40); Total Protein 7.3 g/dL (6.5-8.0); Triglycerides 83 mg/dL (<150)
[2024-11-23 12:22] LABS: HIV Num 1 0.05 S/CO (0.00-0.99); ~HepC Num1 0.09 S/CO (0.00-0.79); ~Hepatitis C Antibody Nonreactive (Nonreactive)
== END 2024-11-23 08:05 | disposition home or self-care (01) ==
LOC: HO.HHCL 08:04
PROVIDERS: PCP Internal Medicine; Visit Provider Internal Medicine
DX: Z11.4 Encounter for screening for human immunodeficiency virus [HIV] (principal); Z11.59 Encounter for screening for other viral diseases; I12.9 Hypertensive chronic kidney disease with stage 1 through stage 4 chronic kidney disease, or unspecified chronic kidney disease; N18.30 Chronic kidney disease, stage 3 unspecified; R73.03 Prediabetes
CPT/HCPCS: 36415; 80053; 80061; 85025; 86803; 87389

== ENCOUNTER 2025-01-09 12:38 | Outpatient (AMB) | payer MEDICARE, MEDICAID, SELFPAY ==
[2025-01-09 12:54] VITALS: BP 149/76; PULSE 77; RESP 16; O2SAT 97; BMI 25.2
--- NOTE | 2025-01-09 12:54 | MHC.OFFVIS ---
Vital Signs 01/09/25 12:54 Height 5 ft 7 in Weight 161 lb BMI 25.2 BP 149/76 H Blood Pressure Location Lt brachial Position Sitting Respiration 16 Pulse 77 Pulse Source Pulse Oximeter Pulse Oximetry (%) 97 Oxygen Delivery Method Room Air Intake Visit Reasons: PROCEDURE OPTIONS Baby Counselor Required: No Allergies No Known Allergies (No Known Allergies*) Allergy (Verified 01/09/25 12:58) HPI Comments Details: Mr. Rivas is back in my office complaining on cervicalgia. He received in February of 2024 sprint PNS stimulation of bilateral C5 which resulted in 80% pain improvement while the wires were positioned in the neck. Unfortunately as soon as the wires were removed the patient started to feel pain again. He requests me to consider permanent placement of the Curonix peripheral nerve stimulation at the same C5 positioned. The patient was explained risks and benefits of the procedure. The brochure of Curonix was given to the patient. The brochure of [facility] psychological evaluation was given to the patient. The patient and his relatives decided to think about it, when they will decide to go for psychological evaluation they will give us a call. PNS. In the past he received bilateral therapeutic C4-C5 C6 medial branch block which was performed on 01/26/2022. originally he reported 80 to 100% pain improvement as the result of the injection.The initial pain relieve after the procedure in January of 2022 lasted according to the patient 4-5 months. He reported that his pain went back and now he is suffering again as much as he was before the initial injection. CAROL for the neck for this patient - his total score is = 70. Therefore the patient is totally disabled because of his neck condition. The entire score of the Pain and Disability questioner is uploaded in the chart. He recently went for 8 sessions of PT and continued home exercise program. Unfortunately that was not effective for his pain control. He has tried NSAIDs and muscle relaxants for his neck pain. That was not helpful at all. He reports his pain 6 to 7/10. He reports that pain can be more severe and sometimes go to 8/10 to 9/10. Prior: complains on cervicalgia.? He reports 10 years of suffering from this pain. He is self mobile.? He reports that pain is worse with sitting and standing up and is aggravated turning of the head.?? He never had physical therapy for his pain in the neck.? He had MRI done results of which are dictated as below.? His past medical history is significant for hypertension and coronary artery disease.? He had stents done in the past and he is on Brilinta.? The Brilinta needs to be stopped before the procedure.? The matter of fact he is going for general surgery unrelated to his cervical pain and his Brilinta will be stopped [facility] Medical History Bleeding hemorrhoids Blind left eye Coronary disease DDD (degenerative disc disease), cervical Elevated cholesterol Hx of kidney disease Hypertension Prolapsed hemorrhoids Surgical History H/O tooth extraction History of eye surgery Hx of cardiac catheterization Hx of colonoscopy Family History Maternal Aunt Breast cancer Sister Cancer Brother Prostate cancer Sister Cancer Social History Household Members Other:: daughter Are you a primary small animal caretaker to a significant other at home: No Do you presently have visiting nurse or other home services: No Alcohol intake: former Patient Tobacco Use Status: Former Tobacco user Tobacco use type: Cigarette Review of Systems Const All systems reviewed & are unremarkable except as noted in HPI and below ENT Reports Normal hearing present Neuro Reports Normal hearing present, Denies Abnormal speech present, Denies confusion and Denies Sensory deficit (Neuro) Psych Denies confusion Physical Exam Vital Signs: Last Vital Signs Pulse 77 01/09/25 12:54 Resp 16 01/09/25 12:54 BP 149/76 H 01/09/25 12:54 Pulse Ox 97 01/09/25 12:54 Oxygen Delivery Method Room Air 01/09/25 12:54 BMI result Body Mass Index 25.2 Const General: No confusion Orientation/consciousness: No confusion Eyes General: appearance normal, both eyes and all related structures Pupils: Equal, round and reactive pupils present EOM: EOMs intact bilaterally Neck Other: Patient reports most of the pain on the neck with lateral rotation of the head. Flexing forward and flexing backwards does not aggravate his pain. He has significant pain increase with Valsalva maneuver. Axial compression and axial extension do not change his pain. Lhermitte is negative. Spurling is equivocal bilaterally. Neck: Yes full ROM Chest Chest palpation & inspection: normal inspection of the chest Resp Effort & Inspection: normal respiratory effort, able to speak in complete sentences, normal respiratory pattern, no audible wheezes and no cough Cardio Jugular venous distension: no JVD GI Inspection: Yes normal to inspection Neuro General: No confusion Cranial nerves: Yes CN's II-XII intact bilaterally, Yes Equal, round and reactive pupils present, Yes Normal hearing present and Yes Ability to bilaterally elevate shoulders present Speech: No Abnormal speech present Gait exam (Neuro): Normal gait present Motor exam (neuro): 5/5 motor strength present throughout Sensory Exam: No Sensory deficit (Neuro) Assessment & Plan Assessment & Plan (1) Spondylosis of cervical spine without myelopathy: Code(s): M47.812 - Spondylosis without myelopathy or radiculopathy, cervical region Category: Medical Plan Very good results of sprint PNS at C5 positioned bilaterally back in February of 2024. However as soon as the leads were removed patient pain started to come back. I suggested sprint PNS to be replaced with permanent placement of cure on X PNS. Cure on X brochure was given to the patient and his relative. [facility] brochure for psychological evaluation also was given to the patient. We agreed that the patient will give us a call when he will start doing her is psychological evaluation if he decides to go for cure on X PNS. Alternatively spinal cord stimulator cervical positioned can not be offered to the patient to help his pain. Coding Level of Care Code Est Pt Level 3 (56692) Diagnoses Spondylosis of cervical spine without myelopathy M47.812
--- OUTSIDE RECORDS SUMMARY | 2025-01-09 23:55 | XMS_ITS | Encounter Summary ---
Author Organization [email or web address] Address [address] [facility] 7t [place] [address] Care Team Providers Care Cobol Programmer Name Role Phone Jennifer Powell MD Primary Care Provide r Reason for Visit * Reason Comments Med Refill Encounter Details Date Type Department Care Team ([facility] st Contact Info) Description 12/21/2024 Refill [facility] MEDICINE [address] [place] [address] Jennifer Powell MD [address] [place] [address] Social History Tobacco Use Types Packs/Day Years Used Date Smoking Tobacco: Former Cigarettes Passive Smoke Exposure: Past Smokeless Tobacco: Never Alcohol Use Standard Drinks/Week [...] getting things needed for daily living? No 12/05/2024 Utilities Answer Date Recorded In the past 12 months, has t he electric, gas, oil or water company threatened to shut off services in your home? No 09/11/2024 Depression Answer Date Recorded Patient Health Questionnaire-2 Score 0 09/11/2024 Internet Access Answer Date Recorded Internet Access Q1 Yes 12/05/2024 Internet Access Q2 I do not want or need it 11/21 Sex and Gender Information Value Date Recorded Sex Assigned at Male 12/21/2021 10:33 AM EDT Legal Sex Male 10:33 AM EDT Gender Identity Male 12/21/2021 10:33 AM EDT Sexual Orientation Straight 12/21/2021 10 :33 AM EDT documented as of this encounter Plan of Treatment Upcoming Encounters Date Type Department Care Team (Late st Contact Info) Description 01/25/2025 9:30 AM EST Telemedicine [facility] MEDICINE [address] [place] [phone] Sandra Heck RN 03/01/2025 1:30 PM EST Office Visit [facility] MEDICINE [address] [place] [phone] Jennifer Powell MD [address] [place] [phone] documented as of this encounter Visit Diagnoses Not on filedocumented in this encounter Additional Health Concerns Assessment Noted Time PHQ-9 Depression Total Score: 0 09/12/19 25 1:11 PM EDT documented as of this encounter Care Teams Cobol Programmer Relationship Specialty Start Date End Date Jennifer Powell MD [address] [place] [phone] PCP - General Family Medicine 02/11/20 documented as of this encounter
--- OUTSIDE RECORDS SUMMARY | 2025-01-09 23:55 | XMS_ITS | Encounter Summary ---
Author Organization [employer] Address [address] [place] [address] 7t [place] [address] Care Team Providers Care Legal Instructor Name Role Phone Jennifer Powell MD Primary Care Provide r Reason for Visit * Reason Comments Med Refill Encounter Details Date Type Department Care Team (Late st Contact Info) Description 2022 Refill [facility] MED & PEDS [address] [place], [place] [phone] Jennifer Powell MD [address] [place], [place] [phone] Social History Tobacco Use Types Packs/Day Years [...] Department Care Team (Late Contact Info) Description 01/25/2025 9:30 AM EST Telemedicine [facility] MEDICINE [address] [place] [address] [phone] Sandra Heck RN 03/01/2025 1:30 PM EST Office Visit [facility] MEDICINE [address] [place] [address] [phone] Jennifer Powell MD [address] [place] [phone] documented as of this encounter Visit Diagnoses Not on filedocumented in this encounter Additional Health Concerns Assessment Noted Time PHQ-9 Depression Total Score: 0 07/03/19 23 8:54 AM EDT documented as of this encounter Care Teams Legal Instructor Relationship Specialty Start Date End Date Jennifer Powell MD [address] [place] [phone] PCP - General Family Medicine 02/11/20 documented as of this encounter
--- OUTSIDE RECORDS SUMMARY | 2025-01-09 23:55 | XMS_ITS | Encounter Summary ---
Author Organization [employer] Address [address] [facility] 7t [place] [address] Care Team Providers Care Network Administrator Name Role Phone Jennifer Powell MD Primary Care Provide r Reason for Visit * Reason Onset Date Comments Med Refill 08/27/2024 Encounter Details Date Type Department Care Team ([facility] st Contact Info) Description 08/27/2024 Telephone [facility] MEDICINE [address] [place] [address] Jennifer Powell MD [address] [place] [address] Med Refill Social History Tobacco Use Types [...] 300 MG capsule To be sent to: [facility] documented in this encounter Plan of Treatment Upcoming Encounters Date Type Department Care Team (Late st Contact Info) Description 01/25/2025 9:30 AM EST Telemedicine [facility] MEDICINE [address] [place] [phone] Sandra Heck RN 03/01/2025 1:30 PM EST Office Visit [facility] MEDICINE [address] [place] [phone] Jennifer Powell MD [address] [place] [phone] documented as of this encounter Visit Diagnoses Not on filedocumented in this encounter Additional Health Concerns Assessment Noted Time PHQ-9 Depression Total Score: 0 07/03/19 23 8:54 AM EDT documented as of this encounter Care Teams Network Administrator Relationship Specialty Start Date End Date Jennifer Powell MD [address] [place] [phone] PCP - General Family Medicine 02/11/20 documented as of this encounter
--- OUTSIDE RECORDS SUMMARY | 2025-01-09 23:55 | XMS_ITS | Clinical Summary ---
Author Organization [employer] Address [address] [place] [address] 7t [place] [address] Care Team Providers Care Track Laying Machine Operator Name Role Phone Jennifer Powell MD [...] 11/13/19 22 Active amLODIPine (Norvasc) 10 MG tabletIndicatio ns:Essential hypertension TAKE 1 TABLET BY MOUTH ONCE DAILY 90 tablet 1 05/14/19 23 Active Aspirin Low Dose 81 MG chewable tablet CHEW AND SWALLOW 1 TABLET BY MOUTH EVERY DAY IN THE MORNING 90 tablet 1 08/28/19 25 Active atorvastatin (Lipitor) 80 MG tablet TAKE 1 TABLET BY MOUTH EVERY DAY 90 tablet 3 11/01/19 25 Active fluticasone (Flonase) 50 MCG/ACT nasal sprayIndication s:Acute non-recurrent frontal sinusitis USE 1-2 SPRAYS IN EACH NOSTRIL TWICE DAILY. 48 g 1 11/24/19 25 Active Multiple Vitamin (Multivitamin) tabletIndicatio ns:Essential hypertension,Fa tigue, unspecified type Take 1 tablet by mouth in the morning. 90 tablet 2 12/07/19 25 Active traMADol (Ultram) 50 MG tabletIndicatio ns:Cervical spondylosis Take 1 tablet (50 mg) by mouth every 8 (eight) hours if needed for severe pain for up to 28 days. 84 tablet 12/14/19 25 025 Active gabapentin (Neurontin) 300 MG capsuleIndicati ons:Cervical spondylosis TAKE 1 CAPSULE BY MOUTH THREE TIMES DAILY 90 capsule 12/29/19 25 Active amLODIPine (Norvasc) 10 MG tablet Take 1 tablet by mouth. 10/25/19 20 025 Discontinued gabapentin (Neurontin) 300 MG capsuleIndicati ons:Cervical spondylosis TAKE 1 CAPSULE BY MOUTH THREE TIMES DAILY 90 capsule 11/30/19 25 025 Discontinued traMADol (Ultram) 50 MG tabletIndicatio ns:Cervical spondylosis TAKE 1 TABLET BY MOUTH EVERY 8 HOURS NEEDED FOR SEVERE PAIN FOR UP TO 28 DAYS 84 tablet 12/11/19 25 025 Discontinued(R eorder (will not trigger notification to Pharmacy)) amoxicillin-cla vulanate (Augmentin) 875-125 MG tabletIndicatio ns:Subacute ethmoidal sinusitis Take 1 tablet by mouth 2 times daily for 7 days. 14 tablet 12/07/19 25 025 levoFLOXacin (Levaquin) 500 MG tabletIndicatio ns:Recurrent sinusitis Take 1 tablet (500 mg) by mouth Once per day for 7 days. 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 06/20/2017 Dyslipidemia 06/20/2017 [...] Encounters Date Type Department Care Team Description 12/28/2024 Refill [facility] [address] [place] [address] Jennifer Powell MD Cervical spondylosis 12/21/2024 Refill [facility] [address] [place] [address] Jennifer Powell MD 12/13/2024 Refill [facility] [address] [place] [address] Sandra Heck RN Cervical spondylosis 12/12/2024 2:00 PM EDT Office Visit [facility] [address] [place] [address] Jennifer Powell MD Recurrent sinusitis (Primary Dx); Essential hypertension; 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 12/12/2024 Travel 12/11/2024 Telephone [facility] [address] [place] [phone] Jennifer Powell MD Chart Prep 12/06/2024 8:40 AM EDT Office Visit [facility] [address] [place] [phone] Judson Garcia MD Subacute ethmoidal sinusitis (Primary Dx) 12/06/2024 Refill [facility] [address] [place] [phone] Jennifer Powell MD Essential hypertension; Fatigue, unspecified type 12/06/2024 Travel 12/05/2024 Patient Outreach [facility] & PEDS [address] [place] [address] Jennifer Powell MD Pre-visit Planning (SDOH negative, Tobacco screening negative. ) 12/05/2024 Refill [facility] [address] [place] [phone] Kimberley Leija MD Cervical spondylosis; Essential hypertension; Fatigue, unspecified type 12/05/2024 Refill [facility] [address] [place] [phone] Jennifer Powell MD Essential hypertension; Fatigue, unspecified type 12/05/2024 Travel 12/05/2024 Telephone [facility] [address] [place] [phone] Judson Garcia MD medication not effective 11/28/2024 Refill [facility] [address] [place] [phone] Jennifer Powell MD Cervical spondylosis 11/23/2024 8:40 AM EDT Office Visit [facility] [address] [place] [phone] Judson Garcia MD Acute non-recurrent frontal sinusitis (Primary Dx) 11/23/2024 Travel 11/12/2024 Refill [facility] [address] [place] [address] Sandra Heck RN Cervical spondylosis 10/30/2024 Refill [facility] [address] [place] [address] Jennifer Powell MD 10/29/2024 Refill [facility] [address] [place] [address] Jennifer Powell MD Cervical spondylosis 10/11/2024 Refill [facility] [address] [place] [address] Sandra Heck RN Cervical spondylosis from Last 3 Months Immunizations [...] Sign Reading Time Taken Comments Blood Pressure 128/84 12/12/2024 2:13 PM EDT Pulse 92 12/12/2024 2:13 PM EDT Temperature 36.4 C (97.5 F) 12/12/2024 2:13 PM EDT Respiratory Rate 16 12/12/2024 2:13 PM EDT Oxygen Saturation 98% 12/12/2024 2:13 PM EDT Inhaled Oxygen Concentration - - Weight 74.2 kg (163 lb 9.6 oz) 12/12/2024 2:13 P M EDT Height 170.2 cm (5' 7 ) 12/12/2024 2:13 PM EDT Body Mass Index 25.62 12/12/2024 2:13 PM EDT Plan of Treatment Upcoming Encounters Date Type Department Care Team (Late st Contact Info) Description 01/25/2025 9:30 AM EST Telemedicine [facility] [address] [place] [phone] Sandra Heck RN 03/01/2025 1:30 PM EST Office Visit [facility] [address] [place] [address] Jennifer Powell MD [address] [place] [address] Health Maintenance Due Date Last Done Comments Dental Oral Exam 1950 Dental Prophylaxis 1950 Dental X-Ray: Bitewings 1950 Dental X-Ray: Full Mouth 1950 COVID-19 Vaccine ( season) 2024 12/30/2022, 03/04/2022, 02/10/2021, Additional history exists Influenza Vaccine (#1) 2024 , 11/12/2021, 02/10/2021, Additional history exists Alcohol/Substance Use Screening 09/11/2025 09/11/2024 Depression Screening 09/11/2025 09/11/2024, 09/12/19 25 Diabetes: Hemoglobin A1C 09/11/2025 025, 06/29/2023, 07/06/2022, Additional history exists SDOH Screening 12/05/2025 12/05/2024 Tobacco Screening 12/12/2025 12/12/2024 Lipid Panel 11/23/2029 11/23/2024, 06/22, 07/06/2022, Additional history exists DTaP/Tdap/Td Vaccines (2 - Td or Tdap) 11/13/2031 11/12/2021 Pneumococcal Vaccine: 50+ Years Completed 11/16/2021, 01/17/2019 Zoster Vaccines Completed 01/19/2022, 12/23, 11/16/2021, Additional history exists RSV Patients and Patients Aged 60 years or older Completed 04/06/2023 Hepatitis C Screening Completed 11/23/2024, 024 HIB Vaccines Aged Out No longer eligi [...] Procedure Name Priority Date/Time Associated Diagnosis Comments POCT COVID-19 AG ENNIS ID NOW Routine 12/06/2024 9:23 AM EDT Subacute ethmoidal sinusitis POCT INFLUENZA A (ID NOW RAPID MOLECULAR) Routine 12/06/2024 9:23 AM EDT Subacute ethmoidal sinusitis POCT INFLUENZA B (ID NOW RAPID MOLECULAR) Routine 12/06/2024 9:23 AM EDT Subacute ethmoidal sinusitis LIPID PANEL, STANDARD Routine 11/23/2024 8:09 AM EDT Prediabetes Essential hypertension HEPATITIS C AB W/REFL TO HCV RNA, QN, PCR Routine 11/23/2024 8:09 AM EDT Prediabetes Essential hypertension HIV 1/2 ANTIGEN/ANTIBODY, FOURTH GENERATION W/RFL Routine 11/23/2024 8:09 AM EDT Prediabetes Essential hypertension COMPREHENSIVE METABOLIC PANEL Routine 11/23/2024 8:09 AM EDT Prediabetes Essential hypertension Stage 3 chronic kidney disease, unspecified whether stage 3a or 3b CKD (CMS/HCC) (HCC) CBC WITH AUTO DIFFERENTIAL Routine 11/23/2024 8:09 AM EDT Prediabetes Essential hypertension POCT GLYCATED HEMOGLOBIN, TOTAL Routine 09/11/2024 1:13 PM EDT Prediabetes from Last 3 Months or Most Recently Relevant to Health Maintenance Results * Influenza B (ID NOW Rapid Molecular) (12/06/2024 9:23 AM EDT) [facility] Influenza B Negative Negative, Indeterminate [facility] Swab 12/06/2024 9:23 AM EDT Judson Garcia MD POINT OF CARE TEST ENTER/EDIT OR DERABLES Final Result Performing Organization Address [facility]/ZIP Co de Phone Number [facility] [address] [place] [phone] * Influenza A (ID NOW Rapid Molecular) (12/06/2024 9:23 AM EDT) [facility] Influenza A Negative Negative, Indeterminate [facility] Swab 12/06/2024 9:23 AM EDT Judson Garcia MD POINT OF CARE TEST ENTER/EDIT OR DERABLES Final Result Performing Organization Address [facility]/ZIP Co de Phone Number [facility] [address] [place] [phone] * POCT COVID-19 Ag Ennis ID NOW (12/06/2024 9:23 AM EDT) [facility] Coronavirus Antigen PCR Negative Negative, Indeterminate, None Detected, Invalid, Specimen unsatisfactory for evaluation, Weakly Positive, 2+ Swab 12/06/2024 9:23 AM EDT Judson Garcia MD POINT OF CARE TEST ENTER/EDIT OR DERABLES Final Result * (ABNORMAL) CBC auto differential (11/23/2024 8:09 AM EDT) [facility] White Blood Count 6.8 4.8 - 10.8 X10*3/uL [facility] Red Blood Count 5.05 4.60 - 5.80 X10*6/uL [facility] Hemoglobin 15.8 14.0 - 18.0 g/dl [facility] Hematocrit 45.8 42.0 - 52.0 % [facility] Mean Corpuscular Volume 90.7 80.0 - 98.0 fL [facility] Mean Corpuscular Hemoglobin 31.3 27.0 - 33.0 pg [facility] Mean Corpuscular HGB Conc 34.5 31.0 - 36.0 g/dl [facility] Red Cell Distribution Width 12.3 11.0 - 16.0 % [facility] Platelet Count 212 160 - 400 X10*3/uL [facility] Mean Platelet Volume 11.5 9.4 - 12.4 fL [facility] Neutrophils Percent Auto 53.5 45 - 73 % [facility] Imm Gran Pct Auto 0.4 0.0 - 0.4 % [facility] Lymphocytes Percent Auto 27.7 20 - 40 % [facility] Monocytes Percent Auto 7.8 2 - 11 % [facility] Eosinophils Percent Auto 9.9(H) 0 - 4 % [facility] Basophils Percent Auto 0.7 0 - 2 % [facility] NRBC Pct Auto 0.0 0.0 - 0.2 /100WBC [facility] Neutrophils Absolute Auto 3.6 2.0 - 8.3 x10*3/uL [facility] Imm Gran Abs Auto 0.03 0.00 - 0.03 X10*3/uL [facility] Lymphocytes Absolute Auto 1.9 1.2 - 4.9 X10*3/uL [facility] Monocytes Absolute Auto 0.5 0.1 - 1.2 X10*3/uL [facility] Eosinophils Absolute Auto 0.7(H) 0.0 - 0.4 X10*3/uL [facility] Basophils Absolute Auto 0.1 0.0 - 0.2 X10*3/uL [facility] NRBC Abs Auto 0.000 0.0 - 0.012 X10*3/uL [facility] Blood Venous blood specimen / Unknown 11/23/2024 8:09 AM EDT 11/23/2024 11:26 AM EDT us Jennifer Coyle MD LAB BLOOD ORDERABLES Final Result Performing Organization Address [facility] Co de Phone Number [facility] [address] [place] [phone] * Hepatitis C Antibody with Reflex to HCV, RNA, Quantitative, Real-Time PCR (11/23/2024 8:09 AM EDT) Hepatitis C Antibody Nonreactive Nonreactive [facility] Comment:Antibodies to HCV no t detected; does not exclude early acuteHCV infection. Blood Venous blood specimen / Unknown 11/23/2024 8:09 AM EDT 11/23/2024 11:26 AM EDT Jennifer Coyle MD LAB BLOOD ORDERABLES Final Result Performing Organization Address [facility] Number [facility] [address] [place] [phone] * HIV-1/2 Antigen and Antibodies, Fourth Generation, with Reflexes (11/23/2024 8:09 AM EDT) Pathologist [facility] HIV AB/AG Nonreactive Nonreactive [facility] Comment:HIV-1 p24 Ag and/or HIV-1/HIV-2 Ab not detected.A test result that is nonreactive does not exclude thepossibility of exposure to or infection with HIV-1 and/orHIV-2. Nonreactive results in this assay for individualswith prior exposure to HIV-1 and/or HIV-2 may be due toantigen and antibody levels that are below the limit ofdetection of this assay.The [employer] HIV Ag/Ab Combo assay result andsupplemental assay results should be interpreted inconjunction with the patient's clinical presentation,history and other laboratory results. If the results areinconsistent with clinical evidence, additional testing issuggested to confirm the result. Blood Venous blood specimen / Unknown 11/23/2024 8:09 AM EDT 11/23/2024 11:26 AM EDT us Jennifer Coyle MD LAB BLOOD ORDERABLES Final Result Performing Organization Address City/[facility]/ZIP Co de Phone Number [facility] [address] [place] [phone] [phone] * (ABNORMAL) Lipid Panel, Standard (11/23/2024 8:09 AM EDT) Triglycerides 83 <150 mg/dL [facility] Comment:Desirable Triglyceri de: less than 150 mg/dLBorderline High Triglyceride 150-199 mg/dLHigh Triglyceride: 200-499 mg/dLVery High Triglyceride: greater than or equal to 5OO mg/dL Cholesterol 107 <200 mg/dL [facility] Comment:Desirable Cholestero l: less than 200 mg/dLBorderline High Cholesterol: 200-239 mg/dLHigh Cholesterol: greater than 239 mg/dL LDL Cholesterol Calculated 54 <100 mg/dL [facility] Comment:Desirable LDL: less than 100 mg/dLNear Optimal/Above Optimal LDL: 110- 129 mg/dLBorderline High LDL: 130-159 mg/dLHigh LDL: 160-189 mg/dLVery High LDL: greater than or equal to 190 mg/dL HDL Cholesterol 37(L) >40 mg/dL [facility] Comment:Desirable HDL: great er than 40 mg/dL Note: This HDL assay may give artificially low results in patients with liver disease. Blood Venous blood specimen / Unknown 11/23/2024 8:09 AM EDT 11/23/2024 11:26 AM EDT us Jennifer Coyle MD LAB BLOOD ORDERABLES Final Result Performing Organization Address City/[facility]/ZIP Co de Phone Number [facility] [address] [place] [phone] [phone] * (ABNORMAL) Comprehensive Metabolic Panel (11/23/2024 8:09 AM EDT) Sodium 139 135 - 145 mmol/L [facility] Potassium 4.0 3.3 - 5.1 mmol/L [facility] Chloride 107 96 - 108 mmol/L [facility] Carbon Dioxide 29 22 - 29 mmol/L [facility] Anion Gap 7(L) 12 - 20 [facility] Urea Nitrogen (BUN) 16 9 - 16 mg/dL [facility] Creatinine, Serum 0.96 0.5 - 1.4 mg/dL [facility] Estimated Glomerular Filt Rate >60 [facility] Comment:Chronic Kidney Disea se: Estimated GFR < 60 mL/min/1.06a6Phmdna Kidney Disease: Estimated GFR < 15 mL/min/1.73m2 Glucose 91 60 - 115 mg/dL [facility] Calcium 9.0 8.4 - 10.2 mg/dL [facility] Bilirubin, Total 0.7 0.0 - 1.0 mg/dL [facility] Aspartate Amino Transferase 30 5 - 37 U/L [facility] Alanine Aminotransferase 22 0 - 40 U/L [facility] Total Protein 7.3 6.5 - 8.0 g/dL [facility] Albumin Level 4.3 3.5 - 5.0 g/dL [facility] Alkaline Phosphatase 56 39 - 117 U/L [facility] Blood Venous blood specimen / Unknown 11/23/2024 8:09 AM EDT 11/23/2024 11:26 AM EDT us Jennifer Coyle MD LAB BLOOD ORDERABLES Final Result [facility] [address] [place] [phone] * POCT HGB A1C (09/11/2024 1:13 PM EDT) Hemoglobin A1C 5.2 4.0 - 5.7 % [employer] Lot # [id number] Lot# Expiration Date ,273,072 Blood 09/11/2024 1:13 PM EDT us Jennifer Coyle MD POINT OF CARE TEST EN TER/EDIT ORDERABLES Final Result from Last 3 Months or Most Recently Relevant to Health Maintenance Insurance [place] [id number] [facility] DENTAL - HSN FULL (MEDICAID) DENTAL - HSN FULL (MEDICAID) Care Teams Track Laying Machine Operator Relationship Specialty Start Date End Date Jennifer Powell MD [address] [place] [phone] PCP - General Family Medicine 02/11/20
--- OUTSIDE RECORDS SUMMARY | 2025-01-09 23:55 | XMS_ITS | Clinical Summary ---
Author Organization [facility] Facility Address [address] [address] Care Team Providers Care Electronic Coils Supervisor Name Role Phone Jose Schroeder MD Primary Care Provider [phone] Allergies No known active allergies Medications amLODIPine [...] Visit [facility] [address] [place] [phone] Jose Schroeder MD [address] [phone] Health Maintenance Due Date Last Done Comments [...] Medicaid [place] Care Teams Electronic Coils Supervisor Relationship Specialty Start Date End Date Jose Schroeder MD PCP - General Nephrology 05/15/20
--- OUTSIDE RECORDS SUMMARY | 2025-01-09 23:55 | XMS_ITS | Encounter Summary ---
Author Organization [facility] Address [address] [facility] [address] [place] [phone] Phone Care Team Providers Care Oxygen Equipment Preparer Name Role Phone Unavailable Primary Care Provider Unavailabl e Encounter Details Date Type Department Care Team (Latest Contact Info) Description 05/30/2017 Ancillary Orders [facility] [address] [place] [address] [place] [address] Cesar Armenta DO [address] [place] [address] NSTEMI (non-ST elevated myocardial infarction) Social History [...] It is not the complete legal health record.[facility]
--- OUTSIDE RECORDS SUMMARY | 2025-01-09 23:55 | XMS_ITS | Encounter Summary ---
Author Organization [employer] Address [address] [facility] 7t [place] [address] Care Team Providers Care Industrial Truck Operator Name Role Phone Jennifer Powell MD Primary Care Provide r Reason for Visit * Reason Onset Date Comments Med Refill 01/06/2024 Encounter Details Date Type Department Care Team ([facility] st Contact Info) Description 01/06/2024 Telephone [facility] [address] [place] [address] Jennifer Powell MD [address] [place] [address] Med Refill Social History Tobacco Use Types [...] 300 MG capsule To be sent to: [facility] documented in this encounter Plan of Treatment Upcoming Encounters Date Type Department Care Team (Late st Contact Info) Description 01/25/2025 9:30 AM EST Telemedicine [facility] [address] [place] [phone] Sandra Heck RN 03/01/2025 1:30 PM EST Office Visit [facility] [address] [place] [phone] Jennifer oPwell MD [address] [place] [phone] documented as of this encounter Visit Diagnoses Not on filedocumented in this encounter Additional Health Concerns Assessment Noted Time PHQ-9 Depression Total Score: 0 07/03/19 23 8:54 AM EDT documented as of this encounter Care Teams Industrial Truck Operator Relationship Specialty Start Date End Date Jennifer Powell MD [address] [place] [phone] PCP - General Family Medicine 02/11/20 documented as of this encounter
--- OUTSIDE RECORDS SUMMARY | 2025-01-09 23:55 | XMS_ITS | Encounter Summary ---
Author Organization [employer] Address [address] [place] [address] 7t [place] [address] Care Team Providers Care Teletype Mechanic Name Role Phone Jennifer Powell MD Primary Care Provide r Encounter Details Date Type Department Care Team ([facility] Contact Info) Description 02/04/2022 Abstract [facility] ADULT DENTAL [address] [place] [address] Yann Ren, EFRAIN [address] [place] [address] Social History Tobacco Use Types Packs/Day Years [...] Info) Description 01/25/2025 9:30 AM EST Telemedicine [facility] MEDICINE [address] [place] [phone] Sandra Heck RN 03/01/2025 1:30 PM EST Office Visit [facility] [address] [place] [phone] Jennifer Powell MD [address] [place] [address] documented as of this encounter Visit Diagnoses Not on filedocumented in this encounter Care Teams Teletype Mechanic Relationship Specialty Start Date End Date Jennifer Powell MD [address] [place] [phone] PCP - General Family Medicine 02/11/20 documented as of this encounter
--- OUTSIDE RECORDS SUMMARY | 2025-01-09 23:55 | XMS_ITS | Encounter Summary ---
Author Organization [employer] Address [address] [facility] 7t [place] [address] Care Team Providers Care Exceptional Children'S Teacher Name Role Phone Jennifer Powell MD Primary Care Provide r Reason for Visit * Reason Comments Med Refill Encounter Details Date Type Department Care Team (Late st Contact Info) Description 09/06/2024 Refill [facility] MED & PEDS [address] [place], [place] [phone] Kimberley Leija MD [address] [place] [address] Cervical spondylosis Social History Tobacco Use Types [...] EST Telemedicine [facility] MEDICINE [address] [place] [phone] Sandra Heck RN 03/01/2025 1:30 PM EST Office Visit [facility] [address] [place] [phone] Jennifer Powell MD [address] [place] [phone] documented as of this encounter Visit Diagnoses Diagnosis Cervical spondylosis Cervical spondylosis without myelopathy documented in this encounter Additional Health Concerns Assessment Noted Time PHQ-9 Depression Total Score: 0 07/03/19 23 8:54 AM EDT documented as of this encounter Care Teams Exceptional Children'S Teacher Relationship Specialty Start Date End Date Jennifer Powell MD [address] [place] [phone] PCP - General Family Medicine 02/11/20 documented as of this encounter
--- OUTSIDE RECORDS SUMMARY | 2025-01-09 23:55 | XMS_ITS | Encounter Summary ---
Author Organization [employer] Address [address] [facility] 7t [place] [address] Care Team Providers Care Memorandum Statement Clerk Name Role Phone Jennifer Powell MD Primary Care Provide r Reason for Visit * Reason Comments Med Refill Encounter Details Date Type Department Care Team ([facility] st Contact Info) Description 12/06/2024 Refill [facility] MEDICINE [address] [place], [place] [phone] Jennifer Powell MD [address] [place] [address] Essential hypertension; Fatigue, unspecified type Social History [...] Info) Description 01/25/2025 9:30 AM EST Telemedicine [address] [phone] Sandra Heck RN 03/01/2025 1:30 PM EST Office Visit [address] [address] Jennifer Powell MD [address] [place] [phone] documented as of this encounter Visit Diagnoses Diagnosis Essential hypertension Unspecified essential hypertension Fatigue, unspecified type documented in this encounter Additional Health Concerns Assessment Noted Time PHQ-9 Depression Total Score: 0 09/12/19 25 1:11 PM EDT documented as of this encounter Care Teams Memorandum Statement Clerk Relationship Specialty Start Date End Date Jennifer Powell MD [address] [place] [phone] PCP - General Family Medicine 02/11/20 documented as of this encounter
--- OUTSIDE RECORDS SUMMARY | 2025-01-09 23:55 | XMS_ITS | Encounter Summary ---
Author Organization [facility] Address [address] [place] [phone] Phone Care Team Providers Care Typewriter Mechanic Name Role Phone Unavailable Primary Care Provider Unavailabl e Encounter Details Date Type Department Care Team (Latest Contact Info) Description 05/30/2017 Ancillary Orders [facility] [address] [place] [address] [place] [address] Don Persaud MD [address] [place] [address] [email or web address] NSTEMI (non-ST elevated myocardial [...] It is not the complete legal health record.[facility]
--- OUTSIDE RECORDS SUMMARY | 2025-01-09 23:55 | XMS_ITS | Encounter Summary ---
Author Organization [facility] Address [address] [place] [phone] Phone Care Team Providers Care Stage Director Name Role Phone Unavailable Primary Care Provider Unavailabl e Encounter Details Date Type Department Care Team (Late st Contact Info) Description 05/30/2017 Ancillary Orders [facility] [address] [place] [address] Don Persaud MD [address] [place] [address] [email or web address] Social History Tobacco Use Types Packs/Day Years [...] It is not the complete legal health record.[facility]
--- OUTSIDE RECORDS SUMMARY | 2025-01-09 23:55 | XMS_ITS | Encounter Summary ---
Author Organization [facility] Address [address] [facility] [facility] [address] [place] [address] Phone Care Team Providers Care Illuminating Engineer Name Role Phone Jose Schroeder MD Primary Care Provider [phone] Encounter Details Date Type Department Care Team (Late Contact Info) Description 05/20/2020 Orders Only [facility] [address] [facility] [address] [place] [address] Provider, MD Taniya Social History Tobacco [...] Visit [facility] [address] [place] [phone] Jose Schoreder MD [address] [facility] [address] [place] [phone] documented as of this encounter Procedures Procedure Name Priority Date/Time Associated Diagnosis Comments EXT RESULT ENTRY Routine 05/20/2020 documented in this encounter Results * EXT RESULT ENTRY (05/20/2020) us Historical Provider LAB BLOOD ORDERABLES Ashleigh l Result documented in this encounter Visit Diagnoses Not on filedocumented in this encounter Care Teams Illuminating Engineer Relationship Specialty Start Date End Date Jose Schroeder MD PCP - General Nephrology 05/15/20 documented as of this encounter
--- OUTSIDE RECORDS SUMMARY | 2025-01-09 23:55 | XMS_ITS | Clinical Summary ---
Author Organization [facility] Address [address] [place], [place] [phone] Phone Care Team Providers Care Pacs Administrator Name Role Phone Unavailable Primary Care Provider [...] & B MEDICARE PART A & B ([place]) [address] [place] [address] MEDICARE PART A & B MEDICARE PART A & B MEDICARE PART A & B Additional Source Comments The information contained in this document represents components of the legal health record. It is not the complete legal health record.[facility]
--- OUTSIDE RECORDS SUMMARY | 2025-01-09 23:55 | XMS_ITS | Encounter Summary ---
Author Organization [facility] Address [address] [facility] 7t [place] [address] Care Team Providers Care Sports Medicine Physician Name Role Phone Jennifer Powell MD Primary Care Provide r Reason for Visit * Reason Onset Date Comments Med Refill 02/01/2023 Encounter Details Date Type Department Care Team (Late st Contact Info) Description 02/01/2023 Refill [facility] [address] [place] [address] Jennifer Powell MD [address] [place] [address] Cervical spondylosis (Primary Dx) Social History Tobacco [...] the past 12 months, has t he [employer], gas, oil or water [employer] threatened to shut off services in your [...] encounter Miscellaneous Notes * Telephone Encounter - Audrey Peterson - 02/01/2023 12:12 PM EST Tc from pt daughter requesting med refill on Tramadol 50 Mg tablet. Please sent to [facility] - [place], [place] - [address] [place] [address] documented in this encounter Plan of Treatment Upcoming Encounters Date Type Department Care Team (Late st Contact Info) Description 01/25/2025 9:30 AM EST Telemedicine [facility] [address] [place] [address] Sandra Heck RN 03/01/2025 1:30 PM EST Office Visit [facility] [address] [place] [phone] Jennifer Powell MD [address] [place] [address] documented as of this encounter Visit Diagnoses Diagnosis Cervical spondylosis- Primary Cervical spondylosis without myelopathy documented in this encounter Additional Health Concerns Assessment Noted Time PHQ-9 Depression Total Score: 0 07/03/19 23 8:54 AM EDT documented as of this encounter Care Teams Sports Medicine Physician Relationship Specialty Start Date End Date Jennifer Powell MD [address] [place] [phone] PCP - General Family Medicine 02/11/20 documented as of this encounter
== END 2025-01-09 13:18 | disposition home or self-care (01) ==
LOC: HO.PMC 12:38
PROVIDERS: PCP Internal Medicine; Visit Provider Anesthesiology
DX: M47.812 Spondylosis without myelopathy or radiculopathy, cervical region (principal)
CPT/HCPCS: 99213

== ENCOUNTER → 2025-01-09 12:38 | Outpatient (BNVA) | payer MEDICARE, MEDICAID, SELFPAY | PROVIDERS: PCP Internal Medicine; Visit Provider Anesthesiology | DX: M47.812 Spondylosis without myelopathy or radiculopathy, cervical region (principal) | CPT/HCPCS: 99212 ==

== ENCOUNTER 2025-01-18 07:06 | Outpatient (REF) | payer MEDICARE, MEDICAID, SELFPAY ==
--- OUTSIDE RECORDS SUMMARY | 2025-01-18 07:09 | XMS_ITS | Encounter Summary ---
Author Organization [facility] Address [address] [place] [address] Phone Care Team Providers Care Bodybuilder Name Role Phone Unavailable Primary Care Provider Unavailabl e Encounter Details Date Type Department Care Team (Latest Contact Info) Description 05/30/2017 Ancillary Orders [facility] [address] [place] [address] [place] [address] Don Persaud MD [address] [place] [address] [email or web address] NSTEMI (non-ST elevated myocardial infarction) [...] It is not the complete legal health record.[facility]
--- OUTSIDE RECORDS SUMMARY | 2025-01-18 07:09 | XMS_ITS | Encounter Summary ---
Author Organization [facility] Address [address] [place] [address] 7[address] [place] [address] Care Team Providers Care Rn Chronic Name Role Phone Jennifer Powell MD Primary Care Provide r Encounter Details Date Type Department Care Team ([facility] Contact Info) Description 02/04/2022 Abstract [facility] [address] [place] [address] Yann Ren, EFRAIN [address] [place] [address] Social History Tobacco Use Types Packs/Day Years [...] Info) Description 01/25/2025 9:30 AM EST Telemedicine [facility] [address] [place] [phone] Sandra Heck RN 03/01/2025 1:30 PM EST Office Visit [facility] [address] [place] [phone] Jennifer Powell MD [address] [place] [address] documented as of this encounter Visit Diagnoses Not on filedocumented in this encounter Care Teams Rn Chronic Relationship Specialty Start Date End Date Jennifer Powell MD [address] [place] [phone] PCP - General Family Medicine 02/11/20 documented as of this encounter
--- OUTSIDE RECORDS SUMMARY | 2025-01-18 07:09 | XMS_ITS | Encounter Summary ---
Author Organization [facility] Address [address] [place] [address] 7t [place] [address] Care Team Providers Care Vegetable Trimmer Name Role Phone Jennifer Powell MD Primary Care Provide r Reason for Visit * Reason Comments Med Refill Encounter Details Date Type Department Care Team (Late st Contact Info) Description 2022 Refill [facility] [address] [place], [place] [phone] Jennifer Powell MD [address] [place], [place] [phone] Social History Tobacco Use Types Packs/Day Years [...] Info) Description 01/25/2025 9:30 AM EST Telemedicine [facility] [address] [place] [address] [phone] Sandra Heck RN 03/01/2025 1:30 PM EST Office Visit [facility] [address] [place] [address] [phone] Jennifer Powell MD [address] [place] [address] documented as of this encounter Visit Diagnoses Not on filedocumented in this encounter Additional Health Concerns Assessment Noted Time PHQ-9 Depression Total Score: 0 07/03/19 23 8:54 AM EDT documented as of this encounter Care Teams Vegetable Trimmer Relationship Specialty Start Date End Date Jennifer Powell MD [address] [facility] [place] [address] PCP - General Family Medicine 02/11/20 documented as of this encounter
--- OUTSIDE RECORDS SUMMARY | 2025-01-18 07:09 | XMS_ITS | Encounter Summary ---
Author Organization [facility] Address [address] [place] [address] Phone Care Team Providers Care Newborn Photographer Name Role Phone Unavailable Primary Care Provider Unavailabl e Encounter Details Date Type Department Care Team (Late st Contact Info) Description 05/30/2017 Ancillary Orders [facility] [address] [place] [address] Don Persaud MD [address] [place] [address] [email or web address] Social History Tobacco Use Types Packs/Day Years [...] It is not the complete legal health record.[facility]
--- OUTSIDE RECORDS SUMMARY | 2025-01-18 07:09 | XMS_ITS | Encounter Summary ---
Author Organization [facility] Address [address] [facility] 200 [place] [address] Phone Care Team Providers Care Mri Manager Name Role Phone Jose Schroeder MD Primary Care Provider [phone] Encounter Details Date Type Department Care Team (Late Contact Info) Description 05/20/2020 Orders Only [facility] [address] [facility] 200 [place] [address] Provider, MD Taniya Social History Tobacco [...] Visit [facility] [address] [place] [phone] Jose Schroeder MD [address] [facility] [address] [place] [phone] documented as of this encounter Procedures Procedure Name Priority Date/Time Associated Diagnosis Comments EXT RESULT ENTRY Routine 05/20/2020 documented in this encounter Results * EXT RESULT ENTRY (05/20/2020) us Historical Provider LAB BLOOD ORDERABLES Ashleigh l Result documented in this encounter Visit Diagnoses Not on filedocumented in this encounter Care Teams Mri Manager Relationship Specialty Start Date End Date Jose Schroeder MD PCP - General Nephrology 05/15/20 documented as of this encounter
--- OUTSIDE RECORDS SUMMARY | 2025-01-18 07:09 | XMS_ITS | Clinical Summary ---
Author Organization [facility] Address [address] [place], [place] [phone] Phone Care Team Providers Care Worker'S Compensation Claims Examiner Name Role Phone Unavailable Primary Care Provider [...] & B MEDICARE PART A & B ([place]) [address] [place] [address] MEDICARE PART A & B MEDICARE PART A & B MEDICARE PART A & B Additional Source Comments The information contained in this document represents components of the legal health record. It is not the complete legal health record.[facility]
--- OUTSIDE RECORDS SUMMARY | 2025-01-18 07:09 | XMS_ITS | Encounter Summary ---
Author Organization [facility] Address [address] [facility] 7t [place] [address] Care Team Providers Care Utility Sales Representative Name Role Phone Jennifer Powell MD Primary Care Provide r Reason for Visit * Reason Onset Date Comments Med Refill 08/27/2024 Encounter Details Date Type Department Care Team ([facility] st Contact Info) Description 08/27/2024 Telephone [facility] [address] [place] [address] Jennifer Powell MD [address] [place] [address] Med Refill Social History Tobacco Use Types [...] 300 MG capsule To be sent to: [facility] documented in this encounter Plan of Treatment Upcoming Encounters Date Type Department Care Team (Late st Contact Info) Description 01/25/2025 9:30 AM EST Telemedicine [facility] [address] [place] [phone] Sandra Heck RN 03/01/2025 1:30 PM EST Office Visit [facility] [address] [place] [phone] Jennifer Powell MD [address] [place] [address] documented as of this encounter Visit Diagnoses Not on filedocumented in this encounter Additional Health Concerns Assessment Noted Time PHQ-9 Depression Total Score: 0 07/03/19 23 8:54 AM EDT documented as of this encounter Care Teams Utility Sales Representative Relationship Specialty Start Date End Date Jennifer Powell MD [address] [place] [phone] PCP - General Family Medicine 02/11/20 documented as of this encounter
--- OUTSIDE RECORDS SUMMARY | 2025-01-18 07:09 | XMS_ITS | Clinical Summary ---
Author Organization [employer] Address [address] [place] [address] 7[address] [place] [address] Care Team Providers Care Drywall Taper Name Role Phone Jennifer Powell MD Primary [...] morning. 90 tablet 2 12/07/19 25 Active gabapentin (Neurontin) 300 MG capsuleIndicati ons:Cervical spondylosis TAKE 1 CAPSULE BY MOUTH THREE TIMES DAILY 90 capsule 12/29/19 25 Active traMADol (Ultram) 50 MG tabletIndicatio ns:Cervical spondylosis Take 1 tablet (50 mg) by mouth every 8 (eight) hours if needed for severe pain for up to 28 days. 84 tablet 3:42 PM EST 01/11/20 25 025 Active amLODIPine (Norvasc) 10 MG tablet Take 1 tablet by mouth. 10/25/19 20 025 Discontinued gabapentin (Neurontin) 300 MG capsuleIndicati ons:Cervical spondylosis TAKE 1 CAPSULE BY MOUTH THREE TIMES DAILY 90 capsule 11/30/19 25 025 Discontinued levoFLOXacin (Levaquin) 500 MG tabletIndicatio ns:Recurrent sinusitis Take 1 tablet (500 mg) by mouth Once per day for 7 days. 7 tablet 12/13/19 25 025 traMADol (Ultram) 50 MG tabletIndicatio ns:Cervical spondylosis Take 1 tablet (50 mg) by mouth every 8 (eight) hours if needed for severe pain for up to 28 days. 84 tablet 12/14/19 25 025 Discontinued(R eorder (will not trigger [...] eye 06/20/2017 Coronary artery disease invo lving [place] coronary artery of [place] heart without angina pectoris 06/20/2017 Dyslipidemia 06/20/2017 [...] Encounters Date Type Department Care Team Description 01/10/2025 Refill [facility] [address] [place] [address] Sandra Heck RN Cervical spondylosis 12/28/2024 Refill [facility] [address] [place] [address] Jennifer Powell MD Cervical spondylosis 12/21/2024 Refill [facility] [address] [place] [address] Jennifer Powell MD 12/13/2024 Refill [facility] [address] [place] [address] Sandra Heck RN Cervical spondylosis 12/12/2024 2:00 PM EDT Office Visit [facility] [address] [place] [address] Jennifer Powell MD Recurrent sinusitis (Primary Dx); Essential hypertension; Coronary artery disease involving [place] coronary artery of [place] heart without angina pectoris 12/12/2024 Travel 12/11/2024 Telephone [facility] [address] [place] [address] Jennifer Powell MD Chart Prep 12/06/2024 8:40 AM EDT Office Visit [facility] [address] [place] [address] 19400 Judson Garcia MD Subacute ethmoidal sinusitis (Primary Dx) 12/06/2024 Refill [facility] [address] [place] [address] [phone] Jennifer Powell MD Essential hypertension; Fatigue, unspecified type 12/06/2024 Travel 12/05/2024 Patient Outreach [facility] [address] [place] [address] Jennifer Powell MD Pre-visit Planning (SDOH negative, Tobacco screening negative. ) 12/05/2024 Refill [facility] [address] [place] [address] Kimberley Leija MD Cervical spondylosis; Essential hypertension; Fatigue, unspecified type 12/05/2024 Refill [facility] [address] [place] [address] 27[address] Jeninfer Powell MD Essential hypertension; Fatigue, unspecified type 12/05/2024 Travel 12/05/2024 Telephone [facility] [address] [place] [phone] Judson Garcia MD medication not effective 11/28/2024 Refill [facility] [address] [place] [address] 341[address] Jennifer Powell MD Cervical spondylosis 11/23/2024 8:40 AM EDT Office Visit [facility] [address] [place] [address] 12070 Judson Garcia MD Acute non-recurrent frontal sinusitis (Primary Dx) 11/23/2024 Travel 11/12/2024 Refill [facility] [address] [place] [address] 89[address] Sandra Heck RN Cervical spondylosis 10/30/2024 Refill [facility] [address] [place] [address] Jennifer Powell MD 10/29/2024 Refill [facility] [address] [place] [address] Jennifer Powell MD Cervical spondylosis from Last [...] Info) Description 01/25/2025 9:30 AM EST Telemedicine [facility] [address] [place] [address] Sandra Heck RN 03/01/2025 1:30 PM EST Office Visit [facility] [address] [place] [address] 40[address] Jennifer Powell MD [address] [place] [address] Health Maintenance Due Date Last Done Comments [...] NOW Rapid Molecular) (12/06/2024 9:23 AM EDT) Influenza B Negative Negative, Indeterminate [facility] Swab 12/06/2024 9:23 AM EDT us Judson Garcia MD POINT OF CARE TEST ENTER/EDIT OR DERABLES Final Result [facility] [address] [place] [address] [phone] * Influenza A (ID NOW Rapid Molecular) (12/06/2024 9:23 AM EDT) Pathologist [facility] Influenza A Negative Negative, Indeterminate [facility] Swab 12/06/2024 9:23 AM EDT Judson Garcia MD POINT OF CARE TEST ENTER/EDIT OR DERABLES Final Result Performing Organization Address [facility]/ZIP Co de Phone Number [facility] [address] [place] [address] [phone] * POCT COVID-19 Ag Ennis ID NOW (12/06/2024 9:23 AM EDT) Pathologist [facility] Coronavirus Antigen PCR Negative Negative, Indeterminate, None Detected, Invalid, Specimen unsatisfactory for evaluation, Weakly Positive, 2+ Swab 12/06/2024 9:23 AM EDT Judson Garcia MD POINT OF CARE TEST ENTER/EDIT OR DERABLES Final Result * (ABNORMAL) CBC auto differential (11/23/2024 8:09 AM EDT) Pathologist [facility] White Blood Count 6.8 4.8 - 10.8 X10*3/uL [facility] Red Blood Count 5.05 4.60 - 5.80 X10*6/uL [facility] Hemoglobin 15.8 14.0 - 18.0 g/dl [facility] Hematocrit 45.8 42.0 - 52.0 % [facility] Mean Corpuscular Volume 90.7 80.0 - 98.0 fL [facility] Mean Corpuscular Hemoglobin 31.3 27.0 - 33.0 pg [facility] Mean Corpuscular HGB Conc 34.5 31.0 - 36.0 g/dl [facility] Red Cell Distribution Width 12.3 11.0 - 16.0 % [facility] Platelet Count 212 160 - 400 X10*3/uL [facility] Mean Platelet Volume 11.5 9.4 - 12.4 fL [facility] Neutrophils Percent Auto 53.5 45 - 73 % [facility] Imm Gran Pct Auto 0.4 0.0 - 0.4 % [facility] Lymphocytes Percent Auto 27.7 20 - 40 % [facility] Monocytes Percent Auto 7.8 2 - 11 % [facility] Eosinophils Percent Auto 9.9(H) 0 - 4 % [facility] Basophils Percent Auto 0.7 0 - 2 % [facility] NRBC Pct Auto 0.0 0.0 - 0.2 /100WBC [facility] Neutrophils Absolute Auto 3.6 2.0 - 8.3 x10*3/uL [facility] Imm Gran Abs Auto 0.03 0.00 - 0.03 X10*3/uL [facility] Lymphocytes Absolute Auto 1.9 1.2 - 4.9 X10*3/uL [facility] Monocytes Absolute Auto 0.5 0.1 - 1.2 X10*3/uL [facility] Eosinophils Absolute Auto 0.7(H) 0.0 - 0.4 X10*3/uL [facility] Basophils Absolute Auto 0.1 0.0 - 0.2 X10*3/uL [facility] NRBC Abs Auto 0.000 0.0 - 0.012 X10*3/uL [facility] Blood Venous blood specimen / Unknown 11/23/2024 8:09 AM EDT 11/23/2024 11:26 AM EDT us Jennifer Coyle MD LAB BLOOD ORDERABLES Final Result [facility] [address] [place] [phone] * Hepatitis C Antibody with Reflex to HCV, RNA, Quantitative, Real-Time PCR (11/23/2024 8:09 AM EDT) Hepatitis C Antibody Nonreactive Nonreactive [facility] Comment:Antibodies to HCV no t detected; does not exclude early acuteHCV infection. Blood Venous blood specimen / Unknown 11/23/2024 8:09 AM EDT 11/23/2024 11:26 AM EDT us Jennifer Coyle MD LAB BLOOD ORDERABLES Final Result Performing Organization Address [facility] Number [facility] [address] [place] [phone] * HIV-1/2 Antigen and Antibodies, Fourth Generation, with Reflexes (11/23/2024 8:09 AM EDT) Pathologist [facility] HIV AB/AG Nonreactive Nonreactive [facility] Comment:HIV-1 p24 Ag and/or HIV-1/HIV-2 Ab not detected.A test result that is nonreactive does not exclude thepossibility of exposure to or infection with HIV-1 and/orHIV-2. Nonreactive results in this assay for individualswith prior exposure to HIV-1 and/or HIV-2 may be due toantigen and antibody levels that are below the limit ofdetection of this assay.The [employer] Admit HIV Ag/Ab Combo assay result andsupplemental assay results should be interpreted inconjunction with the patient's clinical presentation,history and other laboratory results. If the results areinconsistent with clinical evidence, additional testing issuggested to confirm the result. Blood Venous blood specimen / Unknown 11/23/2024 8:09 AM EDT 11/23/2024 11:26 AM EDT us Jennifer Coyle MD LAB BLOOD ORDERABLES Final Result [facility] [address] [place] [phone] * (ABNORMAL) Lipid Panel, Standard (11/23/2024 8:09 AM EDT) Triglycerides 83 <150 mg/dL [facility] Comment:Desirable Triglyceri de: less than 150 mg/dLBorderline High Triglyceride 150-199 mg/dLHigh Triglyceride: 200-499 mg/dLVery High Triglyceride: greater than or equal to 5OO mg/dL Cholesterol 107 <200 mg/dL [facility] Comment:Desirable Cholestero l: less than 200 mg/dLBorderline High Cholesterol: 200-239 mg/dLHigh Cholesterol: greater than 239 mg/dL LDL Cholesterol Calculated 54 <100 mg/dL [facility] Comment:Desirable LDL: less than 100 mg/dLNear Optimal/Above Optimal LDL: 110- 129 mg/dLBorderline High LDL: 130-159 mg/dLHigh LDL: 160-189 mg/dLVery High LDL: greater than or equal to 190 mg/dL HDL Cholesterol 37(L) >40 mg/dL [facility] Comment:Desirable HDL: great er than 40 mg/dL Note: This HDL assay may give artificially low results in patients with liver disease. Blood Venous blood specimen / Unknown 11/23/2024 8:09 AM EDT 11/23/2024 11:26 AM EDT Jennifer Coyle MD LAB BLOOD ORDERABLES Final Result [facility] [address] [place] [phone] * (ABNORMAL) Comprehensive Metabolic Panel (11/23/2024 8:09 AM EDT) Sodium 139 135 - 145 mmol/L [facility] Potassium 4.0 3.3 - 5.1 mmol/L [facility] Chloride 107 96 - 108 mmol/L [facility] Carbon Dioxide 29 22 - 29 mmol/L [facility] Anion Gap 7(L) 12 - 20 [facility] Urea Nitrogen (BUN) 16 9 - 16 mg/dL [facility] Creatinine, Serum 0.96 0.5 - 1.4 mg/dL [facility] Estimated Glomerular Filt Rate >60 [facility] Comment:Chronic Kidney Disea se: Estimated GFR < 60 mL/min/1.74y7Obunhr Kidney Disease: Estimated GFR < 15 mL/min/1.73m2 Glucose 91 60 - 115 mg/dL [facility] Calcium 9.0 8.4 - 10.2 mg/dL [facility] Bilirubin, Total 0.7 0.0 - 1.0 mg/dL [facility] Aspartate Amino Transferase 30 5 - 37 U/L [facility] Alanine Aminotransferase 22 0 - 40 U/L [facility] Total Protein 7.3 6.5 - 8.0 g/dL [facility] Albumin Level 4.3 3.5 - 5.0 g/dL [facility] Alkaline Phosphatase 56 39 - 117 U/L [facility] Blood Venous blood specimen / Unknown 11/23/2024 8:09 AM EDT 11/23/2024 11:26 AM EDT us Jennifer Coyle MD LAB BLOOD ORDERABLES Final Result [facility] [address] [place] [address] [phone] * POCT HGB A1C (09/11/2024 1:13 PM EDT) Hemoglobin A1C 5.2 4.0 - 5.7 % QC Media Lot # [id number] Lot# Expiration Date Blood 09/11/2024 1:13 PM EDT Jennifer Coyle MD POINT OF CARE TEST EN TER/EDIT ORDERABLES Final Result from Last 3 Months or Most Recently Relevant to Health Maintenance Insurance MEDICARE [facility] STANDARD DENTAL - HSN FULL (MEDICAID) DENTAL - HSN FULL (MEDICAID) Care Teams Drywall Taper Relationship Specialty Start Date End Date Jennifer Powell MD [address] [place] [phone] PCP - General Family Medicine 02/11/20
--- OUTSIDE RECORDS SUMMARY | 2025-01-18 07:09 | XMS_ITS | Encounter Summary ---
Author Organization [email or web address] Address [address] [facility] 7t [place] [address] Care Team Providers Care Make Up Girl Name Role Phone Jennifer Powell MD Primary Care Provide r Reason for Visit * Reason Comments Med Refill Encounter Details Date Type Department Care Team ([facility] st Contact Info) Description 12/21/2024 Refill [facility] [address] [place] [address] Jennifer Powell MD [address] [place] [address] Social History Tobacco Use Types Packs/Day Years [...] Info) Description 01/25/2025 9:30 AM EST Telemedicine [facility] [address] [place] [phone] Sandra Heck RN 03/01/2025 1:30 PM EST Office Visit [facility] [address] [place] [phone] Jennifer Powell MD [address] [place] [phone] documented as of this encounter Visit Diagnoses Not on filedocumented in this encounter Additional Health Concerns Assessment Noted Time PHQ-9 Depression Total Score: 0 09/12/19 25 1:11 PM EDT documented as of this encounter Care Teams Make Up Girl Relationship Specialty Start Date End Date Jennifer Powell MD [address] [place] [phone] PCP - General Family Medicine 02/11/20 documented as of this encounter
--- OUTSIDE RECORDS SUMMARY | 2025-01-18 07:09 | XMS_ITS | Clinical Summary ---
Author Organization [facility] Address [address] [address] Care Team Providers Care Air Carrier Operations Inspector Name Role Phone Jose Schroeder MD Primary Care Provider [phone] Allergies No known active allergies Medications amLODIPine [...] Alanine aminotransferase above reference range 1 04/05/2018 Resolved Problems Problem Noted Date Diagnosed Date Resolved Date 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 Immunizations Immunization Administration Dates Next Due Influenza Split High Dose Pr eservative Free IM 12/23/2016 Influenza, Quadrivalent, Pre servative Free 02/10/2021,01/17/2019 Influenza, Unspecified 11/12/2021,12/06/2019 Moderna SARS-COV-2 03/04/2022,,05/02/2020,04/04 Pneumococcal Conjugate 13-Valent 01/17/2019 Pneumococcal Polysaccharide 11/16/2021 Shingrix 01/19/2022,11/16/2021 Tdap 11/12/2021 Zoster 01/19/2022,11/16/2021 Family History Medical History Relation Comments Cancer [...] Visit [facility] [address] [place] [phone] Jose Schroeder MD [address] [facility] [address] [place] [address] Health Maintenance Due Date Last Done Comments [...] Medicaid [place] Care Teams Air Carrier Operations Inspector Relationship Specialty Start Date End Date Jose Schroeder MD PCP - General Nephrology 05/15/20
--- OUTSIDE RECORDS SUMMARY | 2025-01-18 07:09 | XMS_ITS | Encounter Summary ---
Author Organization [employer] Address [address] [facility] 7t [place] [address] Care Team Providers Care Woods Manager Name Role Phone Jennifer Powell MD Primary Care Provide r Reason for Visit * Reason Onset Date Comments Med Refill 01/06/2024 Encounter Details Date Type Department Care Team ([facility] st Contact Info) Description 01/06/2024 Telephone [facility] [address] [place] [address] Jennifer Powell MD [address] [place] [address] Med Refill Social History Tobacco Use Types [...] 300 MG capsule To be sent to: [facility] documented in this encounter Plan of Treatment Upcoming Encounters Date Type Department Care Team (Late st Contact Info) Description 01/25/2025 9:30 AM EST Telemedicine [facility] [address] [place] [phone] Sandra Heck RN 03/01/2025 1:30 PM EST Office Visit [facility] [address] [place] [phone] Jennifer Powell MD [address] [place] [phone] documented as of this encounter Visit Diagnoses Not on filedocumented in this encounter Additional Health Concerns Assessment Noted Time PHQ-9 Depression Total Score: 0 07/03/19 23 8:54 AM EDT documented as of this encounter Care Teams Woods Manager Relationship Specialty Start Date End Date Jennifer Powell MD [address] [place] [phone] PCP - General Family Medicine 02/11/20 documented as of this encounter
--- OUTSIDE RECORDS SUMMARY | 2025-01-18 07:09 | XMS_ITS | Encounter Summary ---
Author Organization [facility] Address [address] [facility] [address] [place] [address] Phone Care Team Providers Care Dye Weigher Name Role Phone Unavailable Primary Care Provider Unavailabl e Encounter Details Date Type Department Care Team (Latest Contact Info) Description 05/30/2017 Ancillary Orders [facility] [address] [place] [address] [place] [address] Cesar Armenta DO [address] [place] [address] NSTEMI (non-ST elevated myocardial infarction) Social History [...]
--- OUTSIDE RECORDS SUMMARY | 2025-01-18 07:09 | XMS_ITS | Encounter Summary ---
Author Organization [employer] Address [address] [facility] 7t [place] [address] Care Team Providers Care Certified Drug Counselor Name Role Phone Jennifer Powell MD Primary Care Provide r Reason for Visit * Reason Onset Date Comments Med Refill 02/01/2023 Encounter Details Date Type Department Care Team (Late st Contact Info) Description 02/01/2023 Refill [facility] [address] [place] [address] Jennifer Powell MD [address] [place] [address] Cervical spondylosis (Primary Dx) Social History Tobacco [...] the past 12 months, has t he [employer], gas, oil or water [employer] threatened to shut off services in your [...] Tramadol 50 Mg tablet. Please sent to [facility] [place], [place] - [address] [place] [address] documented in this encounter Plan of Treatment Upcoming Encounters Date Type Department Care Team (Late st Contact Info) Description 01/25/2025 9:30 AM EST Telemedicine [facility] [address] [place] [phone] Sandra Heck RN 03/01/2025 1:30 PM EST Office Visit [facility] [address] [place] [phone] Jennifer Powell MD [address] [place] [phone] documented as of this encounter Visit Diagnoses Diagnosis Cervical spondylosis- Primary Cervical spondylosis without myelopathy documented in this encounter Additional Health Concerns Assessment Noted Time PHQ-9 Depression Total Score: 0 07/03/19 23 8:54 AM EDT documented as of this encounter Care Teams Certified Drug Counselor Relationship Specialty Start Date End Date Jennifer Powell MD [address] [place] [phone] PCP - General Family Medicine 02/11/20 documented as of this encounter
--- OUTSIDE RECORDS SUMMARY | 2025-01-18 07:09 | XMS_ITS | Encounter Summary ---
Author Organization [employer] Address [address] [facility] 7t [place] [address] Care Team Providers Care Manugrapher Name Role Phone Jennifer Powell MD Primary Care Provide r Reason for Visit * Reason Comments Med Refill Encounter Details Date Type Department Care Team (Late st Contact Info) Description 09/06/2024 Refill [facility] [address] [place], [place] [phone] Kimberley Leija MD [address] [place] [address] Cervical spondylosis Social History Tobacco Use Types [...] Info) Description 01/25/2025 9:30 AM EST Telemedicine [facility] [address] [place] [phone] Sandra Heck RN 03/01/2025 1:30 PM EST Office Visit [facility] [address] [place] [phone] Jennifer Powell MD [address] [place] [phone] documented as of this encounter Visit Diagnoses Diagnosis Cervical spondylosis Cervical spondylosis without myelopathy documented in this encounter Additional Health Concerns Assessment Noted Time PHQ-9 Depression Total Score: 0 07/03/19 23 8:54 AM EDT documented as of this encounter Care Teams Manugrapher Relationship Specialty Start Date End Date Jennifer Powell MD [address] [place] [phone] PCP - General Family Medicine 02/11/20 documented as of this encounter
--- OUTSIDE RECORDS SUMMARY | 2025-01-18 07:09 | XMS_ITS | Encounter Summary ---
Author Organization [employer] Address [address] [facility] 7t [place] [address] Care Team Providers Care Tribal Judge Name Role Phone Jennifer Powell MD Primary Care Provide r Reason for Visit * Reason Comments Med Refill Encounter Details Date Type Department Care Team ([facility] st Contact Info) Description 12/06/2024 Refill [facility] [address] [place], [place] [phone] Jennifer Powell MD [address] [place] [address] Essential hypertension; Fatigue, unspecified type Social History [...] Info) Description 01/25/2025 9:30 AM EST Telemedicine [address] [phone] Sandra Heck RN 03/01/2025 1:30 PM EST Office Visit [address] [phone] Jennifer Powell MD [address] [place] [phone] documented as of this encounter Visit Diagnoses Diagnosis Essential hypertension Unspecified essential hypertension Fatigue, unspecified type documented in this encounter Additional Health Concerns Assessment Noted Time PHQ-9 Depression Total Score: 0 09/12/19 25 1:11 PM EDT documented as of this encounter Care Teams Tribal Judge Relationship Specialty Start Date End Date Jennifer Powell MD [address] [place] [phone] PCP - General Family Medicine 02/11/20 documented as of this encounter
[2025-01-18 07:19] LABS: MANUAL DIFF FLAG NO
[2025-01-18 07:51] LABS: Hematocrit 44.9 % (42.0-52.0); Hemoglobin 15.3 g/dl (14.0-18.0); Imm Gran Abs Auto 0.05 X10*3/uL (0.00-0.03); Imm Gran Pct Auto 0.6 % (0.0-0.4); Lymphocytes Absolute Auto 2.4 X10*3/uL (1.2-4.9); Mean Corpuscular HGB Conc 34.1 g/dl (31.0-36.0); Mean Corpuscular Hemoglobin 31.1 pg (27.0-33.0); Mean Corpuscular Volume 91.3 fL (80.0-98.0); NRBC Abs Auto 0.000 X10*3/uL (0.0-0.012); NRBC Pct Auto 0.0 /100WBC (0.0-0.2); Platelet Count 200 X10*3/uL (160-400); Red Blood Count 4.92 X10*6/uL (4.60-5.80); White Blood Count 7.9 X10*3/uL (4.8-10.8)
[2025-01-18 08:00] LABS: Appearance Urine Clear; Glucose Urine UA Negative (Negative); PH 6.0 (5.0-9.0); Specific Gravity - Urine 1.025 (1.005-1.025)
[2025-01-18 08:21] LABS: Parathyroid Hormone Intact 111.3 pg/mL (8.7-77.1)
[2025-01-18 08:21] LABS: Microalbum/Creatinine Ratio Ur 11.1 ug/mg cr (<30); Protein/Creatinine Ratio, Ur 0.09 (<0.2); Total Protein Urine Random 18 mg/dL (<12)
[2025-01-18 08:29] LABS: Albumin Level 4.5 g/dL (3.5-5.0); Anion Gap 11 (12-20); Blood Urea Nitrogen 21 mg/dL (9-16); Calcium 9.0 mg/dL (8.4-10.2); Carbon Dioxide 26 mmol/L (22-29); Chloride 110 mmol/L (96-108); Magnesium 2.2 mg/dL (1.6-2.6); Potassium 4.0 mmol/L (3.3-5.1); Sodium 143 mmol/L (135-145)
== END 2025-01-18 07:07 | disposition home or self-care (01) ==
LOC: HO.LAB 07:06
PROVIDERS: PCP Internal Medicine; Visit Provider Internal Medicine Nephrology
DX: N18.31 Chronic kidney disease, stage 3a (principal); N25.0 Renal osteodystrophy
CPT/HCPCS: 36415; 80069; 81001; 82043; 82306; 82570; 83735; 83970; 84156; 85025